=== PATIENT | female | born 1950 | race Caucasian/White ===

== ENCOUNTER 2019-01-31 06:25 | Outpatient (RCR) | payer MEDICAID, SELFPAY | END 2019-02-27 00:01 | LOC: ONCMED 06:25 | PROVIDERS: Visit Provider Nurse Practitioner | DX: C79.51 Secondary malignant neoplasm of bone (principal); C50.411 Malignant neoplasm of upper-outer quadrant of right female breast; C78.7 Secondary malignant neoplasm of liver and intrahepatic bile duct; C77.3 Secondary and unspecified malignant neoplasm of axilla and upper limb lymph nodes; I10 Essential (primary) hypertension; M81.0 Age-related osteoporosis without current pathological fracture; G89.29 Other chronic pain; Z17.0 Estrogen receptor positive status [ER+]; Z79.899 Other long term (current) drug therapy; Z92.21 Personal history of antineoplastic chemotherapy; Z90.13 Acquired absence of bilateral breasts and nipples; Z92.23 Personal history of estrogen therapy; Z85.3 Personal history of malignant neoplasm of breast; Z92.3 Personal history of irradiation | CPT/HCPCS: 36591; 80053; 82607; 82746; 83090; 83921; 85025; 86300; 96372; 99214; J0897; J1642 ==

== ENCOUNTER 2019-03-06 07:25 | Outpatient (RCR) | payer MEDICAID, SELFPAY ==
[2019-03-05 09:08] LABS: Basophils % 0.9 %; Eosinophils # 0.1 10^3/uL (0.0-0.8); Eosinophils % 1.2 %; Hematocrit 29.2 % (37.0-47.0); Hemoglobin 9.8 g/dL (11.5-15.3); Lymphocytes # 1.2 10^3/uL (0.8-4.8); Lymphocytes % 28.1 %; Mean Corpuscular HGB Conc 33.6 g/dL (30.0-36.0); Mean Corpuscular Volume 119.2 fL (81-99); Mean Platelet Volume 10.6 fL (7.4-10.4); Monocytes # 0.5 10^3/uL (0.2-0.9); Monocytes % 11.3 %; Neutrophils # 2.5 10^3/uL (1.8-7.7); Nucleated Red Blood Cells % 0 %; Platelet Count 231 10^3/cmm (130-400); Red Blood Count 2.45 10^6/uL (4.1-5.3); Red Cell Distribution Width 18.5 % (12.1-15.1); White Blood Count 4.2 10^3/uL (4.0-10.0)
[2019-03-05 09:26] LABS: Alanine Aminotransferase 10 U/L (0-33); Alkaline Phosphatase 61 IU/L (35-105); Anion Gap 16.9 (5-19); Aspartate Amino Transferase 23 U/L (0-32); Blood Urea Nitrogen 20 mg/dL (8-23); Calcium 9.8 mg/Dl (8.8-10.2); Carbon Dioxide 23 mmol/L (22-29); Chloride 105 mmol/L (98-107); Globulin 1.7 g/dL (1.3-4.6); Glomerular Filtration Rate 49.7 mL/min (90-130); Glucose 104 mg/dL (74-106); Potassium 3.9 mmol/L (3.5-5.1); Sodium 141 mmol/L (136-145); Total Bilirubin 0.5 mg/dL (0.15-1.2); Total Protein 6.7 g/dL (6.6-8.7)
[2019-03-05] MEDS: denosumab 120 mg SDV SUBCUT (09:58)
--- NOTE | 2019-03-09 08:35 | ONC FU_ITS ---
Dr. Sainz Patient Follow-Up Note Patient: Luiza Salmon Unit #: [id number]: 1950 Dicatated By: Ming Sainz M.D.Date of Visit:Mar 05, 2019 Onc Med Follow-up/Prog Note Chief Complaint: Breast cancer. History of Present Illness: This is a 67 year-old woman with grade 2 infiltrating ductal carcinoma of the right breast, ER positive/VA negataive and HER-23/hannah negative, stage IV (T2, pN2a, M1), metastatic to bone. She has a history of inflammatory carcinoma of the left breast, stage IIIB, ER positive/VA negative and HER-2/hannah positive. It was locally advanced at initial presentation in July 2008. Biopsy showed multifocal grade 3/3 invasive ductal carcinoma with extensive lymphatic invasion within fat and skin. The tumor was ER positive at 100% and VA negative at less than 5%. It was positive for overexpression of HER-2/hannah (3+ by IHC). She was given neoadjuvant chemotherapy with 6 cycles of TCH, which she completed in November 2008. She underwent left modified radical mastectomy in December 2008. Pathology showed residual infiltrating ductal carcinoma within the breast as well as involvement in 8 of 14 axillary lymph nodes. She was given prophylactic chest wall radiation, which she completed in March 2009 to a total dose of 60.4 Gy. She also received a full year of Herceptin, which she completed in July 2009. She started adjuvant hormonal therapy with Femara as of April 2009. It was stopped after completing 5 years of treatment. She did experience some neuropathy from her chemotherapy, and she had some chronic pain issues both during and following her treatment. In September 2016 she presented with a new lump in her right breast. Diagnostic mammogram/ultrasound 10/26/2016 was BI-RADS category high, highly suggestive of malignancy. The mammogram showed an irregular lobular high density mass in the upper outer quadrant measuring 2.3 x 3.1 cm. The ultrasound showed mixed echogenicity mass with irregular margins measuring 1.4 x 1.4 x 3 cm with an adjacent oval nodule or lymph node measuring 3.4 x 6 mm. Ultrasound guided biopsy on 11/09/2016 showed grade 1 infiltrating ductal carcinoma with prominent mucinous carcinoma component. The breast prognostic profile showed ER positive at 99%, strong intensity, with VA negative at less than 1%. The tumor was negative for overexpression of HER-2/hannah, 2+ by IHC and amplification ratio by FISH of 1.1 with 2.1 HER-2 copies/cell. The Ki-67 was unfavorable at 28%. On 11/25/2016 she underwent attempted axillary sentinel lymph node biopsy/right low axillary dissection and right simple mastectomy. There were palpable lymph nodes in the axilla which were noted to be firm and somewhat matted together. Pathology showed grade 2 invasive ductal carcinoma measuring 4.0 cm in greatest dimension. A smaller nodule tumor in the same quadrant measured 1.5 cm. There was involvement in 4 of 4 axillary lymph nodes with the largest metastatic deposit measuring 2.0 cm. There was extranodal extension identified. Her pathologic staging was pT2, pN2a. She had further evaluation with staging PET/CT on 12/25/2016. It showed multiple sites of FDG avid skeletal metastases which included but were not limited to C2, C7, T2, T8, T11, T12, L5, and S4 vertebral bodies as well as multiple sites in the pelvis. In December 2016 she began treatment with fulvestrant in combination with palbociclib, and she also started monthly denosumab injections for the metastatic bone involvement. Thus far she has tolerated the treatment very well. Restaging PET/CT on 04/23/2017 showed overall mixed response of multifocal osseous metastatic disease, with improvement in some areas and progression in others. Also noted was interval development of multifocal hepatic metastatic disease which included lesions with SUVs up to 7.5, largely in the left hepatic lobe. Also noted was new hypermetabolic subcutaneous soft tissue in the inferior left chest wall, strongly suspicious for metastatic disease. On 05/09/2017 she started a trial of palliative chemotherapy with Halaven on a standard day 1/day 8 schedule every 21 days. Her treatment was complicated by neutropenia, requiring growth factor support. She also did receive a dose reduction beginning with cycle 5. A restaging PET/CT on 11/19/2017 showed widespread osseous metastatic lesions but with mild improvement compared to the previous study from March 2017. Multifocal hepatic lesions also were mildly improved. Uptake in the left chest wall was noted to be stable. There was no mention of uptake in the right chest wall. She continued treatment with Halaven. As of 03/08/2018 she began her 14th cylce. Her day 8 treatment was delayed 1 week due to neutropenia. Her restaging PET/CT on 04/01/2018 showed progression of her left chest wall disease and progression of metastatic disease in the liver. Also noted was irregular uptake throughout the bone marrow consistent with widespread osseous metastatic disease, much more extensive compared to the prior study in October 2017. With those findings, she was scheduled for biopsy of a left iliac bone lesion to try and verify the ER/VA and HER-2/hannah status of her metastatic disease. That biopsy unfortunately was nondiagnostic. However, as her left breast cancer was HER-2/hannah positive, I did recommend that she proceed with a trial of TCH chemotherapy. Her other medical illnesses have been limited to hypertension and osteoporosis. She has had some chronic swelling in the lower extremities following chemotherapy. She is a nonsmoker. Surgeries have been limited to left modified radical mastectomy in December 2008 and right mastectomy with low axillary dissection in October 2016. She also had undergone placement of Port-A-Cath venous access device for chemotherapy in 2008. INTERIM HISTORY: She returned on 05/15/2018 for cycle 1 of carboplatin/docetaxel chemotherapy in combination with Herceptin. She had no acute toxicity during the administration of the chemotherapy. However, at completion of her treatment, she had become very lethargic, and she was sent to the emergency room for evaluation. A noncontrast head CT showed no acute findings. CT of the abdomen/pelvis showed prominent small bowel loops as well as distended stomach. An NG tube placed in the emergency room had an output of 300 mL of brownish colored gastric contents. She was admitted for overnight observation, and by the following day she was feeling better and she was able to be discharged home. It was thought that she most likely had opiate-induced ileus. She was then able to proceed with cycle 2 of carboplatin/docetaxel/Herceptin on 06/05/2018. It was administered with a 20% reduction in the chemotherapy dosages. The Herceptin was adjusted to the 3-week dosing schedule. She tolerated it well, and she was then able to continue her treatment at 3-week intervals. As of 08/28/2018 she completed her 6th cycle. In the presence of BRCA2 mutation and a good response to kotzebue based chemotherapy, she was then transitioned to maintenance therapy with olaparib 300 mg twice daily beginning in October 2018. She also has continued the monthly denosumab injections for the metastatic bone involvement. She is seen for a followup visit. She has been feeling pretty good generally. She continues to tolerate the olaparib with no significant adverse effects. Her energy has been getting better gradually. She is doing light work. ECOG score is 1. She has good appetite. She has no fever, night sweats, or hot flashes. She recently has had a head cold, that does seem to be getting better. She does not complain of shortness of breath, cough, or chest pain. She has no GI/ complaints other than occasional acid reflux. She continues have some pain in her right chest wall area. She has no significant joint or bone pain. She has residual numbness/tingling in her hands and feet. Medications: Calcium 1 Tablet (of 500 mg) Oral b.i.d., Eliquis 1 Tablet (of 5 mg) Oral b.i.d., Ergocalciferol 1 (39281 Units) Capsule Oral q 30 days, Gabapentin 1 Tablet (of 600 mg) Capsule Oral t.i.d., Klor-Con M10 1 (10 meq) Tablet, controlled release Oral b.i.d., Magnesium 1 Tablet (of 400 mg) Oral b.i.d., Morphine Sulfate 1 Tablet (of 30 mg) Oral four times a day PRN, Morphine Sulfate ER 1 Tablet (of 100 mg) Capsule SR 24 HR Oral q 12 hours PRN, Olaparib 2 Tablet (of 150 mg) Oral b.i.d., Senokot S 1 Tablet (of 8.6-50 mg) Oral b.i.d. PRN, Vitamin B12 1 Tablet Oral daily Allergies: No Known Allergies. Review of Systems: Constitutional - Her energy is getting better. She has somewhat limited activity, but she is able to do light work. Appetite is good and weight is stable. No fever, chills, hot flashes, or night sweats. ECOG score is 1, ENMT - She had a recent head cold. No mouth sores. No sore throat or difficulty swallowing, Hematologic/Lymphatic - No abnormal bruising or bleeding, Respiratory - No shortness of breath. No cough. No pleuritic pain or hemoptysis, Cardiovascular - No angina pain. No palpitations, Gastrointestinal - No nausea or vomiting. She sometimes has heartburn. No diarrhea or constipation. No blood in the stool or black stools, Genitourinary (F) - No dysuria or hematuria. No urinary frequency. No urgency or incontinence, Musculoskeletal - She still has pain in her right chest wall area. It is managed adequately with medication. She has no other joint or bone pain, Integumentary - No skin complications, Neurologic - No headache or dizziness. She has numbness and tingling in her hands and in her toes, Psychiatric - No anxiety or depression. No insomnia. Vital Signs: Performed on Mar 05, 2019 09:28 Height - 68.00 in Weight - 165.2 lbs (HIGH) BSA - 1.88 sq.m BMI - 25.12 Temperature - 97.9 F (LOW) Pulse - 71 /min Respiration - 22 /min BP - 111/65 mm(hg) O2 Sat - 100 % Pain - 3 Physical Examination: Constitutional - She looks pretty good generally, Eyes - Sclerae nonicteric. Conjunctivae clear, ENMT - There are no lesions noted in the oral cavity, Hematologic/Lymphatic - No cervical or clavicular adenopathy, Respiratory - Lungs are clear, Cardiovascular - Heart rhythm is regular. There is a II/ systolic murmur. There is no gallop or rub noted, Breasts - The right chest wall shows no lesions. There is residual scarring at the site of the nodule in the inferior left chest wall. A lesion in the lateral left chest wall appears slightly pustular. There is no axillary adenopathy, Abdomen - Mildly distended but soft. Liver and spleen are not enlarged. There is no abdominal mass or ascites noted and there is no inguinal adenopathy, Extremities - Mild pedal edema, Neurologic - No focal neurologic deficits noted. Lab/Imaging: Test performed on Mar 05, 2019 09:31 Glucose 104 mg/dL BUN 20 mg/dL Creatinine 1.1 mg/dL Cr Clearance (Est) 59.51 mL/min Sodium 141 mmol/L Potassium 3.9 mmol/L Chloride 105 mmol/L CO2 23 mmol/L Calcium 9.8 mg/dL Protein, Total 6.7 g/dL Albumin 5 g/dL Globulin 1.7 g/dL Bilirubin, Total 0.5 mg/dL Alkaline Phosphatase 61 IU/L AST (SGOT) 23 IU/L ALT (SGPT) 10 IU/L Test performed on Mar 05, 2019 09:14 WBC 4.2 10^9/L RBC 2.45 10^12/L HGB 9.8 g/dL HCT 29.2 % MCV 119.2 fl MCH 40 pg MCHC 33.6 g/dL RDW 18.5 % Platelet Count 231 10^9/L Neutrophils (Gran) 2.5 10^9/L Lymphocytes 1.2 10^9/L Monocytes 0.5 10^9/L Eosinophils 0.1 10^9/L Basophils 0 10^9/L Impression: 1. Patient with grade 2 invasive ductal carcinoma of the right breast, ER positive/VA negative and HER-2/hannah negative. 2. She underwent ultrasound-guided needle biopsy on 11/09/2016 followed by right simple mastectomy/low axillary dissection on 11/25/2016. 3. She was found to have stage IV disease (T2, pN2a, M1), with PET/CT showing multiple sites of bone involvement in the spine and pelvis. 4. 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 She also completed 5 years of adjuvant hormonal therapy with Femara. 5. She had ongoing problems with pain and mobility in the left chest wall/left arm following her radiation. 6. She had multiple chronic complaints following the chemotherapy including chest wall pain, chronic musculoskeletal pain, and fatigue. She also had some symptoms of peripheral neuropathy in the lower extremities. On 01/05/2017 she began treatment with fulvestrant in combination with palbociclib. She also started monthly denosumab injections for the metastatic bone involvement. She has now completed 4 cycles of palbociclib. She has tolerated treatment very well. Her restaging PET/CT on 04/23/2017 showed mixed response with regard to the metastatic bone involvement, but unfortunately there was additional progression with new hepatic metastatic disease and new metastatic involvement in the left chest wall. On 05/09/2017 she began a trial of palliative chemotherapy with Halaven on a standard day 1/day 8 schedule every 21 days. She has completed 5 cycles of treatment. It has been complicated by neutropenia, requiring growth factor support. She also received a dose reduction beginning with cycle 5. Restaging PET/CT on 11/19/2017 did show some improvement in the osseous and hepatic metastatic disease with no obvious disease progression. She then continued treatment with Halaven, which she tolerated well with growth factor support. As of 03/08/2018 she began her 14th cycle of treatment. Her day 8 treatment was delayed one week. Her restaging PET/CT on 04/01/2018 showed evidence of significant disease progression including the left chest wall and liver as well as extensive metastatic bone involvement. She was then scheduled for a biopsy of the left iliac bone lesion to try and verify the ER/VA and HER-2/hannah status of her metastatic disease. That biopsy unfortunately was nondiagnostic. Under the circumstances, with her left breast cancer having been HER-2/hannah positive, I did recommend further treatment with carboplatin/docetaxel chemotherapy in combination with Herceptin. She began cycle 1 of TCH on 05/15/2018. Her treatment was complicated by acute mental status changes. She required overnight observation. The only significant finding on her evaluation was evidence of ileus, which was thought to be opiate induced. She improved following aspiration of her gastric contents and other supportive treatment measures. She had otherwise tolerated the treatment well. She continued with cycle 2 on 06/05/2018. It was administered with a 20% reduction in the chemotherapy dosages. The Herceptin was adjusted to the 3-week dosing schedule. She tolerated it well, and she was then able to continue her treatment at 3-week intervals. As of 08/28/2018 she completed her 6th cycle. During that time, she was evaluated with a next generation sequencing study, which did confirm the presence of a BRCA2 mutation. In the setting of a good response to kotzebue based chemotherapy, she was then transitioned to maintenance therapy with olaparib 300 mg twice daily beginning in October 2018. During follow-up she has been tolerating the olaparib with no significant adverse effects. She has been showing some gradual improvement in her performance status, and thus far there has been no obvious progression of the breast cancer. By clinical evaluation she has had a good response to the chemotherapy, and overall she has continued it well with dose reductions. Her a next generation sequencing study did show evidence of BRCA2 mutation. This is presumed to be somatic. Plan: She will continue her maintenance therapy with olaparib 300 mg twice daily. She will be given denosumab 120 mg by subcutaneous injection for the metastatic bone involvement. She returns in 1 month. Signed By: Ming Sainz M.D. <<Signature on File>>
== END 2019-03-30 23:59 | disposition home or self-care (01) ==
LOC: ONCMED 07:25
PROVIDERS: Visit Provider Internal Medicine Medical Oncology
DX: C79.51 Secondary malignant neoplasm of bone (principal); C50.411 Malignant neoplasm of upper-outer quadrant of right female breast; C78.7 Secondary malignant neoplasm of liver and intrahepatic bile duct; C77.3 Secondary and unspecified malignant neoplasm of axilla and upper limb lymph nodes; Z85.3 Personal history of malignant neoplasm of breast; Z17.0 Estrogen receptor positive status [ER+]; I10 Essential (primary) hypertension; M81.0 Age-related osteoporosis without current pathological fracture; Z79.899 Other long term (current) drug therapy; Z79.891 Long term (current) use of opiate analgesic; Z90.13 Acquired absence of bilateral breasts and nipples; Z92.3 Personal history of irradiation; Z92.23 Personal history of estrogen therapy
CPT/HCPCS: 36415; 36591; 80053; 85025; 86300; 96372; 99214; J0897

== ENCOUNTER 2019-04-05 05:57 | Outpatient (RCR) | payer MEDICAID, SELFPAY ==
[2019-04-05 09:41] LABS: Basophils % 1.2 %; Eosinophils % 0.9 %; Hematocrit 28.8 % (37.0-47.0); Hemoglobin 9.9 g/dL (11.5-15.3); Lymphocytes # 0.8 10^3/uL (0.8-4.8); Lymphocytes % 24.3 %; Mean Corpuscular HGB Conc 34.4 g/dL (30.0-36.0); Mean Corpuscular Hemoglobin 40.9 pg (28.0-34.0); Mean Platelet Volume 10.4 fL (7.4-10.4); Monocytes # 0.4 10^3/uL (0.2-0.9); Monocytes % 13.1 %; Neutrophils # 1.9 10^3/uL (1.8-7.7); Neutrophils % 60.2 %; Nucleated Red Blood Cells % 0 %; Platelet Count 215 10^3/cmm (130-400); Red Blood Count 2.42 10^6/uL (4.1-5.3); Red Cell Distribution Width 17.4 % (12.1-15.1); White Blood Count 3.2 10^3/uL (4.0-10.0)
[2019-04-05 09:56] LABS: Alanine Aminotransferase 9 U/L (0-33); Albumin Level 3.9 g/dL (3.5-5.2); Alkaline Phosphatase 64 IU/L (35-105); Anion Gap 14.7 (5-19); Aspartate Amino Transferase 19 U/L (0-32); Blood Urea Nitrogen 13 mg/dL (8-23); Carbon Dioxide 25 mmol/L (22-29); Chloride 103 mmol/L (98-107); Globulin 2.7 g/dL (1.3-4.6); Glomerular Filtration Rate 62.6 mL/min (90-130); Glucose 106 mg/dL (65-115); Potassium 3.7 mmol/L (3.5-5.1); Sodium 139 mmol/L (136-145); Total Bilirubin 0.6 mg/dL (0.15-1.2); Total Protein 6.6 g/dL (6.6-8.7)
[2019-04-05 10:10] LABS: Vitamin B12 476 pg/mL (232-1245)
[2019-04-05] MEDS: denosumab 120 mg SDV SUBCUT (11:36)
[2019-04-05 12:25] LABS: Thyroid Stimulating Hormone 1.65 uIU/mL (0.27-4.20)
[2019-04-05 12:33] LABS: Folate Level 9.2 ng/mL (4.8-37.3)
== END 2019-04-28 23:59 | disposition home or self-care (01) ==
LOC: ONCMED 05:57
PROVIDERS: Nurse Practitioner; Visit Provider Internal Medicine Medical Oncology
DX: C79.51 Secondary malignant neoplasm of bone (principal); C78.7 Secondary malignant neoplasm of liver and intrahepatic bile duct; C50.411 Malignant neoplasm of upper-outer quadrant of right female breast; C77.3 Secondary and unspecified malignant neoplasm of axilla and upper limb lymph nodes; G62.0 Drug-induced polyneuropathy; T45.1X5A Adverse effect of antineoplastic and immunosuppressive drugs, initial encounter; Z17.0 Estrogen receptor positive status [ER+]; I10 Essential (primary) hypertension; M81.0 Age-related osteoporosis without current pathological fracture; G89.29 Other chronic pain; Z79.899 Other long term (current) drug therapy; Z79.01 Long term (current) use of anticoagulants; Z92.3 Personal history of irradiation; Z85.3 Personal history of malignant neoplasm of breast; Z92.23 Personal history of estrogen therapy; Z90.13 Acquired absence of bilateral breasts and nipples
CPT/HCPCS: 36591; 80053; 82607; 82746; 84443; 85025; 86300; 96372; 99214; J0897

== ENCOUNTER 2019-05-07 06:01 | Outpatient (RCR) | payer MEDICAID, SELFPAY ==
[2019-05-07 09:26] LABS: Basophils % 1.4 %; Eosinophils % 1.4 %; Hematocrit 28.1 % (37.0-47.0); Hemoglobin 9.5 g/dL (11.5-15.3); Lymphocytes % 32.8 %; Mean Corpuscular HGB Conc 33.8 g/dL (30.0-36.0); Mean Corpuscular Hemoglobin 40.1 pg (28.0-34.0); Mean Corpuscular Volume 118.6 fL (81-99); Mean Platelet Volume 9.9 fL (7.4-10.4); Monocytes # 0.4 10^3/uL (0.2-0.9); Monocytes % 14.5 %; Neutrophils # 1.5 10^3/uL (1.8-7.7); Neutrophils % 49.9 %; Platelet Count 194 10^3/cmm (130-400); Red Blood Count 2.37 10^6/uL (4.1-5.3)
[2019-05-07 09:38] LABS: Alanine Aminotransferase 12 U/L (0-33); Albumin Level 3.9 g/dL (3.5-5.2); Alkaline Phosphatase 78 IU/L (35-105); Aspartate Amino Transferase 25 U/L (0-32); Blood Urea Nitrogen 14 mg/dL (8-23); Calcium 9.9 mg/dL (8.5-10.5); Carbon Dioxide 25 mmol/L (22-29); Chloride 102 mmol/L (98-107); Globulin 3.2 g/dL (1.3-4.6); Glomerular Filtration Rate 49.7 mL/min (90-130); Glucose 120 mg/dL (65-115); Osmolality Calculated 285 mOsm/kg (285-295); Sodium 139 mmol/L (136-145); Total Bilirubin 0.4 mg/dL (0.15-1.2); Total Protein 7.1 g/dL (6.6-8.7)
[2019-05-07] MEDS: denosumab 120 mg SDV SUBCUT (11:17)
[2019-05-08 09:38] LABS: CA 27.29 166 U/mL (<38)
--- NOTE | 2019-05-24 12:35 | ONC FU_ITS ---
Dr. Sainz Patient Follow-Up Note Patient: Luiza Salmon Unit #: [id number]: 1950 Dicatated By: Ming Sainz M.D.Date of Visit:May 07, 2019 Onc Med Follow-up/Prog Note Chief Complaint: Breast cancer. History of Present Illness: This is a 68 year-old woman with grade 2 infiltrating ductal carcinoma of the right breast, ER positive/IN negataive and HER-23/hannah negative, stage IV (T2, pN2a, M1), metastatic to bone. She has a history of inflammatory carcinoma of the left breast, stage IIIB, ER positive/IN negative and HER-2/hannah positive. It was locally advanced at initial presentation in July 2008. Biopsy showed multifocal grade 3/3 invasive ductal carcinoma with extensive lymphatic invasion within fat and skin. The tumor was ER positive at 100% and IN negative at less than 5%. It was positive for overexpression of HER-2/hannah (3+ by IHC). She was given neoadjuvant chemotherapy with 6 cycles of TCH, which she completed in November 2008. She underwent left modified radical mastectomy in December 2008. Pathology showed residual infiltrating ductal carcinoma within the breast as well as involvement in 8 of 14 axillary lymph nodes. She was given prophylactic chest wall radiation, which she completed in March 2009 to a total dose of 60.4 Gy. She also received a full year of Herceptin, which she completed in July 2009. She started adjuvant hormonal therapy with Femara as of April 2009. It was stopped after completing 5 years of treatment. She did experience some neuropathy from her chemotherapy, and she had some chronic pain issues both during and following her treatment. In September 2016 she presented with a new lump in her right breast. Diagnostic mammogram/ultrasound 10/26/2016 was BI-RADS category high, highly suggestive of malignancy. The mammogram showed an irregular lobular high density mass in the upper outer quadrant measuring 2.3 x 3.1 cm. The ultrasound showed mixed echogenicity mass with irregular margins measuring 1.4 x 1.4 x 3 cm with an adjacent oval nodule or lymph node measuring 3.4 x 6 mm. Ultrasound guided biopsy on 11/09/2016 showed grade 1 infiltrating ductal carcinoma with prominent mucinous carcinoma component. The breast prognostic profile showed ER positive at 99%, strong intensity, with IN negative at less than 1%. The tumor was negative for overexpression of HER-2/hannah, 2+ by IHC and amplification ratio by FISH of 1.1 with 2.1 HER-2 copies/cell. The Ki-67 was unfavorable at 28%. On 11/25/2016 she underwent attempted axillary sentinel lymph node biopsy/right low axillary dissection and right simple mastectomy. There were palpable lymph nodes in the axilla which were noted to be firm and somewhat matted together. Pathology showed grade 2 invasive ductal carcinoma measuring 4.0 cm in greatest dimension. A smaller nodule tumor in the same quadrant measured 1.5 cm. There was involvement in 4 of 4 axillary lymph nodes with the largest metastatic deposit measuring 2.0 cm. There was extranodal extension identified. Her pathologic staging was pT2, pN2a. She had further evaluation with staging PET/CT on 12/25/2016. It showed multiple sites of FDG avid skeletal metastases which included but were not limited to C2, C7, T2, T8, T11, T12, L5, and S4 vertebral bodies as well as multiple sites in the pelvis. In December 2016 she began treatment with fulvestrant in combination with palbociclib, and she also started monthly denosumab injections for the metastatic bone involvement. Thus far she has tolerated the treatment very well. Restaging PET/CT on 04/23/2017 showed overall mixed response of multifocal osseous metastatic disease, with improvement in some areas and progression in others. Also noted was interval development of multifocal hepatic metastatic disease which included lesions with SUVs up to 7.5, largely in the left hepatic lobe. Also noted was new hypermetabolic subcutaneous soft tissue in the inferior left chest wall, strongly suspicious for metastatic disease. On 05/09/2017 she started a trial of palliative chemotherapy with Halaven on a standard day 1/day 8 schedule every 21 days. Her treatment was complicated by neutropenia, requiring growth factor support. She also did receive a dose reduction beginning with cycle 5. A restaging PET/CT on 11/19/2017 showed widespread osseous metastatic lesions but with mild improvement compared to the previous study from March 2017. Multifocal hepatic lesions also were mildly improved. Uptake in the left chest wall was noted to be stable. There was no mention of uptake in the right chest wall. She continued treatment with Halaven. As of 03/08/2018 she began her 14th cylce. Her day 8 treatment was delayed 1 week due to neutropenia. Her restaging PET/CT on 04/01/2018 showed progression of her left chest wall disease and progression of metastatic disease in the liver. Also noted was irregular uptake throughout the bone marrow consistent with widespread osseous metastatic disease, much more extensive compared to the prior study in October 2017. With those findings, she was scheduled for biopsy of a left iliac bone lesion to try and verify the ER/IN and HER-2/hannah status of her metastatic disease. That biopsy unfortunately was nondiagnostic. However, as her left breast cancer was HER-2/hannah positive, I did recommend that she proceed with a trial of TCH chemotherapy. She returned on 05/15/2018 for cycle 1 of carboplatin/docetaxel chemotherapy in combination with Herceptin. She had no acute toxicity during the administration of the chemotherapy. However, at completion of her treatment, she had become very lethargic, and she was sent to the emergency room for evaluation. A noncontrast head CT showed no acute findings. CT of the abdomen/pelvis showed prominent small bowel loops as well as distended stomach. An NG tube placed in the emergency room had an output of 300 mL of brownish colored gastric contents. She was admitted for overnight observation, and by the following day she was feeling better and she was able to be discharged home. It was thought that she most likely had opiate-induced ileus. She was then able to proceed with cycle 2 of carboplatin/docetaxel/Herceptin on 06/05/2018. It was administered with a 20% reduction in the chemotherapy dosages. The Herceptin was adjusted to the 3-week dosing schedule. She tolerated it well, and she was then able to continue her treatment at 3-week intervals. As of 08/28/2018 she completed her 6th cycle. In the presence of BRCA2 mutation and a good response to [place] based chemotherapy, she was then transitioned to maintenance therapy with olaparib 300 mg twice daily beginning in October 2018. She also continued the monthly denosumab injections for the metastatic bone involvement. Her other medical illnesses have been limited to hypertension and osteoporosis. She has had some chronic swelling in the lower extremities following chemotherapy. She is a nonsmoker. Surgeries have been limited to left modified radical mastectomy in December 2008 and right mastectomy with low axillary dissection in October 2016. She also had undergone placement of Port-A-Cath venous access device for chemotherapy in 2008. INTERIM HISTORY: She is seen for a followup visit. She has been feeling pretty good generally. She says her energy is a little better. She is doing light work. Her appetite is good and her weight is stable. She has no fever, night sweats, or hot flashes. Her ECOG score is 1. She has had no mouth sores. She has no shortness of breath, cough, or chest pain. She currently has no GI or complaints. She still has some pain in the left chest wall/axillary area. It is adequately managed with medication. She does not complain of headache or dizziness. She has some residual numbness/tingling in her fingers and in her feet. Medications: Calcium 1 Tablet (of 500 mg) Oral b.i.d., Eliquis 1 Tablet (of 5 mg) Oral b.i.d., Ergocalciferol 1 (77415 Units) Capsule Oral q 30 days, Gabapentin 1 Tablet (of 600 mg) Capsule Oral t.i.d., Klor-Con M10 1 (10 meq) Tablet, controlled release Oral b.i.d., Magnesium 1 Tablet (of 400 mg) Oral b.i.d., Morphine Sulfate 1 Tablet (of 30 mg) Oral four times a day PRN, Morphine Sulfate ER 1 Tablet (of 100 mg) Capsule SR 24 HR Oral q 12 hours PRN, Olaparib 2 Tablet (of 150 mg) Oral b.i.d., Protonix 1 (40 mg) Tablet, enteric coated Oral daily, Senokot S 1 Tablet (of 8.6-50 mg) Oral b.i.d. PRN, Vitamin B12 1 Tablet Oral daily Allergies: No Known Allergies. Review of Systems: Constitutional - Her energy is a little better. She is doing some light work. Appetite is good and weight is stable. No fever, chills, hot flashes, or night sweats. ECOG score is 1, ENMT - No sinus congestion/drainage. No mouth sores. No sore throat or difficulty swallowing, Hematologic/Lymphatic - No abnormal bruising or bleeding, Respiratory - No shortness of breath. No cough. No pleuritic pain or hemoptysis, Cardiovascular - No angina pain. No palpitations, Gastrointestinal - No nausea or vomiting. Her acid reflux is adequately managed with medication. No diarrhea or constipation. No blood in the stool or black stools, Genitourinary (F) - No dysuria or hematuria. No urinary frequency. No urgency or incontinence, Musculoskeletal - She has pain in her left chest wall/axillary area. It is managed adequately with medication. She has no other joint or bone pain, Integumentary - No skin complications, Neurologic - No headache or dizziness. She has numbness and tingling in her fingers and in her feet, Psychiatric - No anxiety or depression. No insomnia. Vital Signs: Performed on May 07, 2019 10:10 Height - 68.00 in Weight - 162.0 lbs (HIGH) BSA - 1.87 sq.m BMI - 24.63 Temperature - 98.3 F (LOW) Pulse - 80 /min Respiration - 20 /min BP - 112/74 mm(hg) O2 Sat - 100 % Pain - 0 Physical Examination: Constitutional - She looks pretty good generally, Eyes - Sclerae nonicteric. Conjunctivae clear, ENMT - There are no lesions noted in the oral cavity, Hematologic/Lymphatic - No cervical or clavicular adenopathy, Respiratory - Lungs are clear, Cardiovascular - Heart rhythm is regular. There is a II/ systolic murmur. There is no gallop or rub noted, Breasts - The right chest wall shows no lesions. There is residual scarring at the site of the nodule in the inferior left chest wall. There is no evidence of recurrence of the chest wall disease. There is no axillary adenopathy, Abdomen - Soft. Liver and spleen are not enlarged. There is no abdominal mass or ascites noted and there is no inguinal adenopathy, Extremities - Mild edema of the ankles and feet, Neurologic - No focal neurologic deficits noted. Lab/Imaging: Test performed on May 07, 2019 09:08 Sodium 139 mmol/L Potassium 4.0 mmol/L Chloride 102 mmol/L CO2 25 mmol/L Anion Gap 16.0 BUN 14 mg/dL Creatinine 1.1 mg/dL Cr Clearance (Est) 58.36 mL/min eGFR 49.7 mL/min Glucose 120 mg/dL Calcium 9.9 mg/dL Protein, Total 7.1 g/dL Albumin 3.9 g/dL Globulin 3.2 g/dL Bilirubin, Total 0.4 mg/dL ALT (SGPT) 12 U/L AST (SGOT) 25 U/L Alkaline Phosphatase 78 IU/L WBC 3.0 10 3/uL RBC 2.37 10 6/uL HGB 9.5 g/dL HCT 28.1 % MCV 118.6 fL MCH 40.1 pg MCHC 33.8 g/dL RDW 18.0 % Platelet Count 194 10 3/cmm MPV 9.9 fL Neutrophils 1.5 10 3/uL Lymphocytes 1.0 10 3/uL Monocytes 0.4 10 3/uL Eosinophils 0.0 10 3/uL Basophils 0.0 10 3/uL Neutrophil % 49.9 % Lymphocyte % 32.8 % Monocyte % 14.5 % Eosinophil % 1.4 % Basophils % 1.4 % Impression: 1. Patient with grade 2 invasive ductal carcinoma of the right breast, ER positive/IN negative and HER-2/hannah negative. 2. She underwent ultrasound-guided needle biopsy on 11/09/2016 followed by right simple mastectomy/low axillary dissection on 11/25/2016. 3. She was found to have stage IV disease (T2, pN2a, M1), with PET/CT showing multiple sites of bone involvement in the spine and pelvis. 4. 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 She also completed 5 years of adjuvant hormonal therapy with Femara. 5. She had ongoing problems with pain and mobility in the left chest wall/left arm following her radiation. 6. She had multiple chronic complaints following the chemotherapy including chest wall pain, chronic musculoskeletal pain, and fatigue. She also had some symptoms of peripheral neuropathy in the lower extremities. On 01/05/2017 she began treatment with fulvestrant in combination with palbociclib. She also started monthly denosumab injections for the metastatic bone involvement. She has now completed 4 cycles of palbociclib. She has tolerated treatment very well. Her restaging PET/CT on 04/23/2017 showed mixed response with regard to the metastatic bone involvement, but unfortunately there was additional progression with new hepatic metastatic disease and new metastatic involvement in the left chest wall. On 05/09/2017 she began a trial of palliative chemotherapy with Halaven on a standard day 1/day 8 schedule every 21 days. She has completed 5 cycles of treatment. It has been complicated by neutropenia, requiring growth factor support. She also received a dose reduction beginning with cycle 5. Restaging PET/CT on 11/19/2017 did show some improvement in the osseous and hepatic metastatic disease with no obvious disease progression. She then continued treatment with Halaven, which she tolerated well with growth factor support. As of 03/08/2018 she began her 14th cycle of treatment. Her day 8 treatment was delayed one week. Her restaging PET/CT on 04/01/2018 showed evidence of significant disease progression including the left chest wall and liver as well as extensive metastatic bone involvement. She was then scheduled for a biopsy of the left iliac bone lesion to try and verify the ER/IN and HER-2/hannah status of her metastatic disease. That biopsy unfortunately was nondiagnostic. Under the circumstances, with her left breast cancer having been HER-2/hannah positive, I did recommend further treatment with carboplatin/docetaxel chemotherapy in combination with Herceptin. She began cycle 1 of TCH on 05/15/2018. Her treatment was complicated by acute mental status changes. She required overnight observation. The only significant finding on her evaluation was evidence of ileus, which was thought to be opiate induced. She improved following aspiration of her gastric contents and other supportive treatment measures. She had otherwise tolerated the treatment well. She continued with cycle 2 on 06/05/2018. It was administered with a 20% reduction in the chemotherapy dosages. The Herceptin was adjusted to the 3-week dosing schedule. She tolerated it well, and she was then able to continue her treatment at 3-week intervals. As of 08/28/2018 she completed her 6th cycle. By clinical evaluation she had a good response to the TC chemotherapy, and overall she tolerated it well with dose reductions. During that time, she was evaluated with a next generation sequencing study, which did confirm the presence of a BRCA2 mutation, presumed to be somatic. In the setting of a good response to [place] based chemotherapy, she was then transitioned to maintenance therapy with olaparib 300 mg twice daily beginning in October 2018. During follow-up she has been tolerating the olaparib with no significant adverse effects. She has had gradual improvement in her performance status after stopping the chemotherapy. At this point she appears to be doing well clinically with no evidemce of progression of the breast cancer. Plan: She will continue her maintenance therapy with olaparib 300 mg twice daily. She will be given denosumab 120 mg by subcutaneous injection for the metastatic bone involvement. She returns in 1 month. Signed By: Ming Sainz M.D. <<Signature on File>>
== END 2019-05-29 23:59 | disposition home or self-care (01) ==
LOC: ONCMED 06:01
PROVIDERS: Nurse Practitioner; Visit Provider Internal Medicine Medical Oncology
DX: C79.51 Secondary malignant neoplasm of bone (principal); C50.411 Malignant neoplasm of upper-outer quadrant of right female breast; C78.7 Secondary malignant neoplasm of liver and intrahepatic bile duct; C77.3 Secondary and unspecified malignant neoplasm of axilla and upper limb lymph nodes; Z17.0 Estrogen receptor positive status [ER+]; I10 Essential (primary) hypertension; M81.0 Age-related osteoporosis without current pathological fracture; Z79.01 Long term (current) use of anticoagulants; Z79.891 Long term (current) use of opiate analgesic; Z79.899 Other long term (current) drug therapy; Z92.3 Personal history of irradiation; Z85.3 Personal history of malignant neoplasm of breast; Z92.21 Personal history of antineoplastic chemotherapy; Z92.23 Personal history of estrogen therapy; Z90.13 Acquired absence of bilateral breasts and nipples
CPT/HCPCS: 36591; 80053; 85025; 86300; 96372; 99214; J0897

== ENCOUNTER 2019-06-07 07:00 | Outpatient (RCR) | payer MEDICAID, SELFPAY ==
[2019-06-07 09:46] LABS: Basophils # 0.1 10^3/uL (0.0-0.1); Basophils % 1.3 %; Eosinophils # 0.1 10^3/uL (0.0-0.8); Eosinophils % 1.3 %; Hematocrit 28.7 % (37.0-47.0); Hemoglobin 9.6 g/dL (11.5-15.3); Lymphocytes # 1.2 10^3/uL (0.8-4.8); Lymphocytes % 29.2 %; Mean Corpuscular HGB Conc 33.4 g/dL (30.0-36.0); Mean Corpuscular Hemoglobin 39.7 pg (28.0-34.0); Mean Corpuscular Volume 118.6 fL (81-99); Mean Platelet Volume 10.8 fL (7.4-10.4); Monocytes # 0.4 10^3/uL (0.2-0.9); Monocytes % 10.8 %; Neutrophils # 2.3 10^3/uL (1.8-7.7); Neutrophils % 56.9 %; Platelet Count 211 10^3/cmm (130-400); Red Blood Count 2.42 10^6/uL (4.1-5.3); Red Cell Distribution Width 17.9 % (12.1-15.1)
[2019-06-07 09:57] LABS: Alanine Aminotransferase 7 U/L (0-33); Albumin Level 4.2 g/dL (3.5-5.2); Alkaline Phosphatase 75 IU/L (35-105); Anion Gap 15.2 (5-19); Aspartate Amino Transferase 19 U/L (0-32); Blood Urea Nitrogen 10 mg/dL (8-23); Calcium 9.7 mg/dL (8.5-10.5); Carbon Dioxide 25 mmol/L (22-29); Chloride 103 mmol/L (98-107); Globulin 2.9 g/dL (1.3-4.6); Glomerular Filtration Rate 55.5 mL/min (90-130); Glucose 116 mg/dL (65-115); Osmolality Calculated 285 mOsm/kg (285-295); Potassium 4.2 mmol/L (3.5-5.1); Sodium 139 mmol/L (136-145); Total Bilirubin 0.5 mg/dL (0.15-1.2); Total Protein 7.1 g/dL (6.6-8.7)
[2019-06-07] MEDS: denosumab 120 mg SDV SUBCUT (11:45)
--- NOTE | 2019-06-07 17:58 | ONC FU_ITS ---
Dr. Sainz Patient Follow-Up Note Patient: Luiza Salmon Unit #: [id number]: 1950 Dicatated By: Ming Sainz M.D.Date of Visit:Jun 07, 2019 Onc Med Follow-up/Prog Note Chief Complaint: Breast cancer. History of Present Illness: This is a 68 year-old woman with grade 2 infiltrating ductal carcinoma of the right breast, ER positive/KS negataive and HER-23/hannah negative, stage IV (T2, pN2a, M1), metastatic to bone. She has a history of inflammatory carcinoma of the left breast, stage IIIB, ER positive/KS negative and HER-2/hannah positive. It was locally advanced at initial presentation in July 2008. Biopsy showed multifocal grade 3/3 invasive ductal carcinoma with extensive lymphatic invasion within fat and skin. The tumor was ER positive at 100% and KS negative at less than 5%. It was positive for overexpression of HER-2/hannah (3+ by IHC). She was given neoadjuvant chemotherapy with 6 cycles of TCH, which she completed in November 2008. She underwent left modified radical mastectomy in December 2008. Pathology showed residual infiltrating ductal carcinoma within the breast as well as involvement in 8 of 14 axillary lymph nodes. She was given prophylactic chest wall radiation, which she completed in March 2009 to a total dose of 60.4 Gy. She also received a full year of Herceptin, which she completed in July 2009. She started adjuvant hormonal therapy with Femara as of April 2009. It was stopped after completing 5 years of treatment. She did experience some neuropathy from her chemotherapy, and she had some chronic pain issues both during and following her treatment. In September 2016 she presented with a new lump in her right breast. Diagnostic mammogram/ultrasound 10/26/2016 was BI-RADS category high, highly suggestive of malignancy. The mammogram showed an irregular lobular high density mass in the upper outer quadrant measuring 2.3 x 3.1 cm. The ultrasound showed mixed echogenicity mass with irregular margins measuring 1.4 x 1.4 x 3 cm with an adjacent oval nodule or lymph node measuring 3.4 x 6 mm. Ultrasound guided biopsy on 11/09/2016 showed grade 1 infiltrating ductal carcinoma with prominent mucinous carcinoma component. The breast prognostic profile showed ER positive at 99%, strong intensity, with KS negative at less than 1%. The tumor was negative for overexpression of HER-2/hannah, 2+ by IHC and amplification ratio by FISH of 1.1 with 2.1 HER-2 copies/cell. The Ki-67 was unfavorable at 28%. On 11/25/2016 she underwent attempted axillary sentinel lymph node biopsy/right low axillary dissection and right simple mastectomy. There were palpable lymph nodes in the axilla which were noted to be firm and somewhat matted together. Pathology showed grade 2 invasive ductal carcinoma measuring 4.0 cm in greatest dimension. A smaller nodule tumor in the same quadrant measured 1.5 cm. There was involvement in 4 of 4 axillary lymph nodes with the largest metastatic deposit measuring 2.0 cm. There was extranodal extension identified. Her pathologic staging was pT2, pN2a. She had further evaluation with staging PET/CT on 12/25/2016. It showed multiple sites of FDG avid skeletal metastases which included but were not limited to C2, C7, T2, T8, T11, T12, L5, and S4 vertebral bodies as well as multiple sites in the pelvis. In December 2016 she began treatment with fulvestrant in combination with palbociclib, and she also started monthly denosumab injections for the metastatic bone involvement. Thus far she has tolerated the treatment very well. Restaging PET/CT on 04/23/2017 showed overall mixed response of multifocal osseous metastatic disease, with improvement in some areas and progression in others. Also noted was interval development of multifocal hepatic metastatic disease which included lesions with SUVs up to 7.5, largely in the left hepatic lobe. Also noted was new hypermetabolic subcutaneous soft tissue in the inferior left chest wall, strongly suspicious for metastatic disease. On 05/09/2017 she started a trial of palliative chemotherapy with Halaven on a standard day 1/day 8 schedule every 21 days. Her treatment was complicated by neutropenia, requiring growth factor support. She also did receive a dose reduction beginning with cycle 5. A restaging PET/CT on 11/19/2017 showed widespread osseous metastatic lesions but with mild improvement compared to the previous study from March 2017. Multifocal hepatic lesions also were mildly improved. Uptake in the left chest wall was noted to be stable. There was no mention of uptake in the right chest wall. She continued treatment with Halaven. As of 03/08/2018 she began her 14th cylce. Her day 8 treatment was delayed 1 week due to neutropenia. Her restaging PET/CT on 04/01/2018 showed progression of her left chest wall disease and progression of metastatic disease in the liver. Also noted was irregular uptake throughout the bone marrow consistent with widespread osseous metastatic disease, much more extensive compared to the prior study in October 2017. With those findings, she was scheduled for biopsy of a left iliac bone lesion to try and verify the ER/KS and HER-2/hannah status of her metastatic disease. That biopsy unfortunately was nondiagnostic. However, as her left breast cancer was HER-2/hannah positive, I did recommend that she proceed with a trial of TCH chemotherapy. She returned on 05/15/2018 for cycle 1 of carboplatin/docetaxel chemotherapy in combination with Herceptin. She had no acute toxicity during the administration of the chemotherapy. However, at completion of her treatment, she had become very lethargic, and she was sent to the emergency room for evaluation. A noncontrast head CT showed no acute findings. CT of the abdomen/pelvis showed prominent small bowel loops as well as distended stomach. An NG tube placed in the emergency room had an output of 300 mL of brownish colored gastric contents. She was admitted for overnight observation, and by the following day she was feeling better and she was able to be discharged home. It was thought that she most likely had opiate-induced ileus. She was then able to proceed with cycle 2 of carboplatin/docetaxel/Herceptin on 06/05/2018. It was administered with a 20% reduction in the chemotherapy dosages. The Herceptin was adjusted to the 3-week dosing schedule. She tolerated it well, and she was then able to continue her treatment at 3-week intervals. As of 08/28/2018 she completed her 6th cycle. In the presence of BRCA2 mutation and a good response to p[place] based chemotherapy, she was then transitioned to maintenance therapy with olaparib 300 mg twice daily beginning in October 2018. She also continued the monthly denosumab injections for the metastatic bone involvement. Her other medical illnesses have been limited to hypertension and osteoporosis. She has had some chronic swelling in the lower extremities following chemotherapy. She is a nonsmoker. Surgeries have been limited to left modified radical mastectomy in December 2008 and right mastectomy with low axillary dissection in October 2016. She also had undergone placement of Port-A-Cath venous access device for chemotherapy in 2008. INTERIM HISTORY: She is seen for a followup visit. She has been feeling pretty good generally, though she says her energy is just so-so. She has not been as active lately. ECOG score is 2. She has good appetite. She has no fever, night sweats, or hot flashes. She does not complain of shortness of breath, cough, or chest pain. She still sometimes has acid reflux. She has no other GI or complaints. She has pain in the chest wall off and on, mainly on the right side but also sometimes on the left. The pain is managed adequately with her medication. She does not complain of headache or dizziness. She has residual numbness/tingling in her fingers and toes. Medications: Calcium 1 Tablet (of 500 mg) Oral b.i.d., Eliquis 1 Tablet (of 5 mg) Oral b.i.d., Ergocalciferol 1 (70560 Units) Capsule Oral q 30 days, Gabapentin 1 Tablet (of 600 mg) Capsule Oral t.i.d., Klor-Con M10 1 (10 meq) Tablet, controlled release Oral b.i.d., Magnesium 1 Tablet (of 400 mg) Oral b.i.d., Morphine Sulfate 1 Tablet (of 30 mg) Oral four times a day PRN, Morphine Sulfate ER 1 Tablet (of 100 mg) Capsule SR 24 HR Oral q 12 hours PRN, Olaparib 2 Tablet (of 150 mg) Oral b.i.d., Protonix 1 (40 mg) Tablet, enteric coated Oral daily, Senokot S 1 Tablet (of 8.6-50 mg) Oral b.i.d. PRN, Vitamin B12 1 Tablet Oral daily Allergies: No Known Allergies. Review of Systems: Constitutional - Her energy level is so-so. She is mainly sedentary at home. Her appetite is good and weight is stable. No fever, chills, hot flashes, or night sweats. ECOG score is 2, ENMT - She has a little bit of sinus drainage. No mouth sores. No sore throat or difficulty swallowing, Hematologic/Lymphatic - No abnormal bruising or bleeding, Respiratory - No shortness of breath. No cough. No pleuritic pain or hemoptysis, Cardiovascular - No angina pain. No palpitations, Gastrointestinal - No nausea or vomiting. Her acid reflux is well managed with Protonix. No diarrhea or constipation. No blood in the stool or black stools, Genitourinary (F) - No dysuria or hematuria. No urinary frequency. No urgency or incontinence, Musculoskeletal - She has pain in her chest wall on both sides, but mainly on the right. Her pain is adequately managed with morphine, Integumentary - No skin complications, Neurologic - No headache or dizziness. She has some tingling in her fingers and toes, Psychiatric - No anxiety or depression. No insomnia. Vital Signs: Performed on Jun 07, 2019 10:47 Height - 68.00 in Weight - 162.8 lbs (HIGH) BSA - 1.87 sq.m BMI - 24.75 Temperature - 97.5 F (LOW) Pulse - 69 /min Respiration - 18 /min BP - 104/72 mm(hg) O2 Sat - 99 % Pain - 3 Physical Examination: Constitutional - She looks pretty good generally, Eyes - Sclerae nonicteric. Conjunctivae clear, ENMT - There are no lesions noted in the oral cavity, Hematologic/Lymphatic - No cervical or clavicular adenopathy, Respiratory - Lungs are clear, Cardiovascular - Heart rhythm is regular. There is a II/ systolic murmur. There is no gallop or rub noted, Breasts - The right chest wall shows no lesions. There is residual scarring at the site of the nodule in the inferior left chest wall. It looks about the same. There appears to be no progression of the chest wall disease. There is no axillary adenopathy, Abdomen - Soft. Liver and spleen are not enlarged. There is no abdominal mass or ascites noted and there is no inguinal adenopathy, Extremities - Mild lower extremity edema, Neurologic - No focal neurologic deficits noted. Lab/Imaging: CBC shows hemoglobin 9.6 g, white blood cell 4000, and platelet count 211. Chem profile is unremarkable. Impression: 1. 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 She also completed 5 years of adjuvant hormonal therapy with Femara. 2. In 2016 she was found to have grade 2 invasive ductal carcinoma of the right breast, ER positive/KS negative and HER-2/hannah negative. 3. She underwent ultrasound-guided needle biopsy on 11/09/2016 followed by right simple mastectomy/low axillary dissection on 11/25/2016. 4. She was found to have stage IV disease (T2, pN2a, M1), with PET/CT showing multiple sites of bone involvement in the spine and pelvis. 5. On 01/05/2017 she began treatment with fulvestrant in combination with palbociclib. She also started monthly denosumab injections for the metastatic bone involvement. She completed 4 cycles of palbociclib. Her restaging PET/CT on 04/23/2017 showed mixed response with regard to the metastatic bone involvement, but unfortunately there was additional progression with new hepatic metastatic disease and new metastatic involvement in the left chest wall. 6. On 05/09/2017 she began a trial of palliative chemotherapy with Halaven on a standard day 1/day 8 schedule every 21 days. Restaging PET/CT on 11/19/2017 did show some improvement in the osseous and hepatic metastatic disease with no obvious disease progression. She then continued treatment with Halaven, which she tolerated well with growth factor support. 7. As of 03/08/2018 she began her 14th cycle of treatment. Her restaging PET/CT on 04/01/2018 showed evidence of significant disease progression including the left chest wall and liver as well as extensive metastatic bone involvement. 8. She began treatment with TCH chemotherapy on 05/15/2018. She had tolerated it well following a 20% reduction in the chemotherapy dosages. As of 08/28/2018 she completed her 6th cycle. By clinical evaluation she had a good response. 9. During that time, she was evaluated with a next generation sequencing study, which did confirm the presence of a BRCA2 mutation, presumed to be somatic. In the setting of a good response to [place] based chemotherapy, she was then transitioned to maintenance therapy with olaparib 300 mg twice daily beginning in October 2018. During follow-up she has been tolerating the olaparib with no significant adverse effects. She has had gradual improvement in her performance status after stopping the chemotherapy. Overall she continues to do pretty well clinically. She is mildly anemic, which I assume is treatment related. Thus far there has been no evidemce of progression of the breast cancer. Plan: She will continue her maintenance therapy with olaparib 300 mg twice daily. She will be given denosumab 120 mg by subcutaneous injection for the metastatic bone involvement. She returns in 1 month. Signed By: Ming Sainz M.D. <<Signature on File>>
[2019-06-08 06:06] LABS: CA 27.29 146 U/mL (<38)
== END 2019-06-28 23:59 | disposition home or self-care (01) ==
LOC: ONCMED 07:00
PROVIDERS: Visit Provider Internal Medicine Medical Oncology
DX: C79.51 Secondary malignant neoplasm of bone (principal); C50.411 Malignant neoplasm of upper-outer quadrant of right female breast; C78.7 Secondary malignant neoplasm of liver and intrahepatic bile duct; C77.3 Secondary and unspecified malignant neoplasm of axilla and upper limb lymph nodes; Z17.0 Estrogen receptor positive status [ER+]; D64.9 Anemia, unspecified; I10 Essential (primary) hypertension; G89.29 Other chronic pain; M81.0 Age-related osteoporosis without current pathological fracture; Z90.12 Acquired absence of left breast and nipple; Z79.899 Other long term (current) drug therapy
CPT/HCPCS: 36591; 80053; 85025; 86300; 96372; 99214; J0897

== ENCOUNTER 2019-07-09 07:01 | Outpatient (RCR) | payer MEDICAID, SELFPAY ==
[2019-07-09 10:38] LABS: Basophils # 0.1 10^3/uL (0.0-0.1); Basophils % 1.3 %; Eosinophils # 0.1 10^3/uL (0.0-0.8); Eosinophils % 1.8 %; Hematocrit 29.4 % (37.0-47.0); Hemoglobin 9.9 g/dL (11.5-15.3); Lymphocytes % 25.3 %; Mean Corpuscular HGB Conc 33.7 g/dL (30.0-36.0); Mean Corpuscular Hemoglobin 40.2 pg (28.0-34.0); Mean Corpuscular Volume 119.5 fL (81-99); Mean Platelet Volume 10.2 fL (7.4-10.4); Monocytes # 0.4 10^3/uL (0.2-0.9); Monocytes % 11.1 %; Neutrophils # 2.4 10^3/uL (1.8-7.7); Neutrophils % 60.2 %; Nucleated Red Blood Cells % 0 %; Platelet Count 225 10^3/cmm (130-400); Red Blood Count 2.46 10^6/uL (4.1-5.3); Red Cell Distribution Width 17.8 % (12.1-15.1)
[2019-07-09 10:59] LABS: Alanine Aminotransferase 10 U/L (0-33); Alkaline Phosphatase 69 IU/L (35-105); Anion Gap 16.1 (5-19); Aspartate Amino Transferase 19 U/L (0-32); Blood Urea Nitrogen 10 mg/dL (8-23); Calcium 9.7 mg/dL (8.5-10.5); Carbon Dioxide 24 mmol/L (22-29); Chloride 106 mmol/L (98-107); Globulin 2.9 g/dL (1.3-4.6); Glomerular Filtration Rate 55.5 mL/min (90-130); Glucose 119 mg/dL (65-115); Osmolality Calculated 291 mOsm/kg (285-295); Potassium 4.1 mmol/L (3.5-5.1); Sodium 142 mmol/L (136-145); Total Bilirubin 0.4 mg/dL (0.15-1.2); Total Protein 6.9 g/dL (6.6-8.7)
--- NOTE | 2019-07-09 16:21 | ONC FU_ITS ---
Dr. Sainz Patient Follow-Up Note Patient: Luiza Salmon Unit #: [id number]: 1950 Dicatated By: Ming Sainz M.D.Date of Visit:July 09, 2019 Onc Med Follow-up/Prog Note Chief Complaint: Breast cancer. History of Present Illness: This is a 68 year-old woman with grade 2 infiltrating ductal carcinoma of the right breast, ER positive/KS negataive and HER-23/hannah negative, stage IV (T2, pN2a, M1), metastatic to bone. She has a history of inflammatory carcinoma of the left breast, stage IIIB, ER positive/KS negative and HER-2/hannah positive. It was locally advanced at initial presentation in July 2008. Biopsy showed multifocal grade 3/3 invasive ductal carcinoma with extensive lymphatic invasion within fat and skin. The tumor was ER positive at 100% and KS negative at less than 5%. It was positive for overexpression of HER-2/hannah (3+ by IHC). She was given neoadjuvant chemotherapy with 6 cycles of TCH, which she completed in November 2008. She underwent left modified radical mastectomy in December 2008. Pathology showed residual infiltrating ductal carcinoma within the breast as well as involvement in 8 of 14 axillary lymph nodes. She was given prophylactic chest wall radiation, which she completed in March 2009 to a total dose of 60.4 Gy. She also received a full year of Herceptin, which she completed in July 2009. She started adjuvant hormonal therapy with Femara as of April 2009. It was stopped after completing 5 years of treatment. She did experience some neuropathy from her chemotherapy, and she had some chronic pain issues both during and following her treatment. In September 2016 she presented with a new lump in her right breast. Diagnostic mammogram/ultrasound 10/26/2016 was BI-RADS category high, highly suggestive of malignancy. The mammogram showed an irregular lobular high density mass in the upper outer quadrant measuring 2.3 x 3.1 cm. The ultrasound showed mixed echogenicity mass with irregular margins measuring 1.4 x 1.4 x 3 cm with an adjacent oval nodule or lymph node measuring 3.4 x 6 mm. Ultrasound guided biopsy on 11/09/2016 showed grade 1 infiltrating ductal carcinoma with prominent mucinous carcinoma component. The breast prognostic profile showed ER positive at 99%, strong intensity, with KS negative at less than 1%. The tumor was negative for overexpression of HER-2/hannah, 2+ by IHC and amplification ratio by FISH of 1.1 with 2.1 HER-2 copies/cell. The Ki-67 was unfavorable at 28%. On 11/25/2016 she underwent attempted axillary sentinel lymph node biopsy/right low axillary dissection and right simple mastectomy. There were palpable lymph nodes in the axilla which were noted to be firm and somewhat matted together. Pathology showed grade 2 invasive ductal carcinoma measuring 4.0 cm in greatest dimension. A smaller nodule tumor in the same quadrant measured 1.5 cm. There was involvement in 4 of 4 axillary lymph nodes with the largest metastatic deposit measuring 2.0 cm. There was extranodal extension identified. Her pathologic staging was pT2, pN2a. She had further evaluation with staging PET/CT on 12/25/2016. It showed multiple sites of FDG avid skeletal metastases which included but were not limited to C2, C7, T2, T8, T11, T12, L5, and S4 vertebral bodies as well as multiple sites in the pelvis. In December 2016 she began treatment with fulvestrant in combination with palbociclib, and she also started monthly denosumab injections for the metastatic bone involvement. Thus far she has tolerated the treatment very well. Restaging PET/CT on 04/23/2017 showed overall mixed response of multifocal osseous metastatic disease, with improvement in some areas and progression in others. Also noted was interval development of multifocal hepatic metastatic disease which included lesions with SUVs up to 7.5, largely in the left hepatic lobe. Also noted was new hypermetabolic subcutaneous soft tissue in the inferior left chest wall, strongly suspicious for metastatic disease. On 05/09/2017 she started a trial of palliative chemotherapy with Halaven on a standard day 1/day 8 schedule every 21 days. Her treatment was complicated by neutropenia, requiring growth factor support. She also did receive a dose reduction beginning with cycle 5. A restaging PET/CT on 11/19/2017 showed widespread osseous metastatic lesions but with mild improvement compared to the previous study from March 2017. Multifocal hepatic lesions also were mildly improved. Uptake in the left chest wall was noted to be stable. There was no mention of uptake in the right chest wall. She continued treatment with Halaven. As of 03/08/2018 she began her 14th cylce. Her day 8 treatment was delayed 1 week due to neutropenia. Her restaging PET/CT on 04/01/2018 showed progression of her left chest wall disease and progression of metastatic disease in the liver. Also noted was irregular uptake throughout the bone marrow consistent with widespread osseous metastatic disease, much more extensive compared to the prior study in October 2017. With those findings, she was scheduled for biopsy of a left iliac bone lesion to try and verify the ER/KS and HER-2/hannah status of her metastatic disease. That biopsy unfortunately was nondiagnostic. However, as her left breast cancer was HER-2/hannah positive, I did recommend that she proceed with a trial of TCH chemotherapy. She returned on 05/15/2018 for cycle 1 of carboplatin/docetaxel chemotherapy in combination with Herceptin. She had no acute toxicity during the administration of the chemotherapy. However, at completion of her treatment, she had become very lethargic, and she was sent to the emergency room for evaluation. A noncontrast head CT showed no acute findings. CT of the abdomen/pelvis showed prominent small bowel loops as well as distended stomach. An NG tube placed in the emergency room had an output of 300 mL of brownish colored gastric contents. She was admitted for overnight observation, and by the following day she was feeling better and she was able to be discharged home. It was thought that she most likely had opiate-induced ileus. She was then able to proceed with cycle 2 of carboplatin/docetaxel/Herceptin on 06/05/2018. It was administered with a 20% reduction in the chemotherapy dosages. The Herceptin was adjusted to the 3-week dosing schedule. She tolerated it well, and she was then able to continue her treatment at 3-week intervals. As of 08/28/2018 she completed her 6th cycle. In the presence of BRCA2 mutation and a good response to sycuan based chemotherapy, she was then transitioned to maintenance therapy with olaparib 300 mg twice daily beginning in October 2018. She also continued the monthly denosumab injections for the metastatic bone involvement. Her other medical illnesses have been limited to hypertension and osteoporosis. She has had some chronic swelling in the lower extremities following chemotherapy. She is a nonsmoker. Surgeries have been limited to left modified radical mastectomy in December 2008 and right mastectomy with low axillary dissection in October 2016. She also had undergone placement of Port-A-Cath venous access device for chemotherapy in 2008. INTERIM HISTORY: She is seen for a followup visit. She has been feeling pretty good generally. She says her energy is just so-so. She is doing light work, though. Her ECOG score is 1. She has good appetite. She has no fever or night sweats. She has had no mouth sores. She has no shortness of breath, cough, or chest pain. She sometimes has acid reflux, but it generally is managed adequately with her medication. She has no other GI or complaints. She does have some pain in her chest wall, but it is also adequately managed with medication. She continues to have numbness/tingling in her fingers and toes. She indicates that she has had some slight bleeding from the sore in her left chest wall. Medications: Calcium 1 Tablet (of 500 mg) Oral b.i.d., Eliquis 1 Tablet (of 5 mg) Oral b.i.d., Ergocalciferol 1 (07776 Units) Capsule Oral q 30 days, Gabapentin 1 Tablet (of 600 mg) Capsule Oral t.i.d., Klor-Con M10 1 (10 meq) Tablet, controlled release Oral b.i.d., Magnesium 1 Tablet (of 400 mg) Oral b.i.d., Morphine Sulfate 1 Tablet (of 30 mg) Oral four times a day PRN, Morphine Sulfate ER 1 Tablet (of 100 mg) Capsule SR 24 HR Oral q 12 hours PRN, Olaparib 2 Tablet (of 150 mg) Oral b.i.d., Protonix 1 (40 mg) Tablet, enteric coated Oral daily, Senokot S 1 Tablet (of 8.6-50 mg) Oral b.i.d. PRN, Vitamin B12 1 Tablet Oral daily Allergies: No Known Allergies. Review of Systems: Constitutional - Her energy level is low, but she is able to do light house work. Her appetite is good and weight is up 4 pounds. No fever, chills, hot flashes, or night sweats. ECOG score is 1, ENMT - No sinus congestion/drainage. No mouth sores. No sore throat or difficulty swallowing, Hematologic/Lymphatic - No abnormal bruising or bleeding, Respiratory - No shortness of breath. No cough. No pleuritic pain or hemoptysis, Cardiovascular - No angina pain. No palpitations, Gastrointestinal - No nausea or vomiting. Her heartburn is well controlled with Protonix. No diarrhea or constipation. No blood in the stool or black stools, Genitourinary (F) - No dysuria or hematuria. No urinary frequency. No urgency or incontinence, Musculoskeletal - She has some chest wall pain, but this is well managed with her pain medication, Integumentary - No skin complications, Neurologic - No headache or dizziness. She has numbness in her fingers and toes, Psychiatric - No anxiety or depression. No insomnia. Vital Signs: Performed on July 09, 2019 11:12 Height - 68.00 in Weight - 166.8 lbs (HIGH) BSA - 1.89 sq.m BMI - 25.36 Temperature - 97.5 F (LOW) Pulse - 75 /min Respiration - 22 /min BP - 112/69 mm(hg) O2 Sat - 90 % (LOW) Pain - 0 Physical Examination: Constitutional - She looks pretty good generally, Eyes - Sclerae nonicteric. Conjunctivae clear, ENMT - There are no lesions noted in the oral cavity, Hematologic/Lymphatic - No cervical or clavicular adenopathy, Respiratory - Lungs are clear, Cardiovascular - Heart rhythm is regular. There is a II/ systolic murmur. There is no gallop or rub noted, Breasts - The right chest wall shows no lesions. There is a blister-like lesion at the site of the recurrence in the inferior left chest wall. It measures 0.6 x 0.9 cm. There is a punctate opening in its inferior aspect which is draining serosanguinous fluid. There are no other. There is no axillary adenopathy, Abdomen - Soft. Liver and spleen are not enlarged. There is no abdominal mass or ascites noted and there is no inguinal adenopathy, Extremities - Mild lower extremity edema, Neurologic - No focal neurologic deficits noted. Lab/Imaging: Test performed on July 09, 2019 10:00 Sodium 142 mmol/L Potassium 4.1 mmol/L Chloride 106 mmol/L CO2 24 mmol/L Anion Gap 16.1 BUN 10 mg/dL Creatinine 1.0 mg/dL Cr Clearance (Est) 66.10 mL/min eGFR 55.5 mL/min Glucose 119 mg/dL Calcium 9.7 mg/dL Protein, Total 6.9 g/dL Albumin 4.0 g/dL Globulin 2.9 g/dL Bilirubin, Total 0.4 mg/dL ALT (SGPT) 10 U/L AST (SGOT) 19 U/L Alkaline Phosphatase 69 IU/L WBC 4.0 10 3/uL RBC 2.46 10 6/uL HGB 9.9 g/dL HCT 29.4 % MCV 119.5 fL MCH 40.2 pg MCHC 33.7 g/dL RDW 17.8 % Platelet Count 225 10 3/cmm MPV 10.2 fL Neutrophils 2.4 10 3/uL Lymphocytes 1.0 10 3/uL Monocytes 0.4 10 3/uL Eosinophils 0.1 10 3/uL Basophils 0.1 10 3/uL Neutrophil % 60.2 % Lymphocyte % 25.3 % Monocyte % 11.1 % Eosinophil % 1.8 % Basophils % 1.3 % Test performed on Jun 07, 2019 09:18 CA 27.29 146 Units/mL Impression: 1. 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 She also completed 5 years of adjuvant hormonal therapy with Femara. 2. In 2016 she was found to have grade 2 invasive ductal carcinoma of the right breast, ER positive/KS negative and HER-2/hannah negative. 3. She underwent ultrasound-guided needle biopsy on 11/09/2016 followed by right simple mastectomy/low axillary dissection on 11/25/2016. 4. She was found to have stage IV disease (T2, pN2a, M1), with PET/CT showing multiple sites of bone involvement in the spine and pelvis. 5. On 01/05/2017 she began treatment with fulvestrant in combination with palbociclib. She also started monthly denosumab injections for the metastatic bone involvement. She completed 4 cycles of palbociclib. Her restaging PET/CT on 04/23/2017 showed mixed response with regard to the metastatic bone involvement, but unfortunately there was additional progression with new hepatic metastatic disease and new metastatic involvement in the left chest wall. 6. On 05/09/2017 she began a trial of palliative chemotherapy with Halaven on a standard day 1/day 8 schedule every 21 days. Restaging PET/CT on 11/19/2017 did show some improvement in the osseous and hepatic metastatic disease with no obvious disease progression. She then continued treatment with Halaven, which she tolerated well with growth factor support. 7. As of 03/08/2018 she began her 14th cycle of treatment. Her restaging PET/CT on 04/01/2018 showed evidence of significant disease progression including the left chest wall and liver as well as extensive metastatic bone involvement. 8. She began treatment with TCH chemotherapy on 05/15/2018. She had tolerated it well following a 20% reduction in the chemotherapy dosages. As of 08/28/2018 she completed her 6th cycle. By clinical evaluation she had a good response. 9. During that time, she was evaluated with a next generation sequencing study, which did confirm the presence of a BRCA2 mutation, presumed to be somatic. In the setting of a good response to sycuan based chemotherapy, she was then transitioned to maintenance therapy with olaparib 300 mg twice daily beginning in October 2018. During follow-up she had gradual improvement in her performance status after stopping the chemotherapy. She has been able to continue the olaparib at the same dosage. There has been a steady decline in her CA 27.29 level. She has been mildly anemic. I have assumed that it is treatment related. She has otherwise been tolerating the olaparib well. Recently she has developed some slight drainage from a blister-like lesion in her left chest wall. I am not exactly certain of the underlying cause for that lesion. There is been no other indication of disease progression, and overall she has been doing well clinically. Plan: She will continue maintenance therapy with olaparib 300 mg twice daily. She will be given denosumab 120 mg by subcutaneous injection for the metastatic bone involvement. She will be scheduled for a follow-up visit in 1 month. Signed By: Ming Sainz M.D. <<Signature on File>>
[2019-07-10 06:12] LABS: CA 27.29 152 U/mL (<38)
== END 2019-07-29 23:59 | disposition home or self-care (01) ==
LOC: ONCMED 07:01
PROVIDERS: Visit Provider Internal Medicine Medical Oncology
DX: C50.411 Malignant neoplasm of upper-outer quadrant of right female breast (principal); Z17.0 Estrogen receptor positive status [ER+]; C79.51 Secondary malignant neoplasm of bone; C78.7 Secondary malignant neoplasm of liver and intrahepatic bile duct; G89.29 Other chronic pain; I10 Essential (primary) hypertension; M81.0 Age-related osteoporosis without current pathological fracture; Z92.21 Personal history of antineoplastic chemotherapy; Z92.3 Personal history of irradiation; Z79.818 Long term (current) use of other agents affecting estrogen receptors and estrogen levels; Z79.899 Other long term (current) drug therapy
CPT/HCPCS: 36591; 80053; 85025; 86300; 96372; 99214

== ENCOUNTER 2019-08-09 06:59 | Outpatient (RCR) | payer MEDICAID, SELFPAY ==
[2019-08-09 09:35] LABS: Basophils # 0.1 10^3/uL (0.0-0.1); Basophils % 1.2 %; Eosinophils # 0.1 10^3/uL (0.0-0.8); Eosinophils % 1.4 %; Hematocrit 30.4 % (37.0-47.0); Hemoglobin 10.4 g/dL (11.5-15.3); Lymphocytes % 24.1 %; Mean Corpuscular HGB Conc 34.2 g/dL (30.0-36.0); Mean Corpuscular Hemoglobin 39.2 pg (28.0-34.0); Mean Corpuscular Volume 114.7 fL (81-99); Mean Platelet Volume 9.6 fL (7.4-10.4); Monocytes # 0.4 10^3/uL (0.2-0.9); Monocytes % 10.3 %; Neutrophils # 2.7 10^3/uL (1.8-7.7); Neutrophils % 62.5 %; Nucleated Red Blood Cells % 0.7 %; Platelet Count 213 10^3/cmm (130-400); Red Blood Count 2.65 10^6/uL (4.1-5.3); Red Cell Distribution Width 17.3 % (12.1-15.1); White Blood Count 4.3 10^3/uL (4.0-10.0)
[2019-08-09 09:49] LABS: Alanine Aminotransferase 12 U/L (0-33); Albumin Level 4.4 g/dL (3.5-5.2); Alkaline Phosphatase 78 IU/L (35-105); Aspartate Amino Transferase 24 U/L (0-32); Blood Urea Nitrogen 17 mg/dL (8-23); Calcium 9.9 mg/dL (8.5-10.5); Carbon Dioxide 25 mmol/L (22-29); Chloride 99 mmol/L (98-107); Globulin 2.8 g/dL (1.3-4.6); Glomerular Filtration Rate 49.7 mL/min (90-130); Glucose 114 mg/dL (65-115); Osmolality Calculated 285 mOsm/kg (285-295); Sodium 139 mmol/L (136-145); Total Bilirubin 0.5 mg/dL (0.15-1.2); Total Protein 7.2 g/dL (6.6-8.7)
[2019-08-09] MEDS: denosumab 120 mg SDV SUBCUT (11:00)
[2019-08-09 12:22] LABS: Magnesium 1.4 mg/dL (1.7-2.3)
--- NOTE | 2019-08-09 13:26 | ONC FU_ITS ---
[facility] Patient Note Patient: Luiza Salmon Unit #: [id number]: 1950 Dictated By: Italia HigginsDate of Visit: Aug 09, 2019 Onc MED Follow-Up/Prog Note Chief Complaint: Breast cancer. History of Present Illness: Ms Salmon is a 68 year-old woman with grade 2 infiltrating ductal carcinoma of the right breast, ER positive/LA negative and HER-23/hannah negative, stage IV (T2, pN2a, M1), metastatic to bone. She has a history of inflammatory carcinoma of the left breast, stage IIIB, ER positive/LA negative and HER-2/hannah positive. It was locally advanced at initial presentation in July 2008. Biopsy showed multifocal grade 3/3 invasive ductal carcinoma with extensive lymphatic invasion within fat and skin. The tumor was ER positive at 100% and LA negative at less than 5%. It was positive for overexpression of HER-2/hannah (3+ by IHC). She was given neoadjuvant chemotherapy with 6 cycles of TCH, which she completed in November 2008. She underwent left modified radical mastectomy in December 2008. Pathology showed residual infiltrating ductal carcinoma within the breast as well as involvement in 8 of 14 axillary lymph nodes. She was given prophylactic chest wall radiation, which she completed in March 2009 to a total dose of 60.4 Gy. She also received a full year of Herceptin, which she completed in July 2009. She started adjuvant hormonal therapy with Femara as of April 2009. It was stopped after completing 5 years of treatment. She did experience some neuropathy from her chemotherapy, and she had some chronic pain issues both during and following her treatment. In September 2016 she presented with a new lump in her right breast. Diagnostic mammogram/ultrasound 10/26/2016 was BI-RADS category high, highly suggestive of malignancy. The mammogram showed an irregular lobular high density mass in the upper outer quadrant measuring 2.3 x 3.1 cm. The ultrasound showed mixed echogenicity mass with irregular margins measuring 1.4 x 1.4 x 3 cm with an adjacent oval nodule or lymph node measuring 3.4 x 6 mm. Ultrasound guided biopsy on 11/09/2016 showed grade 1 infiltrating ductal carcinoma with prominent mucinous carcinoma component. The breast prognostic profile showed ER positive at 99%, strong intensity, with LA negative at less than 1%. The tumor was negative for overexpression of HER-2/hannah, 2+ by IHC and amplification ratio by FISH of 1.1 with 2.1 HER-2 copies/cell. The Ki-67 was unfavorable at 28%. On 11/25/2016 she underwent attempted axillary sentinel lymph node biopsy/right low axillary dissection and right simple mastectomy. There were palpable lymph nodes in the axilla which were noted to be firm and somewhat matted together. Pathology showed grade 2 invasive ductal carcinoma measuring 4.0 cm in greatest dimension. A smaller nodule tumor in the same quadrant measured 1.5 cm. There was involvement in 4 of 4 axillary lymph nodes with the largest metastatic deposit measuring 2.0 cm. There was extranodal extension identified. Her pathologic staging was pT2, pN2a. She had further evaluation with staging PET/CT on 12/25/2016. It showed multiple sites of FDG avid skeletal metastases which included but were not limited to C2, C7, T2, T8, T11, T12, L5, and S4 vertebral bodies as well as multiple sites in the pelvis. In December 2016 she began treatment with fulvestrant in combination with palbociclib, and she also started monthly denosumab injections for the metastatic bone involvement. Thus far she has tolerated the treatment very well. Restaging PET/CT on 04/23/2017 showed overall mixed response of multifocal osseous metastatic disease, with improvement in some areas and progression in others. Also noted was interval development of multifocal hepatic metastatic disease which included lesions with SUVs up to 7.5, largely in the left hepatic lobe. Also noted was new hypermetabolic subcutaneous soft tissue in the inferior left chest wall, strongly suspicious for metastatic disease. On 05/09/2017 she started a trial of palliative chemotherapy with [place] on a standard day 1/day 8 schedule every 21 days. Her treatment was complicated by neutropenia, requiring growth factor support. She also did receive a dose reduction beginning with cycle 5. A restaging PET/CT on 11/19/2017 showed widespread osseous metastatic lesions but with mild improvement compared to the previous study from March 2017. Multifocal hepatic lesions also were mildly improved. Uptake in the left chest wall was noted to be stable. There was no mention of uptake in the right chest wall. She continued treatment with Halaven. As of 03/08/2018 she began her 14th cylce. Her day 8 treatment was delayed 1 week due to neutropenia. Her restaging PET/CT on 04/01/2018 showed progression of her left chest wall disease and progression of metastatic disease in the liver. Also noted was irregular uptake throughout the bone marrow consistent with widespread osseous metastatic disease, much more extensive compared to the prior study in October 2017. With those findings, she was scheduled for biopsy of a left iliac bone lesion to try and verify the ER/LA and HER-2/hannah status of her metastatic disease. That biopsy unfortunately was nondiagnostic. However, as her left breast cancer was HER-2/hannah positive, Dr Sainz did recommend that she proceed with a trial of H chemotherapy. She returned on 05/15/2018 for cycle 1 of carboplatin/docetaxel chemotherapy in combination with Herceptin. She had no acute toxicity during the administration of the chemotherapy. However, at completion of her treatment, she had become very lethargic, and she was sent to the emergency room for evaluation. A noncontrast head CT showed no acute findings. CT of the abdomen/pelvis showed prominent small bowel loops as well as distended stomach. An NG tube placed in the emergency room had an output of 300 mL of brownish colored gastric contents. She was admitted for overnight observation, and by the following day she was feeling better and she was able to be discharged home. It was thought that she most likely had opiate-induced ileus. She was then able to proceed with cycle 2 of carboplatin/docetaxel/Herceptin on 06/05/2018. It was administered with a 20% reduction in the chemotherapy dosages. The Herceptin was adjusted to the 3-week dosing schedule. She tolerated it well, and she was then able to continue her treatment at 3-week intervals. As of 08/28/2018 she completed her 6th cycle. In the presence of BRCA2 mutation and a good response to [place] based chemotherapy, she was then transitioned to maintenance therapy with olaparib 300 mg twice daily beginning in October 2018. She also continued the monthly denosumab injections for the metastatic bone involvement. Her other medical illnesses have been limited to hypertension and osteoporosis. She has had some chronic swelling in the lower extremities following chemotherapy. She is a nonsmoker. Surgeries have been limited to left modified radical mastectomy in December 2008 and right mastectomy with low axillary dissection in October 2016. She also had undergone placement of Port-A-Cath venous access device for chemotherapy in 2008. INTERIM HISTORY: Ms. Salmon is here today for follow-up. She continues to do well overall. She states that she is still staying active around the house. Her appetite is good. She has developed some pain in the right rib area which she points around the eighth rib. There is no known disease there based on previous bone scans. She states the pain comes and goes. It does go away without taking additional pain medication. She states it just comes at random she cannot figure out any trigger. She states is not bad right now . She states she is been having some leg cramps at night and has to get up and walk around after she is laid down. She denies any shortness of breath orthopnea. She has had no fever or chills. She has had no signs of infection for at least the last 72 hours. She states overall she feels she is doing well. She denies nausea or vomiting. She states her bowels are normal for her sometimes a little loose. She denies any lower extremity edema, chest pain orthopnea. She continues to have numbness/tingling in her fingers and toes-but it is stable. She indicates that she has had some slight bleeding from the sore in her left chest wall. It is better than her last visit per her report. She states she feels she is doing good overall. Her ECOG is 1. Past Medical History: Cancer (BREAST) CHRONIC PAIN Hypertension Osteoporosis Medical illnesses include breast cancer, hypertension, osteoporosis, and chronic pain. Past Surgical History: PORT A CATH Flu vaccine in 2018 - Given in left deltoid/lc Flu Vaccine in 2018 - Given in right deltoid./lc Left thigh drain in 2017 Fluvax in 2016 Right axillary dissection in 2016 Right mastectomy in 2016 Right breast biopsy in 2016 Flu vaccine in 2014 Mastectomy in 2008 - LEFT MODIFIED RADICAL Surgies include left modified radical mastectomy in December 2008 and placement of portacath venous access device. Allergies: No Known Allergies. Medications: Calcium 1 Tablet (of 500 mg) Oral b.i.d. Eliquis 1 Tablet (of 5 mg) Oral b.i.d. Ergocalciferol 1 (63690 Units) Capsule Oral q 30 days Gabapentin 1 Tablet (of 600 mg) Capsule Oral t.i.d. Klor-Con M10 1 (10 meq) Tablet, controlled release Oral b.i.d. Magnesium 1 Tablet (of 400 mg) Oral b.i.d. Morphine Sulfate 1 Tablet (of 30 mg) Oral four times a day PRN Morphine Sulfate ER 1 Tablet (of 100 mg) Capsule SR 24 HR Oral q 12 hours PRN Olaparib 2 Tablet (of 150 mg) Oral b.i.d. Protonix 1 (40 mg) Tablet, enteric coated Oral daily Senokot S 1 Tablet (of 8.6-50 mg) Oral b.i.d. PRN Vitamin B12 1 Tablet Oral daily Family History: Family history significant for a brother having of lung cancer and for sister having been treated for cervical cancer. Her mother has diabetes. Social History: Ms. Salmon is and she is a disabled. Ms. Salmon has never smoked. She has no history of drinking. Ms. Salmon reports the following support systems: lives in own house, supportive family/friends willing to assist with needs, and adequate transportation available for expected visits. Her diet consists of regular meals. She indicates her activity level as: daily activities. She does not smoke or drink alcohol. She has denied illicit drug use. Review Of Symptoms: Constitutional Denies fevers, chills, night sweats, excessive fatigue or weight loss. Allergic/Immunologic No reactions. Eyes Denies significant visual changes. No diplopia. No amaurosis. ENMT Denies changes in hearing, sore throat, mouth sores, difficulty or changes in swallowing ability, and/or sinus drainage. Endocrine No diabetes, thyroid disease or hormone replacement. Denies hot flashes or night sweats. Hematologic/Lymphatic Denies easy bruising or bleeding. The patient denies any tender or palpable lymph nodes. Breasts Small lesion on left mastectomy side, drains sometimes no worse than last visit, sometimes it looks like it is draining pus . Respiratory Denies dyspnea on exertion, chest pain, cough or hemoptysis. Denies orthopnea. Cardiovascular Denies anginal chest pain, palpitations or orthopnea. Gastrointestinal Denies nausea, vomiting, diarrhea, GI bleeding, or constipation. Denies change in bowel habits and/or stool color, no heartburn or early satiety. Genitourinary (F) No hematuria, hesitancy, incontinence, vaginal bleeding, discharge or other problems with urination. Musculoskeletal Denies joint pain, swelling or redness. No decreased range of motion. Chronic lower back and leg pain-stable. Controlled with current pain treatment regimen. Intermittent right rib area pain-she points to the 8th rib area when showing where the pain is. Integumentary Denies chronic rashes, inflammation, ulcerations or skin changes. Neurologic Denies headache, blurred vision, and no areas of focal weakness or numbness. Normal gait. No sensory problems. Psychiatric Denies insomnia, depression, micheal or mood swings. Vital Signs: Performed on Aug 09, 2019 10:21 Height - 68.00 in Weight - 163.2 lbs (LOW) BSA - 1.87 sq.m BMI - 24.81 Temperature - 96.4 F (LOW) Pulse - 87 /min Respiration - 17 /min BP - 108/66 mm(hg) O2 Sat - 90 % (LOW) Pain - 2,1 - No physically strenuous activity, but ambulatory and able to carry out light or sedentary work (e.g. office work, light house work). (ECOG) Physical Examination: Constitutional Alert, oriented, no acute distress. Skin pink/pale, warm and dry. Head Normocephalic; atraumatic. Eyes Conjunctivae and sclerae are clear and without icterus. Pupils are reactive and equal. ENMT Sinuses are nontender. No oral exudates, ulcers, masses, thrush or mucositis. Oropharynx clear. Tongue normal. Poor dentition noted. Neck Supple without masses or thyromegaly. No jugular venous distension. Hematologic/Lymphatic No petechiae or purpura. No tender or palpable lymph nodes in the cervical or supraclavicular area. Respiratory Lungs are clear to auscultation without rhonchi or wheezing. Cardiovascular Regular rate and rhythm of heart without murmurs,clicks, gallops or rubs. Chest bilateral mastectomies. Left chest wall is noted to have to small lesions. 1 is midline and measures 0.5 cm and is scabbed. The other lesion is in the upper quad area and is white in color with no active drainage-it is unchanged from previous exams. Right chest wall venous access device insertion site is unremarkable. Breasts see above Abdomen Non-tender, non-distended, no masses, ascites. Good bowel sounds noted in all quads. No guarding or rebound tenderness. No pulsatile masses. Back/Spine Non-tender to palpation. Extremities No visible deformities, no cyanosis, clubbing or edema. Musculoskeletal No tenderness or swelling. No weakness-normal ROM. Integumentary No rashes or lesions. Neurologic No sensory or motor deficits, normal cerebellar function. Normal gait. Psychiatric Alert and oriented times three. Coherent speech. Verbalizes understanding of our discussions today. Laboratory:Test performed on Aug 09, 2019 09:12 Magnesium 1.4 mg/dL Sodium 139 mmol/L Potassium 4.0 mmol/L Chloride 99 mmol/L CO2 25 mmol/L Anion Gap 19.0 BUN 17 mg/dL Creatinine 1.1 mg/dL Cr Clearance (Est) 58.7900 mL/min eGFR 49.7 mL/min Glucose 114 mg/dL Calcium 9.9 mg/dL Protein, Total 7.2 g/dL Albumin 4.4 g/dL Globulin 2.8 g/dL Bilirubin, Total 0.5 mg/dL ALT (SGPT) 12 U/L AST (SGOT) 24 U/L Alkaline Phosphatase 78 IU/L WBC 4.3 10 3/uL RBC 2.65 10 6/uL HGB 10.4 g/dL HCT 30.4 % MCV 114.7 fL MCH 39.2 pg MCHC 34.2 g/dL RDW 17.3 % Platelet Count 213 10 3/cmm MPV 9.6 fL Neutrophils 2.7 10 3/uL Lymphocytes 1.0 10 3/uL Monocytes 0.4 10 3/uL Eosinophils 0.1 10 3/uL Basophils 0.1 10 3/uL Neutrophil % 62.5 % Lymphocyte % 24.1 % Monocyte % 10.3 % Eosinophil % 1.4 % Basophils % 1.2 % NRBC % 0.7 % Test performed on Jun 07, 2019 09:18 CA 27.29 146 Units/mL Test performed on Apr 05, 2019 09:22 TSH 1.65 uIU/mL Vitamin B12 476 pg/mL Impression: 1. 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 She also completed 5 years of adjuvant hormonal therapy with Femara. 2. In 2016 she was found to have grade 2 invasive ductal carcinoma of the right breast, ER positive/LA negative and HER-2/hannah negative. 3. She underwent ultrasound-guided needle biopsy on 11/09/2016 followed by right simple mastectomy/low axillary dissection on 11/25/2016. 4. She was found to have stage IV disease (T2, pN2a, M1), with PET/CT showing multiple sites of bone involvement in the spine and pelvis. 5. On 01/05/2017 she began treatment with fulvestrant in combination with palbociclib. She also started monthly denosumab injections for the metastatic bone involvement. She completed 4 cycles of palbociclib. Her restaging PET/CT on 04/23/2017 showed mixed response with regard to the metastatic bone involvement, but unfortunately there was additional progression with new hepatic metastatic disease and new metastatic involvement in the left chest wall. 6. On 05/09/2017 she began a trial of palliative chemotherapy with Halaven on a standard day 1/day 8 schedule every 21 days. Restaging PET/CT on 11/19/2017 did show some improvement in the osseous and hepatic metastatic disease with no obvious disease progression. She then continued treatment with Hal[place], which she tolerated well with growth factor support. 7. As of 03/08/2018 she began her 14th cycle of treatment. Her restaging PET/CT on 04/01/2018 showed evidence of significant disease progression including the left chest wall and liver as well as extensive metastatic bone involvement. 8. She began treatment with TCH chemotherapy on 05/15/2018. She had tolerated it well following a 20% reduction in the chemotherapy dosages. As of 08/28/2018 she completed her 6th cycle. By clinical evaluation she had a good response. 9. During that time, she was evaluated with a next generation sequencing study, which did confirm the presence of a BRCA2 mutation, presumed to be somatic. In the setting of a good response to [place] based chemotherapy, she was then transitioned to maintenance therapy with olaparib 300 mg twice daily beginning in October 2018. During follow-up she had gradual improvement in her performance status after stopping the chemotherapy. She has been able to continue the olaparib at the same dosage. There has been a steady decline in her CA 27.29 level. She has been mildly anemic. I have assumed that it is treatment related. She has otherwise been tolerating the olaparib well. Recently she has developed some slight drainage from a blister-like lesion in her left chest wall. The underlying cause for that lesion is unknown. There is been no other indication of disease progression, and overall she has been doing well clinically. Plan: 1. continue maintenance therapy with olaparib 300 mg twice daily. 2. Continue denosumab 120 mg by subcutaneous injection for the metastatic bone involvement-she is due today. 3. Magnesium added to blood in lab for assessment of leg cramps. Will call her the results when we call the CA 27.29 results. 4. lorazepam 0.5 mg at hs prn leg cramps. 5. Keflex 500 mg TID for left chest wall lesion/drainage. She was instructed to start the antibiotic if she has purluent drainage from the chest wall lesion. 6. Monitor rib pain and call if worsening or more persisten before folloup in 1 month. 7. Today's labs were reviewed in detail and discussed with Luiza and a copy was given to her. WBC 4.3, HGB 10.4, platelets 213,000, ANC 2700. Creatinine is 1.1 8. We will plan to see her back in 1 month with CBC, CMP, CA 27.29 and she will be due for Xgeva. 9. Luiza was instructed to call us in the interim if questions or problems arise or if her rib pain is more persistent or worsening. Signed By: Italia Higgins-, AOP Ming Sainz MD <<Signature on File>>
[2019-08-14 01:33] LABS: CA 27.29 281 U/mL (<38)
== END 2019-08-28 23:59 | disposition home or self-care (01) ==
LOC: ONCMED 06:59
PROVIDERS: Internal Medicine Medical Oncology; Visit Provider Nurse Practitioner
DX: C50.411 Malignant neoplasm of upper-outer quadrant of right female breast (principal); Z17.0 Estrogen receptor positive status [ER+]; C79.51 Secondary malignant neoplasm of bone; C78.7 Secondary malignant neoplasm of liver and intrahepatic bile duct; D70.1 Agranulocytosis secondary to cancer chemotherapy; G89.29 Other chronic pain; G89.3 Neoplasm related pain (acute) (chronic); I10 Essential (primary) hypertension; M81.0 Age-related osteoporosis without current pathological fracture; R25.2 Cramp and spasm; Z92.3 Personal history of irradiation
CPT/HCPCS: 36591; 80053; 83735; 85025; 86300; 96372; 99214; J0897

== ENCOUNTER 2019-09-18 06:47 | Outpatient (RCR) | payer MEDICAID, SELFPAY ==
[2019-09-10 08:51] LABS: Basophils # 0.1 10^3/uL (0.0-0.1); Basophils % 1.1 %; Eosinophils % 0.6 %; Hematocrit 25.3 % (37.0-47.0); Hemoglobin 8.6 g/dL (11.5-15.3); Lymphocytes # 0.8 10^3/uL (0.8-4.8); Lymphocytes % 16.1 %; Mean Corpuscular Hemoglobin 39.1 pg (28.0-34.0); Mean Platelet Volume 10.3 fL (7.4-10.4); Monocytes # 0.5 10^3/uL (0.2-0.9); Monocytes % 10.1 %; Neutrophils # 3.71 10^3/uL (1.8-7.7); Nucleated Red Blood Cells % 0.4 %; Platelet Count 202 10^3/cmm (130-400); Red Cell Distribution Width 17.9 % (12.1-15.1); White Blood Count 5.2 10^3/uL (4.0-10.0)
[2019-09-10 09:28] LABS: Alanine Aminotransferase 15 U/L (0-33); Albumin Level 3.9 g/dL (3.5-5.2); Alkaline Phosphatase 95 IU/L (35-105); Anion Gap 16.8 (5-19); Aspartate Amino Transferase 23 U/L (0-32); Blood Urea Nitrogen 13 mg/dL (8-23); Calcium 9.4 mg/dL (8.5-10.5); Carbon Dioxide 23 mmol/L (22-29); Chloride 99 mmol/L (98-107); Ferritin 867 ng/mL (15-150); Globulin 3.5 g/dL (1.3-4.6); Glomerular Filtration Rate 49.7 mL/min (90-130); Glucose 142 mg/dL (65-115); Iron 28 ug/dL (37-145); Osmolality Calculated 279 mOsm/kg (285-295); Percent Saturation 14.4 % (20-50); Potassium 3.8 mmol/L (3.5-5.1); Sodium 135 mmol/L (136-145); Total Bilirubin 0.6 mg/dL (0.15-1.2); Total Iron Binding Capacity 194 mcg/dl; Total Protein 7.4 g/dL (6.6-8.7); Unsaturated Iron Binding 166 ug/dL (112-347)
[2019-09-10 09:32] LABS: Folate Level 13.2 ng/mL (4.8-37.3)
[2019-09-10 10:12] LABS: Vitamin B12 > 2000 pg/mL (232-1245)
[2019-09-10] MEDS: denosumab 120 mg SDV SUBCUT (10:55)
[2019-09-11 07:25] LABS: CA 27.29 847 U/mL (<38)
--- NOTE | 2019-09-14 09:59 | ONC FU_ITS ---
Dr. Sainz Patient Follow-Up Note Patient: Luiza Salmon Unit #: [id number]: 1950 Dicatated By: Ming Sainz M.D.Date of Visit:Sep 10, 2019 Onc Med Follow-up/Prog Note Chief Complaint: Breast cancer. History of Present Illness: This is a 68 year-old woman with grade 2 infiltrating ductal carcinoma of the right breast, ER positive/MN negataive and HER-23/hannah negative, stage IV (T2, pN2a, M1), metastatic to bone. She has a history of inflammatory carcinoma of the left breast, stage IIIB, ER positive/MN negative and HER-2/hannah positive. It was locally advanced at initial presentation in July 2008. Biopsy showed multifocal grade 3/3 invasive ductal carcinoma with extensive lymphatic invasion within fat and skin. The tumor was ER positive at 100% and MN negative at less than 5%. It was positive for overexpression of HER-2/hannah (3+ by IHC). She was given neoadjuvant chemotherapy with 6 cycles of TCH, which she completed in November 2008. She underwent left modified radical mastectomy in December 2008. Pathology showed residual infiltrating ductal carcinoma within the breast as well as involvement in 8 of 14 axillary lymph nodes. She was given prophylactic chest wall radiation, which she completed in March 2009 to a total dose of 60.4 Gy. She also received a full year of Herceptin, which she completed in July 2009. She started adjuvant hormonal therapy with Femara as of April 2009. It was stopped after completing 5 years of treatment. She did experience some neuropathy from her chemotherapy, and she had some chronic pain issues both during and following her treatment. In September 2016 she presented with a new lump in her right breast. Diagnostic mammogram/ultrasound 10/26/2016 was BI-RADS category high, highly suggestive of malignancy. The mammogram showed an irregular lobular high density mass in the upper outer quadrant measuring 2.3 x 3.1 cm. The ultrasound showed mixed echogenicity mass with irregular margins measuring 1.4 x 1.4 x 3 cm with an adjacent oval nodule or lymph node measuring 3.4 x 6 mm. Ultrasound guided biopsy on 11/09/2016 showed grade 1 infiltrating ductal carcinoma with prominent mucinous carcinoma component. The breast prognostic profile showed ER positive at 99%, strong intensity, with MN negative at less than 1%. The tumor was negative for overexpression of HER-2/hannah, 2+ by IHC and amplification ratio by FISH of 1.1 with 2.1 HER-2 copies/cell. The Ki-67 was unfavorable at 28%. On 11/25/2016 she underwent attempted axillary sentinel lymph node biopsy/right low axillary dissection and right simple mastectomy. There were palpable lymph nodes in the axilla which were noted to be firm and somewhat matted together. Pathology showed grade 2 invasive ductal carcinoma measuring 4.0 cm in greatest dimension. A smaller nodule tumor in the same quadrant measured 1.5 cm. There was involvement in 4 of 4 axillary lymph nodes with the largest metastatic deposit measuring 2.0 cm. There was extranodal extension identified. Her pathologic staging was pT2, pN2a. She had further evaluation with staging PET/CT on 12/25/2016. It showed multiple sites of FDG avid skeletal metastases which included but were not limited to C2, C7, T2, T8, T11, T12, L5, and S4 vertebral bodies as well as multiple sites in the pelvis. In December 2016 she began treatment with fulvestrant in combination with palbociclib, and she also started monthly denosumab injections for the metastatic bone involvement. Thus far she has tolerated the treatment very well. Restaging PET/CT on 04/23/2017 showed overall mixed response of multifocal osseous metastatic disease, with improvement in some areas and progression in others. Also noted was interval development of multifocal hepatic metastatic disease which included lesions with SUVs up to 7.5, largely in the left hepatic lobe. Also noted was new hypermetabolic subcutaneous soft tissue in the inferior left chest wall, strongly suspicious for metastatic disease. On 05/09/2017 she started a trial of palliative chemotherapy with Halaven on a standard day 1/day 8 schedule every 21 days. Her treatment was complicated by neutropenia, requiring growth factor support. She also did receive a dose reduction beginning with cycle 5. A restaging PET/CT on 11/19/2017 showed widespread osseous metastatic lesions but with mild improvement compared to the previous study from March 2017. Multifocal hepatic lesions also were mildly improved. Uptake in the left chest wall was noted to be stable. There was no mention of uptake in the right chest wall. She continued treatment with Halaven. As of 03/08/2018 she began her 14th cylce. Her day 8 treatment was delayed 1 week due to neutropenia. Her restaging PET/CT on 04/01/2018 showed progression of her left chest wall disease and progression of metastatic disease in the liver. Also noted was irregular uptake throughout the bone marrow consistent with widespread osseous metastatic disease, much more extensive compared to the prior study in October 2017. With those findings, she was scheduled for biopsy of a left iliac bone lesion to try and verify the ER/MN and HER-2/hannah status of her metastatic disease. That biopsy unfortunately was nondiagnostic. However, as her left breast cancer was HER-2/hannah positive, I did recommend that she proceed with a trial of TCH chemotherapy. She returned on 05/15/2018 for cycle 1 of carboplatin/docetaxel chemotherapy in combination with Herceptin. She had no acute toxicity during the administration of the chemotherapy. However, at completion of her treatment, she had become very lethargic, and she was sent to the emergency room for evaluation. A noncontrast head CT showed no acute findings. CT of the abdomen/pelvis showed prominent small bowel loops as well as distended stomach. An NG tube placed in the emergency room had an output of 300 mL of brownish colored gastric contents. She was admitted for overnight observation, and by the following day she was feeling better and she was able to be discharged home. It was thought that she most likely had opiate-induced ileus. She was then able to proceed with cycle 2 of carboplatin/docetaxel/Herceptin on 06/05/2018. It was administered with a 20% reduction in the chemotherapy dosages. The Herceptin was adjusted to the 3-week dosing schedule. She tolerated it well, and she was then able to continue her treatment at 3-week intervals. As of 08/28/2018 she completed her 6th cycle. In the presence of BRCA2 mutation and a good response to [place] based chemotherapy, she was then transitioned to maintenance therapy with olaparib 300 mg twice daily beginning in October 2018. She also continued the monthly denosumab injections for the metastatic bone involvement. Her other medical illnesses have been limited to hypertension and osteoporosis. She has had some chronic swelling in the lower extremities following chemotherapy. She is a nonsmoker. Surgeries have been limited to left modified radical mastectomy in December 2008 and right mastectomy with low axillary dissection in October 2016. She also had undergone placement of Port-A-Cath venous access device for chemotherapy in 2008. INTERIM HISTORY: She is seen for a followup visit. During the past 2 months she has had worsening erythema in the left chest wall with development of 2 open sores. This has continued to worsen despite antibiotic therapy. She has not been feeling good generally. She says her energy is not very good, and she has limited activity. Her ECOG score is 2. Her appetite is okay, but she has lost weight. She does not have fever, night sweats, or hot flashes. She has no shortness of breath, cough, or chest pain. She has quite a bit of heartburn despite taking Protonix. She has no other GI or complaints. She is having pain in her left chest wall area. She also has some back pain. She does not complain of headache or dizziness. She has numbness/tingling in her fingertips and toes. Medications: Calcium 1 Tablet (of 500 mg) Oral b.i.d., Eliquis 1 Tablet (of 5 mg) Oral b.i.d., Ergocalciferol 1 (93871 Units) Capsule Oral q 30 days, Gabapentin 1 Tablet (of 600 mg) Capsule Oral t.i.d., Klor-Con M10 1 (10 meq) Tablet, controlled release Oral b.i.d., Magnesium 1 Tablet (of 400 mg) Oral b.i.d., Morphine Sulfate 1 Tablet (of 30 mg) Oral four times a day PRN, Morphine Sulfate ER 1 Tablet (of 100 mg) Capsule SR 24 HR Oral q 12 hours PRN, Olaparib 2 Tablet (of 150 mg) Oral b.i.d., Protonix 1 (40 mg) Tablet, enteric coated Oral daily, Senokot S 1 Tablet (of 8.6-50 mg) Oral b.i.d. PRN, Vitamin B12 1 Tablet Oral daily Allergies: No Known Allergies. Review of Systems: Constitutional - Her energy is low. 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 Her appetite is good but weight is down about 6 pounds from last visit. No fever, night sweats, or hot flashes. ECOG score is 2, ENMT - No sinus congestion/drainage. No mouth sores. No sore throat or difficulty swallowing, Hematologic/Lymphatic - No abnormal bruising or bleeding, Respiratory - No shortness of breath. No cough. No pleuritic pain or hemoptysis, Cardiovascular - No angina pain. No palpitations, Gastrointestinal - No nausea or vomiting. Her heartburn is not controlled with taking the Protonix once daily. No diarrhea or constipation. No blood in the stool or black stools, Genitourinary (F) - No dysuria or hematuria. No urinary frequency. No urgency or incontinence, Musculoskeletal - She is having pain in her left rib area this is similiar to the previous pain to her right rib, Integumentary - No skin complications, Neurologic - No headache or dizziness. She is having numbness and tingling in her fingertips and toes. No other focal neurologic symptoms, Psychiatric - No anxiety or depression. No insomnia. Vital Signs: Performed on Sep 10, 2019 09:16 Height - 68.00 in Weight - 157.6 lbs (LOW) BSA - 1.85 sq.m BMI - 23.96 Temperature - 97.9 F (LOW) Pulse - 85 /min Respiration - 16 /min BP - 96/58 mm(hg) O2 Sat - 98 % Pain - 4 Physical Examination: Constitutional - She appears somewhat weak generally, Eyes - Sclerae nonicteric. Conjunctivae clear, ENMT - No lesions noted in the oral cavity, Hematologic/Lymphatic - No cervical or clavicular adenopathy, Respiratory - Lungs are clear, Cardiovascular - Heart rhythm is regular. There is a II/ systolic murmur. There is no gallop or rub noted, Breasts - The right chest wall shows no lesions. The left chest wall shows diffuse erythema, now with 2 ulcerative lesions, both inferior to the mastectomy scar, one located laterally in the chest wall and the other located more medial and inferior. I do not feel any axillary lymphadenopathy, Abdomen - Soft. Liver and spleen are not enlarged. There is no abdominal mass or ascites noted and there is no inguinal adenopathy, Extremities - No edema, Neurologic - No focal neurologic deficits noted. Lab/Imaging: Test performed on Sep 10, 2019 08:34 Ferritin 867 ng/mL Iron 28 mcg/dL Sodium 135 mmol/L Vitamin B12 > 2000 pg/mL Iron Binding Capacity (TIBC) 194 mcg/dl Potassium 3.8 mmol/L % Iron Saturation 14.4 % Chloride 99 mmol/L CO2 23 mmol/L UIBC 166 mcg/dL Anion Gap 16.8 BUN 13 mg/dL Creatinine 1.1 mg/dL Cr Clearance (Est) 56.77 mL/min eGFR 49.7 mL/min Glucose 142 mg/dL Calcium 9.4 mg/dL Protein, Total 7.4 g/dL Albumin 3.9 g/dL Globulin 3.5 g/dL Bilirubin, Total 0.6 mg/dL ALT (SGPT) 15 U/L AST (SGOT) 23 U/L Alkaline Phosphatase 95 IU/L WBC 5.2 10 3/uL RBC 2.20 10 6/uL HGB 8.6 g/dL HCT 25.3 % MCV 115.0 fL MCH 39.1 pg MCHC 34.0 g/dL RDW 17.9 % Platelet Count 202 10 3/cmm MPV 10.3 fL Neutrophils 3.71 10 3/uL Lymphocytes 0.8 10 3/uL Monocytes 0.5 10 3/uL Eosinophils 0.0 10 3/uL Basophils 0.1 10 3/uL Neutrophil % 71.0 % Lymphocyte % 16.1 % Monocyte % 10.1 % Eosinophil % 0.6 % Basophils % 1.1 % NRBC % 0.4 % Impression: 1. Patient with inflammatory carcinoma of the left breast, stage IIIB, ER positive/MN negative and HER-2/hannah positive treated with neoadjuvant TCH chemotherapy followed by left modified radical mastectomy in December 2008 and prophylactic chest wall radiation. She also completed 5 years of adjuvant hormonal therapy with Femara. 2. In 2016 she was found to have grade 2 invasive ductal carcinoma of the right breast, ER positive/MN negative and HER-2/hannah negative. 3. She underwent ultrasound-guided needle biopsy on 11/09/2016 followed by right simple mastectomy/low axillary dissection on 11/25/2016. 4. She was found to have stage IV disease (T2, pN2a, M1), with PET/CT showing multiple sites of bone involvement in the spine and pelvis. 5. On 01/05/2017 she began treatment with fulvestrant in combination with palbociclib. She also started monthly denosumab injections for the metastatic bone involvement. She completed 4 cycles of palbociclib. Her restaging PET/CT on 04/23/2017 showed mixed response with regard to the metastatic bone involvement, but unfortunately there was additional progression with new hepatic metastatic disease and new metastatic involvement in the left chest wall. 6. On 05/09/2017 she began a trial of palliative chemotherapy with Halaven on a standard day 1/day 8 schedule every 21 days. Restaging PET/CT on 11/19/2017 did show some improvement in the osseous and hepatic metastatic disease with no obvious disease progression. She then continued treatment with Halaven, which she tolerated well with growth factor support. 7. As of 03/08/2018 she began her 14th cycle of treatment. Her restaging PET/CT on 04/01/2018 showed evidence of significant disease progression including the left chest wall and liver as well as extensive metastatic bone involvement. 8. She began treatment with TCH chemotherapy on 05/15/2018. She had tolerated it well following a 20% reduction in the chemotherapy dosages. As of 08/28/2018 she completed her 6th cycle. By clinical evaluation she had a good response. 9. During that time, she was evaluated with a next generation sequencing study, which did confirm the presence of a BRCA2 mutation, presumed to be somatic. In the setting of a good response to [place] based chemotherapy, she was then transitioned to maintenance therapy with olaparib 300 mg twice daily beginning in October 2018. During follow-up she had gradual improvement in her performance status after stopping the chemotherapy. She has been able to continue the olaparib at the same dosage, and she had been showing a steady decline in her CA 27.29 level. She has been moderately anemic, which I had assumed that it is treatment related. However, over the past 2 months there have been significant changes in the left chest wall which have continued to worsen despite antibiotic therapy. It appears almost certain now that this is due to disease progression. Plan: She will stop the olaparib, and I will schedule her for a restaging PET/CT. If it does confirm disease progression, I think it would be best to put her back on [place] based chemotherapy, as she will have limited options for further systemic therapy. Signed By: Ming Sainz M.D. <<Signature on File>>
[2019-09-18 09:26] LABS: Basophils # 0.1 10^3/uL (0.0-0.1); Basophils % 1.8 %; Eosinophils % 0.9 %; Hematocrit 26.2 % (37.0-47.0); Hemoglobin 8.5 g/dL (11.5-15.3); Lymphocytes % 22.3 %; Mean Corpuscular HGB Conc 32.4 g/dL (30.0-36.0); Mean Corpuscular Hemoglobin 37.4 pg (28.0-34.0); Mean Corpuscular Volume 115.4 fL (81-99); Mean Platelet Volume 10.7 fL (7.4-10.4); Monocytes # 0.6 10^3/uL (0.2-0.9); Monocytes % 13.6 %; Neutrophils # 2.77 10^3/uL (1.8-7.7); Neutrophils % 60.5 %; Nucleated Red Blood Cells % 0 %; Platelet Count 299 10^3/cmm (130-400); Red Blood Count 2.27 10^6/uL (4.1-5.3); Red Cell Distribution Width 18.2 % (12.1-15.1); White Blood Count 4.6 10^3/uL (4.0-10.0)
[2019-09-18 09:50] LABS: Alanine Aminotransferase 18 U/L (0-33); Albumin Level 3.6 g/dL (3.5-5.2); Alkaline Phosphatase 128 IU/L (35-105); Anion Gap 14.5 (5-19); Aspartate Amino Transferase 36 U/L (0-32); Blood Urea Nitrogen 15 mg/dL (8-23); Calcium 9.3 mg/dL (8.5-10.5); Carbon Dioxide 24 mmol/L (22-29); Chloride 104 mmol/L (98-107); Globulin 3.2 g/dL (1.3-4.6); Glomerular Filtration Rate 55.5 mL/min (90-130); Glucose 108 mg/dL (65-115); Osmolality Calculated 283 mOsm/kg (285-295); Potassium 4.5 mmol/L (3.5-5.1); Sodium 138 mmol/L (136-145); Total Bilirubin 0.4 mg/dL (0.15-1.2); Total Protein 6.8 g/dL (6.6-8.7)
== END 2019-09-28 23:59 | disposition home or self-care (01) ==
LOC: ONCMED 06:47
PROVIDERS: Visit Provider Nurse Practitioner
DX: C79.51 Secondary malignant neoplasm of bone (principal); C50.411 Malignant neoplasm of upper-outer quadrant of right female breast; C78.7 Secondary malignant neoplasm of liver and intrahepatic bile duct; D64.9 Anemia, unspecified; I10 Essential (primary) hypertension; M81.0 Age-related osteoporosis without current pathological fracture; Z17.0 Estrogen receptor positive status [ER+]; Z79.01 Long term (current) use of anticoagulants; Z92.3 Personal history of irradiation; Z92.23 Personal history of estrogen therapy; Z85.3 Personal history of malignant neoplasm of breast; Z90.13 Acquired absence of bilateral breasts and nipples
CPT/HCPCS: 36591; 80053; 82607; 82728; 82746; 83540; 83550; 85025; 86300; 96372; 99214; J0897

== ENCOUNTER 2019-10-16 15:57 | Inpatient (IN) | payer MEDICAID, SELFPAY ==
[2019-10-16 15:58] VITALS: BMI 28.3
--- NOTE | 2019-10-16 15:59 | XR_ITS ---
WS: [id number] EXAM: AP CHEST: PORTABLE UPRIGHT DATE OF EXAM: 10/16/2019, 1604 hour COMPARISON: Chest x-rays from 05/14/2013 and 05/15/2018 HISTORY: Patient is 69 years old with shortness of breath and cough.. FINDINGS: The cardiac silhouette is normal in size. The mediastinal contours are similar. Right subclavian p ort remains in place with the catheter ending in the SVC region. The pulmonary vascularity is renetta l. Chronic lung changes again demonstrated. Lungs are clear of consolidation. There is no effusion or pneumothorax. Multilevel degenerative changes are seen in the spine. XR/XR chest 1V portable [id number] IMPRESSION: Chronic lung changes. No acute pulmonary disease.
[2019-10-16] MEDS: sodium chloride 0.9% 1,000 ML 999 ML IV (16:00)
--- NOTE | 2019-10-16 16:00 | ECG_ITS ---
[facility] Test Date: 2019-10-16 Pat Name: Luiza Salmon Department: Room: Gender: Female Director Of Oncology: : 1950 Requested By: Herbert Esquivel Order Number: [id number] Dianne MD: Get Dominguez M.D. Measurements Intervals [employer] Rate: 99 P: 22 AK: 147 QRS: 28 QRSD: 86 T: 207 QT: 325 QTc: 418 Interpretive Statements SINUS RHYTHM NONSPECIFIC T-WAVE ABNORMALITY Compared to ECG 05/15/2018 17:25:55 T-wave abnormality now present Myocardial infarct finding no longer present Electronically Signed On 10-16-2019 17:11:41 CDT by Get Dominguez M.D. [email or web address]
[2019-10-16 16:03] VITALS: BP 103/77; PULSE 111; RESP 16; TEMP 37.1; O2SAT 98
--- NOTE | 2019-10-16 16:16 | ED_ITS ---
Documented by User: Herbert Franklin DO 10/17/19 06:07 HPI - Syncope General: Chief Complaint: Syncope Stated Complaint: NEAR SYNCOPE Time Seen by Provider: 10/16/19 15:59 History of Present Illness: HPI narrative: 69-year-old female brought in by EMS, they were called to her home for an unresponsive person. Family had called patient had lately chemo 1 week ago for breast CA with metastasis to the bone. She has been nauseated and gagging she said she feels like she needs to vomit nausea and dry heaves but is not actually vomited she is not had any diarrhea this all started immediately after her last chemo she denies any chest pain shortness of breath cough or fever which she has had bloating she denies hematochezia melena hematemesis or coffee-ground emesis. complaint: almost passed out Prodromal symptoms: none Witnessed: No Context: other (Breast cancer with bony metastasis) Associated symptoms: Reports nausea and weakness; Deny chest pain History: other (Breast cancer with bony metastasis) Treatments prior to arrival: none Review of Systems ENMT: Denies: throat pain, ear or mastoid pain, nasal discharge or nasal congestion Card: Denies: chest pain, edema, dyspnea on exertion or orthopnea Resp: Denies: dyspnea, productive cough or non-productive cough GI: Reports: nausea : Denies: flank pain, difficulty voiding, dysuria, urinary frequency or urinary urgency Skin/Breast: Denies: rash or pruritus PFSH ED PFSH: Medical History Antineoplastic chemotherapy induced anemia Bakers cyst Breast cancer metastasized to 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, 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 positive ME negative HER-2 negative stage IV metastatic to bone H/O drainage of abscess Left thigh abscess drainage x2 with superficial venous thrombosis History of small bowel obstruction Hypertension Hypertension Osteoarthritis Osteoporosis Port-A-Cath in place Surgical History History of bilateral mastectomy History of modified radical mastectomy of left breast Family History Sister Cancer Sister had cervical cancer no other family with known breast cancer Social History Smoking and tobacco status: former smoker Alcohol intake: never Household members: family Housing: House Physical Exam Const: COMMON NORMALS: no acute distress GENERAL APPEARANCE: cooperative and comfortable ORIENTATION/CONSCIOUSNESS: Yes awake, Yes oriented to person, Yes oriented to place and Yes oriented to time HENMT: COMMON NORMALS: normocephalic, atraumatic and hearing grossly normal bilaterally HEAD & SCALP: normocephalic and atraumatic Eye: COMMON NORMALS: Equal, round and reactive pupils present, EOMs intact bilaterally, conjunctivae normal and no scleral icterus CONJUNCTIVA: Yes conjunctivae normal PUPIL: Yes Equal, round and reactive pupils present Neck/C-Spine: COMMON NORMALS: full ROM, no lymphadenopathy, supple and no JVD Lymph: LYMPHATIC: no lymphadenopathy noted and no lymphedema noted Resp: COMMON NORMALS: normal respiratory effort, No retractions, No use of accessory muscles and clear to auscultation bilaterally AUSCULTATION: clear to auscultation bilaterally Cardio: COMMON NORMALS: no JVD, regular rate, regular rhythm and No murmurs present (Cardio) RATE: regular rate RHYTHM: regular rhythm GI: COMMON NORMALS: No hepatosplenomegaly present AUSCULTATION: Yes Absent bowel sounds PALPATION: Yes Tenderness to palpation present (GI) (Generalized), No Guarding due to palpation present (GI) and Yes No hepatosplenomegaly present Extremity: COMMON NORMALS: normal to inspection, capillary refill normal, no clubbing, cyanosis or edema, no calf tenderness and no pedal edema Neuro: SENSORIUM/ORIENTATION: Yes oriented to person, Yes oriented to place and Yes oriented to time Skin: COMMON NORMALS: no rashes or lesions noted GENERAL SKIN EXAM: no rashes or lesions noted Course Vital Signs: Vital signs: Vital Signs Temperature 99.1 F 10/17/19 04:16 Pulse Rate 93 10/17/19 04:16 Respiratory Rate 24 H 10/17/19 04:16 Blood Pressure 106/69 10/17/19 04:16 Pulse Oximetry 98 10/17/19 04:16 MDM - Syncope MDM Narrative: Medical decision making narrative: Care turned over to Dr. Desir at change of shift. Please see his notes for final diagnosis and disposition. Lab Data: Labs: Lab Results 0810/16/19 10/16/19 Range/Units 16:20 16:20 16:20 WBC 0.6 L* (4.0-10.0) 10^3/ uL RBC 2.77 L (4.1-5.3) 10^6/u L Hgb 9.2 L (11.5-15.3) g/dL Hct 28.9 L (37.0-47.0) % MCV 104.3 H (81-99) fL MCH 33.2 (28.0-34.0) pg MCHC 31.8 (30.0-36.0) g/dL RDW 17.6 H (12.1-15.1) % Plt Count 51 L (130-400) 10^3/c mm MPV 11.5 H (7.4-10.4) fL Neut % (Auto) 0.0 % Lymph % (Auto) 72.8 % [place] % (Auto) 23.6 % Eos % (Auto) 1.8 % Baso % (Auto) 1.8 % Neut # (Auto) 0.00 L* (1.8-7.7) 10^3/u L Lymph # (Auto) 0.4 L (0.8-4.8) 10^3/u L [place] # (Auto) 0.1 L (0.2-0.9) 10^3/u L Eos # (Auto) 0.0 (0.0-0.8) 10^3/u L Baso # (Auto) 0.0 (0.0-0.1) 10^3/u L Nucleated RBC % (a uto) 0 % Nucleated RBCs # 0.0 /100WBC Sodium 133 L (136-145) mmol/L Potassium 4.2 (3.5-5.1) mmol/L Chloride 95 L (98-107) mmol/L Carbon Dioxide 24 (22-29) mmol/L Anion Gap 18.2 (5-19) BUN 28 H (8-23) mg/dL Creatinine 1.1 H (0.5-0.9) mg/dL GFR Calculation 49.5 L (90-130) mL/min Glucose 168 H (65-115) mg/dL Calculated Osmolal ity 277 L (285-295) mOsm/k g Lactic Acid (0.5-2.2) mmol/L Calcium 9.3 (8.5-10.5) mg/dL Total Bilirubin 1.4 H (0.15-1.2) mg/dL AST 60 H (0-32) U/L ALT 40 H (0-33) U/L Alkaline Phosphata se 149 H (35-105) IU/L Troponin T Baselin e 29 H (0-10) ng/L Troponin T 120 Min mechoopda (0-10) ng/L Delta Troponin T (0-10) ABS# Total Protein 7.4 (6.6-8.7) g/dL Albumin 3.6 (3.5-5.2) g/dL Globulin 3.8 (1.3-4.6) g/dL 10/16/19 10/16/19 Range/Units 16:20 18:15 WBC (4.0-10.0) 10^3/ uL RBC (4.1-5.3) 10^6/u L Hgb (11.5-15.3) g/dL Hct (37.0-47.0) % MCV (81-99) fL MCH (28.0-34.0) pg MCHC (30.0-36.0) g/dL RDW (12.1-15.1) % Plt Count (130-400) 10^3/c mm MPV (7.4-10.4) fL Neut % (Auto) % Lymph % (Auto) % [place] % (Auto) % Eos % (Auto) % Baso % (Auto) % Neut # (Auto) (1.8-7.7) 10^3/u L Lymph # (Auto) (0.8-4.8) 10^3/u L [place] # (Auto) (0.2-0.9) 10^3/u L Eos # (Auto) (0.0-0.8) 10^3/u L Baso # (Auto) (0.0-0.1) 10^3/u L Nucleated RBC % (a uto) % Nucleated RBCs # /100WBC Sodium (136-145) mmol/L Potassium (3.5-5.1) mmol/L Chloride (98-107) mmol/L Carbon Dioxide (22-29) mmol/L Anion Gap (5-19) BUN (8-23) mg/dL Creatinine (0.5-0.9) mg/dL GFR Calculation (90-130) mL/min Glucose (65-115) mg/dL Calculated Osmolal ity (285-295) mOsm/k g Lactic Acid 3.3 H (0.5-2.2) mmol/L Calcium (8.5-10.5) mg/dL Total Bilirubin (0.15-1.2) mg/dL AST (0-32) U/L ALT (0-33) U/L Alkaline Phosphata se (35-105) IU/L Troponin T Baselin e (0-10) ng/L Troponin T 120 Min mechoopda 25.71 H (0-10) ng/L Delta Troponin T -3.29 L (0-10) ABS# Total Protein (6.6-8.7) g/dL Albumin (3.5-5.2) g/dL Globulin (1.3-4.6) g/dL Discharge Plan Discharge Patient Disposition: Admitted As Inpatient Admit Provider: Reyna Salas Clinical Impression: Breast cancer metastasized to multiple sites, Vasovagal syncope, Weakness Condition: Stable Interventions: ED Discharge Assessment Last Done: 10/16/19 20:14 ED Charges Last Done: 10/16/19 20:14 Discharge Date/Time: 10/16/19 20:14 Coding Level of Care Code ED Station Installer And Repairer for Chg Fwd Exam Comprehensive Documented by User: Bassem Desir MD 10/16/19 19:12 HPI - Syncope General: Chief Complaint: Syncope Stated Complaint: NEAR SYNCOPE Time Seen by Provider: 10/16/19 15:59 PFSH ED PFSH: Medical History Antineoplastic chemotherapy induced anemia Bakers cyst Breast cancer metastasized to 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, 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 positive ME negative HER-2 negative stage IV metastatic to bone H/O drainage of abscess Left thigh abscess drainage x2 with superficial venous thrombosis History of small bowel obstruction Hypertension Hypertension Osteoarthritis Osteoporosis Port-A-Cath in place Surgical History History of bilateral mastectomy History of modified radical mastectomy of left breast Family History Sister Cancer Sister had cervical cancer no other family with known breast cancer Social History Smoking and tobacco status: former smoker Alcohol intake: never Household members: family Housing: House Course Vital Signs: Vital signs: Vital Signs Temperature 99.1 F 10/17/19 04:16 Pulse Rate 93 10/17/19 04:16 Respiratory Rate 24 H 10/17/19 04:16 Blood Pressure 106/69 10/17/19 04:16 Pulse Oximetry 98 10/17/19 04:16 MDM - Syncope MDM Narrative: Medical decision making narrative: Patient presents here with a history of cancer. Patient had a syncopal event today and has had generalized weakness. Patient does appear quite weak likely from vomiting and her recent chemo. She has had no fever no signs of infection. Patient states she does not feel well enough to go home I spoke to hospitalist will admit for further hydration. Patient CT scan here showed no small bowel obstruction but did show extensive cancer with metastatic disease. Lab Data: Labs: Lab Results 10/16/19 10/16/19 10/16/19 Range/Units 16:20 16:20 16:20 WBC 0.6 L* (4.0-10.0) 10^3/ uL RBC 2.77 L (4.1-5.3) 10^6/u L Hgb 9.2 L (11.5-15.3) g/dL Hct 28.9 L (37.0-47.0) % MCV 104.3 H (81-99) fL MCH 33.2 (28.0-34.0) pg MCHC 31.8 (30.0-36.0) g/dL RDW 17.6 H (12.1-15.1) % Plt Count 51 L (130-400) 10^3/c mm MPV 11.5 H (7.4-10.4) fL Neut % (Auto) 0.0 % Lymph % (Auto) 72.8 % [place] % (Auto) 23.6 % Eos % (Auto) 1.8 % Baso % (Auto) 1.8 % Neut # (Auto) 0.00 L* (1.8-7.7) 10^3/u L Lymph # (Auto) 0.4 L (0.8-4.8) 10^3/u L [place] # (Auto) 0.1 L (0.2-0.9) 10^3/u L Eos # (Auto) 0.0 (0.0-0.8) 10^3/u L Baso # (Auto) 0.0 (0.0-0.1) 10^3/u L Nucleated RBC % (a uto) 0 % Nucleated RBCs # 0.0 /100WBC Sodium 133 L (136-145) mmol/L Potassium 4.2 (3.5-5.1) mmol/L Chloride 95 L (98-107) mmol/L Carbon Dioxide 24 (22-29) mmol/L Anion Gap 18.2 (5-19) BUN 28 H (8-23) mg/dL Creatinine 1.1 H (0.5-0.9) mg/dL GFR Calculation 49.5 L (90-130) mL/min Glucose 168 H (65-115) mg/dL Calculated Osmolal ity 277 L (285-295) mOsm/k g Lactic Acid (0.5-2.2) mmol/L Calcium 9.3 (8.5-10.5) mg/dL Total Bilirubin 1.4 H (0.15-1.2) mg/dL AST 60 H (0-32) U/L ALT 40 H (0-33) U/L Alkaline Phosphata se 149 H (35-105) IU/L Troponin T Baselin e 29 H (0-10) ng/L Troponin T 120 Min [place] (0-10) ng/L Delta Troponin T (0-10) ABS# Total Protein 7.4 (6.6-8.7) g/dL Albumin 3.6 (3.5-5.2) g/dL Globulin 3.8 (1.3-4.6) g/dL 10/16/19 10/16/19 Range/Units 16:20 18:15 WBC (4.0-10.0) 10^3/ uL RBC (4.1-5.3) 10^6/u L Hgb (11.5-15.3) g/dL Hct (37.0-47.0) % MCV (81-99) fL MCH (28.0-34.0) pg MCHC (30.0-36.0) g/dL RDW (12.1-15.1) % Plt Count (130-400) 10^3/c mm MPV (7.4-10.4) fL Neut % (Auto) % Lymph % (Auto) % [place] % (Auto) % Eos % (Auto) % Baso % (Auto) % Neut # (Auto) (1.8-7.7) 10^3/u L Lymph # (Auto) (0.8-4.8) 10^3/u L [place] # (Auto) (0.2-0.9) 10^3/u L Eos # (Auto) (0.0-0.8) 10^3/u L Baso # (Auto) (0.0-0.1) 10^3/u L Nucleated RBC % (a uto) % Nucleated RBCs # /100WBC Sodium (136-145) mmol/L Potassium (3.5-5.1) mmol/L Chloride (98-107) mmol/L Carbon Dioxide (22-29) mmol/L Anion Gap (5-19) BUN (8-23) mg/dL Creatinine (0.5-0.9) mg/dL GFR Calculation (90-130) mL/min Glucose (65-115) mg/dL Calculated Osmolal ity (285-295) mOsm/k g Lactic Acid 3.3 H (0.5-2.2) mmol/L Calcium (8.5-10.5) mg/dL Total Bilirubin (0.15-1.2) mg/dL AST (0-32) U/L ALT (0-33) U/L Alkaline Phosphata se (35-105) IU/L Troponin T Baselin e (0-10) ng/L Troponin T 120 Min [place] 25.71 H (0-10) ng/L Delta Troponin T -3.29 L (0-10) ABS# Total Protein (6.6-8.7) g/dL Albumin (3.5-5.2) g/dL Globulin (1.3-4.6) g/dL Imaging Data^: CXR: Radiologist's impression: [id number] Order #: [id number] Report Status: Finalized Reason: dyspnea/[place] [address] XRay Report Signed Patient: Luiza Salmon Unit #: [id number] : 1950 Age/Sex: 69 / F ADM Date: 10/16/19 Loc: ER Room/Bed: Attending Dr: Ordering Provider/Ordering MD: Herbert Franklin DO Date of Service: 10/16/19 Procedure(s): XR chest 1V portable [id number] Accession Number(s): [id number] Report Number: [id number] WS: [id number] EXAM: AP CHEST: PORTABLE UPRIGHT DATE OF EXAM: 10/16/2019, 1604 hour COMPARISON: Chest x-rays from 05/14/2013 and 05/15/2018 HISTORY: Patient is 69 years old with shortness of breath and cough.. FINDINGS: The cardiac silhouette is normal in size. The mediastinal contours are similar. Right subclavian port remains in place with the catheter ending in the SVC region. The pulmonary vascularity is normal. Chronic lung changes again demonstrated. Lungs are clear of consolidation. There is no effusion or pneumothorax. Multilevel degenerative changes are seen in the spine. XR/XR chest 1V portable [id number] IMPRESSION: Chronic lung changes. No acute pulmonary disease. CT Abd/Pel: Radiologist's impression: [address] [address] [address] Scan Report Signed Patient: Luiza Salmon Unit #: [id number] : 1950 Age/Sex: 69 / F ADM Date: 10/16/19 Loc: ER Room/Bed: Attending Dr: Ordering Provider/Ordering MD: Herbert Franklin DO Date of Service: 10/16/19 Procedure(s): CT abdomen pelvis w con* [id number] Accession Number(s): [id number] Report Number: [id number] WS: [id number] EXAM: CT OF THE ABDOMEN AND PELVIS WITH CONTRAST DATE OF EXAMINATION: 10/16/2019, 1800 hours COMPARISON: CT of the abdomen and pelvis from 05/15/2018 HISTORY: 69 years old with abdominal pain after chemotherapy treatment. Nausea. History of breast cancer. TECHNIQUE: Transaxial computed tomography images obtained through the abdomen and pelvis utilizing 95 mL of Omnipaque 300 IV contrast with images acquired in the portal and delayed phase. Images viewed in multiple windows with reconstructions. DLP: 776.[address] scans at [facility] use at least one of these dose optimization techniques: automated exposure control; mA and/or kV adjustment per patient size (includes targeted exams where dose is matched to clinical indication); or iterative reconstruction. FINDINGS: Both lung bases are clear. No infiltrate, effusion or pneumothorax. Heart size is normal. The aorta is normal in caliber and opacifies normally. The liver is grossly abnormal. There are findings consistent with diffuse metastatic disease throughout the liver. The gallbladder is normally distended without identifiable stones or pericholecystic inflammatory change. No biliary dilatation is seen. The portal vein is patent. Spleen is normal in size. Several lesions within the spleen are seen. Possibly granulomas rather than unlikely metastatic disease. Pancreas is normal in appearance. Adrenal glands are normal in appearance. Both kidneys enhance normally. Several lesions involving the right kidney is seen most likely cysts. Lesion left kidney also most likely a cyst. No obstructive uropathy. Stomach is decompressed otherwise normal in appearance. Small bowel is normal in caliber. The colon is normal in caliber as well. No findings of bowel obstruction, free air, free fluid or inflammatory process noted. Normal appendix in the right false/deep pelvis juncture region. There are findings of adenopathy considered pathological within the allyn hepatis region. No adenopathy within the mesenteric arcade. Enlarged lymph nodes within the retroperitoneal seen superiorly between the IVC and aorta. No umbilical hernia is seen. No inguinal hernia is seen. Uterus is atretic otherwise unremarkable. No adnexal mass. The bladder is normal in appearance. Overall bone density is decreased. Multilevel changes of arthritis are demon strated. There are areas of sclerosis scattered within some of the bones. Suspicious for breast bony metastatic disease. Slight arthritis in both hip joints. CT/CT abdomen pelvis w con* [id number] IMPRESSION: Imaging findings felt to represent diffuse metastatic disease throughout the liver. Additional pathological adenopathy in the allyn hepatis and also in the retroperitoneum superiorly between the IVC and aorta most likely metastatic involvement as well. Suspicion for bony metastasis as well. No bowel obstruction, free air or free fluid. No renal or ureteral calculus or obstructive uropathy. Other nonemergent findings as described in the body of the report. EKG Data^: EKG 1: Attestation: I personally reviewed and interpreted this EKG as follows: EKG interpretation date: 10/16/19 EKG interpretation time: 16:25 Interpretation: nsr hr99 no st or t wave abnormalities qrs 86 qtc 381 Discharge Plan Discharge Patient Disposition: Admitted As Inpatient Admit Provider: Reyna Salas Clinical Impression: Breast cancer metastasized to multiple sites, Vasovagal syncope, Weakness Condition: Stable Interventions: ED Discharge Assessment Last Done: 10/16/19 20:14 ED Charges Last Done: 10/16/19 20:14 Discharge Date/Time: 10/16/19 20:14 Coding Level of Care Code ED Station Installer And Repairer for Chg Fwd Exam Comprehensive
--- NOTE | 2019-10-16 16:22 | CT_ITS ---
WS: [id number] EXAM: CT OF THE ABDOMEN AND PELVIS WITH CONTRAST DATE OF EXAMINATION: 10/16/2019, 1800 hours COMPARISON: CT of the abdomen and pelvis from 05/15/2018 HISTORY: 69 years old with abdominal pain after chemotherapy treatment. Nausea. History of breast cancer. TECHNIQUE: Transaxial computed tomography images obtained through the abdomen and pelvis utilizing 95 mL of Omni paque 300 IV contrast with images acquired in the portal and delayed phase. Images viewed in multiple windows with reconstructions. DLP: 776.[address] scans at [facility] use at least one of these dose optimization techniques: automat ed exposure control; mA and/or kV adjustment per patient size (includes targeted exams where dose is matched to clinical indication); or iterative reconstruction. FINDINGS: Both lung bases are clear. No infiltrate, effusion or pneumothorax. Heart size is normal. The aorta i s normal in caliber and opacifies normally. The liver is grossly abnormal. There are findings consistent with diffuse metastatic disease througho ut the liver. The gallbladder is normally distended without identifiable stones or pericholecystic inflammatory dona nge. No biliary dilatation is seen. The portal vein is patent. Spleen is normal in size. Several lesions within the spleen are seen. Possibly granulomas rather than unlikely metastatic disease. Pancreas is normal in appearance. Adrenal glands are normal in appearance. Both kidneys enhance normally. Several lesions involving the right kidney is seen most likely cysts. Lesion left kidney also most likely a cyst. No obstructive uropathy. Stomach is decompressed otherwise normal in appearance. Small bowel is normal in caliber. The colon i s normal in caliber as well. No findings of bowel obstruction, free air, free fluid or inflammatory p rocess noted. Normal appendix in the right false/deep pelvis juncture region. There are findings of adenopathy considered pathological within the allyn hepatis region. No adenopat hy within the mesenteric arcade. Enlarged lymph nodes within the retroperitoneal seen superiorly betw een the IVC and aorta. No umbilical hernia is seen. No inguinal hernia is seen. Uterus is atretic otherwise unremarkable. No adnexal mass. The bladder is normal in appearance. Overall bone density is decreased. Multilevel changes of arthritis are demonstrated. There are areas of sclerosis scattered within some of the bones. Suspicious for breast bony metastatic disease. Sligh t arthritis in both hip joints. CT/CT abdomen pelvis w con* [id number] IMPRESSION: Imaging findings felt to represent diffuse metastatic disease throughout the li aren. Additional pathological adenopathy in the allyn hepatis and also in the re troperitoneum superiorly between the IVC and aorta most likely metastatic invol vement as well. Suspicion for bony metastasis as well. No bowel obstruction, free air or free fluid. No renal or ureteral calculus or obstructive uropathy. Other nonemergent findings as described in the body of the report.
[2019-10-16 16:33] LABS: Basophils % 1.8 %; Eosinophils % 1.8 %; Hematocrit 28.9 % (37.0-47.0); Hemoglobin 9.2 g/dL (11.5-15.3); Lymphocytes # 0.4 10^3/uL (0.8-4.8); Lymphocytes % 72.8 %; Mean Corpuscular HGB Conc 31.8 g/dL (30.0-36.0); Mean Corpuscular Hemoglobin 33.2 pg (28.0-34.0); Mean Corpuscular Volume 104.3 fL (81-99); Mean Platelet Volume 11.5 fL (7.4-10.4); Monocytes # 0.1 10^3/uL (0.2-0.9); Monocytes % 23.6 %; Nucleated Red Blood Cells % 0 %; Platelet Count 51 10^3/cmm (130-400); Red Blood Count 2.77 10^6/uL (4.1-5.3); Red Cell Distribution Width 17.6 % (12.1-15.1)
[2019-10-16 16:56] LABS: Alanine Aminotransferase 40 U/L (0-33); Albumin Level 3.6 g/dL (3.5-5.2); Alkaline Phosphatase 149 IU/L (35-105); Anion Gap 18.2 (5-19); Aspartate Amino Transferase 60 U/L (0-32); Blood Urea Nitrogen 28 mg/dL (8-23); Calcium 9.3 mg/dL (8.5-10.5); Carbon Dioxide 24 mmol/L (22-29); Chloride 95 mmol/L (98-107); Globulin 3.8 g/dL (1.3-4.6); Glomerular Filtration Rate 49.5 mL/min (90-130); Glucose 168 mg/dL (65-115); Osmolality Calculated 277 mOsm/kg (285-295); Potassium 4.2 mmol/L (3.5-5.1); Sodium 133 mmol/L (136-145); Total Bilirubin 1.4 mg/dL (0.15-1.2); Total Protein 7.4 g/dL (6.6-8.7)
[2019-10-16 16:57] LABS: Troponin(5th) Baseline 29 ng/L (0-10)
[2019-10-16 17:15] LABS: Slide Review Slide Review Perform; White Blood Count 0.6 10^3/uL (4.0-10.0)
[2019-10-16 17:32] LABS: Lactic Sepsis W/Reflex 3.3 mmol/L (0.5-2.2)
--- NOTE | 2019-10-16 18:00 | ECG_ITS ---
[facility] Test Date: 2019-10-16 Pat Name: Luiza Salmon Department: Room: Gender: Female Plasma Processing Technician: : 1950 Requested By: Herbert Esquivel Order Number: [id number] Dianne MD: Reyna Quinones M.D. Measurements Intervals [place] Rate: 85 P: 29 OK: 148 QRS: 30 QRSD: 85 T: 68 QT: 360 QTc: 429 Interpretive Statements SINUS RHYTHM NONSPECIFIC T-WAVE ABNORMALITY Compared to ECG 10/16/2019 16:25:34 No significant changes Electronically Signed On 10-17-2019 20:26:04 CDT by Reyna Quinones M.D. [email or web address]
[2019-10-16] MEDS: iodixanol 320 mg/mL 100mL Btl IV (18:05)
[2019-10-16 18:36] VITALS: RESP 15; O2SAT 97
[2019-10-16] MEDS: morphine 4 mg/mL SDV 1 mL IVP (18:36)
[2019-10-16 18:42] LABS: Troponin 5 2HR 25.71 ng/L (0-10)
[2019-10-16 18:56] LABS: Troponin 5 2HR Delta -3.29 ABS# (0-10)
[2019-10-16 19:01] LABS: Reflex Lactate Order REFLEX LACTIC ORDERD
[2019-10-16 19:05] VITALS: BP 102/64; PULSE 88; RESP 14; O2SAT 100
--- NOTE | 2019-10-16 19:34 | PM.HP ---
Providers/Chief Complaint Admitting Physician: Reyna Salas MD Chief Complaint: NEAR SYNCOPE History of Present Illness Luiza Salmon is a 69 year old female who carries history of breast cancer with metastases to bone involving left chest wall and liver currently undergoing chemotherapy, last chemotherapy center session on Tuesday coming in today for abdominal pain and generalized weakness. Patient is stating that she has been experiencing generalized weakness along with abdominal pain for quite some time, her p.o. intake has been very poor, she has not noticed any nausea, vomiting or diarrhea, but she has been experiencing urinary frequency. She has not noticed any fever at home. For her abdominal rash to use some topical agents at home which did not improve her symptoms at all. She decided to come to the ED because of worsening abdominal wall pain. She is also endorsing excessive drainage from her left chest wall wound, dressing of the wound is soaked with purulent drainage. Patient is stating that her sister was assisting her to go to the bathroom when she had 1 syncopal event while she was in a wheelchair, she did not notice any chest pain, palpitations, aura, seizure-like activities. She could only remember sitting in a wheelchair and had no memory of events which happened afterwards. Diagnostics in the ER revealed severe neutropenia, pancytopenia, patient is afebrile saturating well on room air, soft systolic blood pressure, I have requested neutropenic diet, reverse isolation, added vancomycin and cefepime, requested nurse to use pyodine to cleanse abdominal wall and change dressing of left chest wall area, Patient is denying any active bleeding Review of Systems Const: Reports: chills, body aches, fatigue and malaise; Denies: fever(s) Eyes: Denies: change in vision ENMT: Reports: dry mouth; Denies: throat pain Card: Reports: chest pain (Left chest wall wound area); Denies: dyspnea on exertion or orthopnea Resp: Denies: dyspnea GI: Reports: abdominal pain and heartburn; Denies: nausea, vomiting, diarrhea or constipation : Reports: urinary frequency; Denies: flank pain Musc: Denies: neck pain Skin/Breast: Reports: skin tenderness, new lesions, changing lesions and non-healing lesions Neuro: Denies: headache(s) Psych: Reports: anxiety Endo: Denies: polyuria Ayush/Lymph: Reports: easy bruising, easy bleeding and petechiae All/Imm: Denies: urticaria Medications/Allergies Home Medications Medication Instructions Recorded Confirmed Last Taken Type apixaban [Eliquis] 5 mg PO BID 10/16/19 10/16/19 10/15/19 History calcium carbonate-vitamin D3 1 tab PO BID 10/16/19 10/16/19 10/15/19 History [Oyster Shell Calcium-Vit D3] cyanocobalamin (vitamin B-12) 1,000 mcg PO DAILY 10/16/19 10/16/19 Unknown History [Vitamin B-12] ergocalciferol (vitamin D2) 50,000 unit PO Q30D 10/16/19 10/16/19 Unknown History [Vitamin D2] furosemide 40 mg PO DAILY 10/16/19 10/16/19 Unknown History gabapentin 600 mg PO TID 10/16/19 10/16/19 Unknown History levofloxacin 500 mg PO DAILY 10/16/19 10/16/19 10/15/19 History lorazepam 0.5 mg PO BEDTIME 10/16/19 10/16/19 Unknown History magnesium oxide 400 mg PO BID 10/16/19 10/16/19 Unknown History morphine 30 mg PO QID PRN 10/16/19 10/16/19 Unknown History morphine 100 mg PO Q12H 10/16/19 10/16/19 Unknown History ondansetron HCl [Zofran] 4 - 8 mg PO Q4H PRN 10/16/19 10/16/19 Unknown History pantoprazole 40 mg PO DAILY 10/16/19 10/16/19 10/15/19 History potassium chloride 10 meq PO BID 10/16/19 10/16/19 10/15/19 History Allergies Allergy/AdvReac Type Severity Reaction Status Date / Time No Known Allergies Allergy Verified 10/16/19 17:02 PFSH Acute PFSH: Medical History Antineoplastic chemotherapy induced anemia Bakers cyst 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, 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 positive NE negative HER-2 negative stage IV metastatic to bone H/O drainage of abscess Left thigh abscess drainage x2 with superficial venous thrombosis History of small bowel obstruction Hypertension Hypertension Osteoarthritis Osteoporosis Port-A-Cath in place Surgical History History of bilateral mastectomy History of modified radical mastectomy of left breast Family History Sister Cancer Sister had cervical cancer no other family with known breast cancer Social History Smoking and tobacco status: former smoker Alcohol intake: never Substance/Drug Use: never Household members: family Housing: House Vitals/I&O/Wt Last Vital Signs Temp 98.8 F 10/16/19 16:03 Pulse 88 10/16/19 19:05 Resp 14 10/16/19 19:05 BP 102/64 10/16/19 19:05 Pulse Ox 100 10/16/19 19:05 Weight last 48 hrs Weight 77.111 kg Physical Exam Narrative: EXAM NARRATIVE: This is a frail female who is laying in mild distress in her bed She is complaining of abdominal wall pain There is abdominal wall cellulitis with intertrigo, purulent cellulitis of left chest wall with dressing soaked with purulent discharge Abdomen soft nondistended bowel sound present Neurologically nonfocal exam Poor dental hygiene Patient is denying oral ulcers Appears dehydrated S1, S2 no signs of heart failure Lower extremity without edema gangrene or ulcer Mediport area without any pain or tenderness Data : 10/16/19 16:20 10/16/19 16:20 A&P Assessment and plan (1) Neutropenia: Status: Acute (2) Pancytopenia: Status: Acute (3) Weakness: Status: Acute (4) Generalized weakness: Status: Acute (5) Cellulitis: Status: Acute (6) Abnormal transaminases: Status: Acute (7) Syncope: Status: Acute Additional A&P Information Severe neutropenia with underlying pancytopenia It seems to be drug-induced/chemotherapy-induced pancytopenia She will need Neupogen, will touch base with Dr. Sainz in the morning, currently for her purulent cellulitis I would start her on vancomycin and cefepime for MRSA and antipseudomonal coverage, keep her on normal saline maintenance fluid rate Reverse isolation Blood cultures obtained Lactic acid trended down after fluid resuscitation Not septic Syncopal event I do suspect severe dehydration to be the cause of syncopal event, EKG showing sinus rhythm, no arrhythmia noted, no chest pain or palpitations, troponin trending down, her lactic acid trended down significantly after fluid resuscitation, clinically she looks dry, at home she has been taking Lasix, she is consistent with her Eliquis, no lower extremity swelling, patient is not tachycardic or hypoxic, low risk for PE at this point, I highly doubt will be able to obtain echo because of left chest wall tunneled wound and purulent cellulitis UTI: Patient is complaining of urinary frequency however denying dysuria Would obtain urinalysis and urine culture Purulent cellulitis of left chest wall Purulent drainage of tunneled wound which seems to be secondary to cancer metastases MRSA and antipseudomonal coverage started High risk for sepsis and septic shock considering pancytopenia Cellulitis of lower abdominal wall with intertrigo, topical antifungal Abnormal transaminases with high alkaline phosphatase seems secondary to hepatic metastases, abdominal imaging showing multiple metastases Patient is full code For previous history of PE patient is currently on Eliquis which I would continue for now No need of DVT prophylaxis because of use of Eliquis Neutropenic diet Attestations Medical Necessity Statement*: Neutropenia with abdominal wall cellulitis I am anticipating stay in the hospital cross more than 2 midnights currently need IV antibiotics Time Spent in Patient Care: (>than 50% of time spent in counselling and/or direct pt care on unit). 60mins Coding Level of Care Code Acute Senior Vice President And Chief Information Officer for Yasg Fwd Diagnoses Neutropenia D70.9 Pancytopenia D61.818 Weakness R53.1 Generalized weakness R53.1 Cellulitis L03.90 Abnormal transaminases R74.8 Syncope R55
[2019-10-16 20:00] VITALS: BP 102/69; PULSE 88; RESP 16; TEMP 36.7; O2SAT 100
--- NOTE | 2019-10-16 22:05 | PC.PHAR ---
Vancomycin is dosed at 1500mg IVPB every 24 hours to produce a predicted trough of 16.33 (population based pharmacokinetic analysis). A trough level has been ordered from the lab to be obtained before the fourth dose to confirm and adjust if needed.
[2019-10-16 23:04] VITALS: RESP 18
[2019-10-16] MEDS: gabapentin 300 mg Capsule 600 MG PO (23:04)
[2019-10-16] MEDS: morphine IR 15 mg Tablet 30 MG PO (23:04)
[2019-10-16] MEDS: LORazepam 0.5 mg Tablet PO (23:05)
[2019-10-16] MEDS: sodium chloride 0.9% 1,000 ML 100 ML IV (23:06)
[2019-10-16] MEDS: cefepime 1,000 MG in sodium chloride 0.9% (plus) 50 ML 100 MG IV (23:06)
[2019-10-16 23:49] LABS: Lactic Acid level (Lactate) 1.6 mmol/L (0.5-2.2)
[2019-10-17] VITALS: BP 110/76; PULSE 93; RESP 20; TEMP 36.7; O2SAT 94
[2019-10-17 04:16] VITALS: BP 106/69; PULSE 93; RESP 24; TEMP 37.3; O2SAT 98
[2019-10-17 05:02] LABS: Eosinophils % 1.6 %; Hematocrit 22.9 % (37.0-47.0); Hemoglobin 7.1 g/dL (11.5-15.3); Lymphocytes # 0.4 10^3/uL (0.8-4.8); Lymphocytes % 68.8 %; Mean Corpuscular Hemoglobin 32.6 pg (28.0-34.0); Mean Platelet Volume 10.4 fL (7.4-10.4); Monocytes # 0.2 10^3/uL (0.2-0.9); Neutrophils % 4.6 %; Nucleated Red Blood Cells % 0 %; Red Blood Count 2.18 10^6/uL (4.1-5.3); Red Cell Distribution Width 17.5 % (12.1-15.1)
[2019-10-17 05:32] LABS: Alanine Aminotransferase 30 U/L (0-33); Albumin Level 2.9 g/dL (3.5-5.2); Alkaline Phosphatase 110 IU/L (35-105); Anion Gap 13.7 (5-19); Aspartate Amino Transferase 33 U/L (0-32); Blood Urea Nitrogen 24 mg/dL (8-23); Calcium 7.5 mg/dL (8.5-10.5); Carbon Dioxide 24 mmol/L (22-29); Chloride 102 mmol/L (98-107); Creatinine Clr Calc Pharmacy 70.0695; Globulin 3.3 g/dL (1.3-4.6); Glomerular Filtration Rate 83.5 mL/min (90-130); Glucose 108 mg/dL (65-115); Osmolality Calculated 279 mOsm/kg (285-295); Potassium 3.7 mmol/L (3.5-5.1); Sodium 136 mmol/L (136-145); Total Bilirubin 1.1 mg/dL (0.15-1.2); Total Protein 6.2 g/dL (6.6-8.7)
[2019-10-17 05:49] LABS: Slide Review Slide Review Perform
[2019-10-17 05:50] LABS: Neutrophils # 0.03 10^3/uL (1.8-7.7); Platelet Count 27 10^3/cmm (130-400); White Blood Count 0.6 10^3/uL (4.0-10.0)
[2019-10-17 07:56] VITALS: BP 102/68; PULSE 100; RESP 18; TEMP 36.6; O2SAT 97
[2019-10-17] MEDS: cefepime 1,000 MG in sodium chloride 0.9% (plus) 50 ML 100 MG IV ×2 (09:59→23:20)
[2019-10-17] MEDS: pantoprazole DR 40 mg Tablet PO (10:01)
[2019-10-17] MEDS: sennosides-docusate Tablet 1 TAB PO (10:02)
[2019-10-17] MEDS: apixaban 5 mg Tablet PO (10:02)
[2019-10-17] MEDS: cyanocobalamin 1,000 mcg Tablet 1000 MCG PO (10:02)
[2019-10-17] MEDS: gabapentin 300 mg Capsule 600 MG PO ×3 (10:02→23:22)
[2019-10-17] MEDS: nystatin powder 15 gm Btl 1 APPLIC TOPICAL (10:04)
[2019-10-17] MEDS: magnesium oxide 400 mg tablet PO ×2 (10:04→18:02)
[2019-10-17] MEDS: sodium chloride 0.9% 1,000 ML 100 ML IV (10:10)
[2019-10-17 11:03] VITALS: BP 92/64; PULSE 99; RESP 17; TEMP 36.8; O2SAT 98
[2019-10-17 11:16] LABS: INR 1.37 (0.8-1.2)
[2019-10-17 11:17] LABS: Partial Thromboplastin Time 39.5 SECONDS (23.9-36.7)
[2019-10-17 11:28] LABS: D Dimer 9.56 ug/mIFEU (0-0.59)
--- NOTE | 2019-10-17 12:01 | P.PN_ITS ---
Subjective Subjective: Interval history: Patient denies shortness of breath, chest pain or abdominal pain. She is lethargic. Her hemoglobin is down to 7.1 and platelets down to 27. White blood cell count remains 0.6. Patient with metastatic breast cancer with previous history of bilateral mast ectomy presented with abdominal pain and generalized weakness. She denies abdominal pain today. She has chest wall opening with tunneling and purulent material expressed with minimal pressure. Patient received chemotherapy on October 09 followed by Donna. Vitals/I&O/Wt Last Vital Signs Temp 98.3 F 10/17/19 11:03 Pulse 99 10/17/19 11:03 Resp 17 10/17/19 11:03 BP 92/64 10/17/19 11:03 Pulse Ox 98 10/17/19 11:03 10/16/19 10/17/19 10/17/19 22:59 06:59 14:59 Intake Total 700 / 700 290 / 990 1060 / 1060 Output Total 200 / 200 Balance 700 / 700 90 / 790 1060 / 1060 Weight last 48 hrs Weight 77.111 kg Physical Exam Const: COMMON NORMALS: no acute distress and patient oriented x3 Resp: COMMON NORMALS: normal respiratory effort and clear to auscultation bilaterally AUSCULTATION: clear to auscultation bilaterally Cardio: COMMON NORMALS: regular rate, regular rhythm and S2 normal heart sound present RATE: regular rate RHYTHM: regular rhythm HEART SOUNDS: S2 normal heart sound present OTHER: No lower extremity edema GI: COMMON NORMALS: Normal to inspection, nondistended, normoactive bowel sounds present, Soft to palpation and non-tender PALPATION: Yes Soft to palpation Neuro: COMMON NORMALS: patient oriented x3 and no focal motor deficits Skin: NARRATIVE SKIN EXAM: Left chest opening with draining purulent material. Some surrounding erythema versus chronic changes noted. This appears to be at least partially related to invasive malignancy. Data : 10/17/19 04:35 10/17/19 04:35 Micro: Microbiology 10/17/19 10:38 Blood Culture - Preliminary Blood SPECIMEN COLLECTED 10/17/19 10:43 Blood Culture - Preliminary Blood SPECIMEN COLLECTED A&P Assessment and plan (1) Neutropenia: Status: Acute (2) Pancytopenia: Status: Acute (3) Weakness: Status: Acute (4) Cellulitis: Of left chest with underlying abscess and purulent drainage. Status: Acute (5) Abnormal transaminases: Status: Acute (6) Syncope: Status: Acute Additional A&P Information Severe neutropenia with underlying pancytopenia It seems to be drug-induced/chemotherapy-induced pancytopenia She will need Neupogen, will touch base with Dr. Sainz in the morning, currently for her purulent cellulitis I would start her on vancomycin and cefepime for MRSA and antipseudomonal coverage, keep her on normal saline maintenance fluid rate Reverse isolation Blood cultures obtained Lactic acid trended down after fluid resuscitation Not septic Syncopal event I do suspect severe dehydration to be the cause of syncopal event, EKG showing sinus rhythm, no arrhythmia noted, no chest pain or palpitations, troponin trending down, her lactic acid trended down significantly after fluid resuscitation, clinically she looks dry, at home she has been taking Lasix, she is consistent with her Eliquis, no lower extremity swelling, patient is not tachycardic or hypoxic, low risk for PE at this point, I highly doubt will be able to obtain echo because of left chest wall tunneled wound and purulent cellulitis UTI: Patient is complaining of urinary frequency however denying dysuria Would obtain urinalysis and urine culture Purulent cellulitis of left chest wall Purulent drainage of tunneled wound which seems to be secondary to cancer metastases MRSA and antipseudomonal coverage started High risk for sepsis and septic shock considering pancytopenia Cellulitis of lower abdominal wall with intertrigo, topical antifungal Abnormal transaminases with high alkaline phosphatase seems secondary to hepatic metastases, abdominal imaging showing multiple metastases Patient is full code For previous history of PE patient is currently on Eliquis which I would continue for now No need of DVT prophylaxis because of use of Eliquis Neutropenic diet PLAN: Obtain CT scan of the chest to further evaluate size of abscess/tunneling and if there is any drainable pocket. Discussed with Dr. Hernández to evaluate the patient for drainage once her neutropenia resolves. Continue antibiotics and fluids but change normal saline to LR. Monitor CBC and consider blood product transfusion if needed. Avoid any antiplatelet or anticoagulation medications. Attestations Medical Necessity Statement*: Patient with severe pancytopenia and neutropenia requires close inpatient monitoring and treatment Time Spent in Patient Care: 16 - 35 minutes Coding Level of Care Code Acute Diet Supervisor for Chg Fwd Diagnoses Neutropenia D70.9 Pancytopenia D61.818 Weakness R53.1 Cellulitis L03.90 Abnormal transaminases R74.8 Syncope R55
[2019-10-17 12:11] LABS: Fibrinogen 776 mg/dL (174-498)
--- NOTE | 2019-10-17 12:14 | CT_ITS ---
WS: [id number] CT CHEST WITH INTRAVENOUS CONTRAST HISTORY: Chest wall abscess TECHNIQUE: Contiguous 5 mm axial imaging performed on the thorax. Coronal and sagittal reformats are submitted. All CT scans at [facility] use at least one of these dose optimization techniq ues: automated exposure control; mA and/or kV adjustment per patient size (includes targeted exams wh ere dose is matched to clinical indication); or iterative reconstruction. CONTRAST: Omnipaque 300; 95 mL IV. DLP: 581.95 mGy.cm COMPARISON: 07/18/2017 Lungs and central airway: Pleural based nodule measures 11 mm in the anterior RIGHT upper lobe. New n odule since 07/18/2017. Slightly progressed in size since the CT of 09/29/2019. Positive on the recent P ET/CT. Pleura: Very small pleural thickening at the lung bases. Heart and pericardium: Moderately enlarged cardiac chambers. No pericardial effusion. Mediastinum and marianela: No mediastinum or hilar adenopathy. Vessels: Atherosclerosis aorta. No aneurysm. Pulmonary artery size is normal. Chest wall and lower neck: RIGHT subclavian Port-A-Cath is present. There is extensive soft tissue th ickening with induration and mild enhancement involving the soft tissues over the LEFT anterior chest wall at the site of the prior mastectomy. The previously described large collection is no longer pre sent. There is a large amount of air in the central portion of this cavity with a large defect centra lly suggesting debridement. Extensive soft tissue cavity extends over a length of at least 11 cm with wall thickening. There is no drainable fluid collection. Upper abdomen: Numerous nodules of various sizes throughout the liver consistent with diffuse metasta tic disease. The largest metastatic lesion in the RIGHT lobe measures 18 mm. Caudate metastatic site measures 2.2 cm. No bile duct dilatation. There are a few scattered hypodensities in the spleen also which are probably metastatic areas. No adrenal mass. Patient has known allyn hepatis and aortocaval lymphadenopathy which was recently described on CT of the abdomen. Osseous structures: Increase in thoracic kyphosis. Patient has known metastatic bone disease. There i s rapid and spine involvement. CT/CT chest w con* [id number] IMPRESSION: 1. Large area soft tissue inflammation with soft tissue thickening and air harlan tered over the LEFT chest at the site of the prior mastectomy. Within the centr al soft tissue there is a gap which suggested there may have been interval debr idement. No surgical clips are evident. There is a large amount of air but no f ocal drainable collection. 2. Metastatic deposit in the anterior RIGHT upper lobe measures 11 mm with sli ght increase in size since the PET/CT. 3. Patient has known diffuse metastatic disease throughout the liver. 4. Patient has known metastatic bone disease. 5. Allyn hepatis and retroperitoneal adenopathy.
--- NOTE | 2019-10-17 13:43 | PC.NURSE ---
Patient to CT scan at this time.
[2019-10-17] MEDS: lactated ringers 1,000 ML 125 ML IV ×2 (14:10→23:20)
[2019-10-17 15:20] VITALS: BP 104/69; PULSE 102; RESP 18; TEMP 36.8; O2SAT 95
[2019-10-17 16:49] LABS: Add Urine Microscopic? YES; Bilirubin Urine Neg (NEGATIVE); Blood Urine 2+ (Negative); Glucose Urine UA Norm (Normal); Ketones Urine Negative (Negative); Leukocyte Esterase Urine Negative (Negative); Nitrate Urine Negative (Negative); Protein Urine Trace (Negative); Specific Gravity, Urine 1.005 (1.005-1.030); Urine Appearance SL Hazy (CLEAR); Urine Color Yellow (Yellow); Urobilinogen Urine 1 mg/dL (Negative); pH Urine 6.5 (5-7)
[2019-10-17 16:50] LABS: Add Urine Culture? No; Bacteria Urine 1+; Squamous Epithelial Cell Urine 15-25 (0-5); WBC Urine 0-4 /hpf (0-5)
--- NOTE | 2019-10-17 17:45 | PM.CONSULT ---
Providers/Reason For Consult Consulting Physican/Specialty*: Jd Dawson MD Reason for Consult*: Left upper chest wall wound Attending Physician: Tera Grimaldo MD Primary Care Provider: REY Patten History of Present Illness History of Present Illness Chief Complaint: Chest wall wound History of present illness:MS Luiza Salmon is a pleasent 69 year old female presents with history of bilateral breast cancer and undergone a bilateral mastectomy with that regard, patient did develop left upper chest wall wound that has been there for at least 6 months and according to patient's description she had a PET CT scan that was proved to be positive at the same spot and to her knowledge she never had a biopsy of the wound before, patient is currently having neutropenia with reversal precaution and general surgery was consulted for further evaluation of the wound CT scan of the chest: 1. Large area soft tissue inflammation with soft tissue thickening and air centered over the LEFT chest at the site of the prior mastectomy. Within the central soft tissue there is a gap which suggested there may have been interval debridement. No surgical clips are evident. There is a large amount of air but no focal drainable collection. 2. Metastatic deposit in the anterior RIGHT upper lobe measures 11 mm with slight increase in size since the PET/CT. 3. Patient has known diffuse metastatic disease throughout the liver. 4. Patient has known metastatic bone disease. 5. Saw hepatis and retroperitoneal adenopathy. Review of Systems General: Reports: 10 or more systems reviewed and unremarkable except in HPI and below Meds/Allergies Home Medications and Allergies Home Medications Medication Instructions Recorded Confirmed Last Taken Type apixaban [Eliquis] 5 mg PO BID 10/16/19 10/16/19 10/15/19 History calcium carbonate-vitamin D3 1 tab PO BID 10/16/19 10/16/19 10/15/19 History [Oyster Shell Calcium-Vit D3] cyanocobalamin (vitamin B-12) 1,000 mcg PO DAILY 10/16/19 10/16/19 Unknown History [Vitamin B-12] ergocalciferol (vitamin D2) 50,000 unit PO Q30D 10/16/19 10/16/19 Unknown History [Vitamin D2] furosemide 40 mg PO DAILY 10/16/19 10/16/19 Unknown History gabapentin 600 mg PO TID 10/16/19 10/16/19 Unknown History levofloxacin 500 mg PO DAILY 10/16/19 10/16/19 10/15/19 History lorazepam 0.5 mg PO BEDTIME 10/16/19 10/16/19 Unknown History magnesium oxide 400 mg PO BID 10/16/19 10/16/19 Unknown History morphine 30 mg PO QID PRN 10/16/19 10/16/19 Unknown History morphine 100 mg PO Q12H 10/16/19 10/16/19 Unknown History ondansetron HCl [Zofran] 4 - 8 mg PO Q4H PRN 10/16/19 10/16/19 Unknown History pantoprazole 40 mg PO DAILY 10/16/19 10/16/19 10/15/19 History potassium chloride 10 meq PO BID 10/16/19 10/16/19 10/15/19 History Allergies Allergy/AdvReac Type Severity Reaction Status Date / Time No Known Allergies Allergy Verified 10/17/19 17:46 Current Medications Current Medications Generic Name Dose Route Start Last Admin Trade Name Freq PRN Reason Stop Dose Admin Cyanocobalamin 1,000 mcg 10/17/19 09:00 10/17/19 10:02 Vitamin B-12 PO 1,000 mcg DAILY JANE Administration Gabapentin 600 mg 10/16/19 21:00 10/17/19 14:12 Neurontin PO 600 mg TID JANE Administration Cefepime HCl 1,000 mg/ Sodium 50 mls @ 100 mls/hr 10/16/19 21:00 10/17/19 09:59 Chloride IV 100 mls/hr Q12H JANE Administration Protocol Vancomycin HCl 1,500 mg/ 250 mls @ 250 mls/hr 10/16/19 22:00 10/16/19 23:56 Sodium Chloride IV 250 mls/hr Q24H JANE Administration Protocol As Directed Lactated Ringer's 1,000 mls @ 125 mls/hr 10/17/19 12:30 10/17/19 14:10 Lactated Ringers IV 125 mls/hr .Q8H JANE Administration Lorazepam 0.5 mg 10/16/19 21:00 10/16/19 23:05 Ativan PO 0.5 mg BEDTIME JANE Administration Magnesium Oxide 400 mg 10/17/19 09:00 10/17/19 10:04 Magox PO 400 mg BID JANE Administration Morphine Sulfate 30 mg 10/16/19 20:33 10/16/19 23:04 Msir PO 30 mg TID PRN Administration Pain Morphine Sulfate 100 mg 10/16/19 20:33 10/17/19 10:07 Ms Contin PO Not Given Q12H JANE Nystatin 1 applic 10/17/19 09:00 10/17/19 10:04 Nystatin Powder TOPICAL 1 applic BID JANE Administration Pantoprazole Sodium 40 mg 10/17/19 09:00 10/17/19 10:01 Protonix PO 40 mg DAILY JANE Administration Senna/Docusate Sodium 1 tab 10/17/19 09:00 10/17/19 10:02 Senna-S PO 1 tab DAILY JANE Administration PFSH Acute PFSH: Medical History Antineoplastic chemotherapy induced anemia Bakers cyst Breast cancer metastasized to bone Stage IIIb ER [place] negative 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, 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 positive IA negative HER-2 negative stage IV metastatic to bone H/O drainage of abscess Left thigh abscess drainage x2 with superficial venous thrombosis History of small bowel obstruction Hypertension Hypertension Osteoarthritis Osteoporosis Port-A-Cath in place Surgical History History of bilateral mastectomy History of modified radical mastectomy of left breast Family History Sister Cancer Sister had cervical cancer no other family with known breast cancer Social History Smoking and tobacco status: former smoker Alcohol intake: never Household members: family Housing: House Vitals/I&O/Wt Last Vital Signs Temp 98.2 F 10/17/19 15:20 Pulse 102 H 10/17/19 15:20 Resp 18 10/17/19 15:20 BP 104/69 10/17/19 15:20 Pulse Ox 95 10/17/19 15:20 10/17/19 10/17/19 10/17/19 06:59 14:59 22:59 Intake Total 290 / 990 1060 / 1060 240 / 1300 Output Total 200 / 200 Balance 90 / 790 1060 / 1060 240 / 1300 Weight last 48 hrs Weight 170 lb Physical Exam Narrative: EXAM NARRATIVE: Patient is conscious alert oriented X3 BMI 28.3 Head and neck examination PERRLA no masses no cervical lymphadenopathy no jaundice Cardiac examination audible S1-S2 no murmurs no gallops no arrhythmias Chest is clear bilateral,abscence of Rhonchi or wheezes,no surgical emphysema Lateral chest wall examination in the presence of patient's nurse Kristie revealed an indurated fibrotic area on the lateral chest wall status post mastectomy ranging diameter between 15 to 20 cm with a central ulcer 2 x 2 centimeter with indurated edges with minimal necrosis and serous fluid appreciated from the ulcer site likely from the underlying cavity, clinically to me the wound is concerning for cancerous process. Right upper chest Port-A-Cath in place Abdomen nontender nondistended soft no organomegaly guarding or rigidity/no signs of peritonitis Right groin excoriation, shingles is a concern Data Micro: Micro: Microbiology 10/17/19 10:38 Blood Culture - Pr eliminary Blood SPECIMEN [facility] 10/17/19 10:43 Blood Culture - Pr eliminary Blood SPECIMEN [facility] A&P Assessment and plan (1) Open wound of chest (wall), complicated: After history taking physical examination and reviewing the chart with my personal interpretation of the CT scan images, patient does have a chronic wound likely involving recurrence of neoplastic process, packing of the wound with 1 inch Nu Gauze circumferentially at least once a day and covered with ABD would be appropriate. I would not recommend surgical debridement at this point Right groin application of antibiotic cream once a day and application of gauze Assurance and education All questions have been answered and all concerns have been addressed to patient's satisfaction. Status: Acute Consult Attestations Medical Necessity Statement: Medical necessity care is expected to cross 2 midnights Time Spent in Patient Care: (>than 50% of time spent in counselling and/or direct pt care on unit). Coding Level of Care Code Acute Trim Technician for Kriss Fwd Diagnoses Open wound of chest (wall), complicated S21.109A
[2019-10-17 20:00] VITALS: BP 92/65; PULSE 106; RESP 24; TEMP 37.5; O2SAT 100
[2019-10-17] MEDS: LORazepam 0.5 mg Tablet PO (23:22)
[2019-10-18] VITALS (18 sets, daily range): BP systolic 90–106; BP diastolic 56–96; PULSE 60–102; RESP 15–20; TEMP 36.6–37.7; O2SAT 94–98
[2019-10-18] MEDS: cefepime 1,000 MG in sodium chloride 0.9% (plus) 50 ML 100 MG IV ×2 (08:23→22:20)
[2019-10-18] MEDS: cyanocobalamin 1,000 mcg Tablet 1000 MCG PO (08:24)
[2019-10-18] MEDS: magnesium oxide 400 mg tablet PO ×2 (08:24→17:39)
[2019-10-18] MEDS: gabapentin 300 mg Capsule 600 MG PO ×3 (08:24→22:19)
[2019-10-18] MEDS: sennosides-docusate Tablet 1 TAB PO (08:24)
[2019-10-18] MEDS: pantoprazole DR 40 mg Tablet PO (08:24)
[2019-10-18] MEDS: lactated ringers 1,000 ML 125 ML IV ×2 (10:23→18:41)
[2019-10-18 10:30] LABS: Basophils % 0.5 %; Eosinophils % 0.5 %; Lymphocytes # 0.6 10^3/uL (0.8-4.8); Lymphocytes % 29.3 %; Mean Corpuscular Volume 106.3 fL (81-99); Monocytes # 0.5 10^3/uL (0.2-0.9); Monocytes % 23.9 %; Neutrophils % 44.7 %; Nucleated Red Blood Cells % 0 %; Red Blood Count 1.91 10^6/uL (4.1-5.3); Red Cell Distribution Width 17.6 % (12.1-15.1); White Blood Count 1.9 10^3/uL (4.0-10.0)
--- NOTE | 2019-10-18 10:33 | PM.PN ---
Subjective Subjective: Interval history: Patient reports feeling better this morning. Denies shortness of breath or chest pain. Denies any pain. Her white blood cell count improved to 1.9 this morning but hemoglobin is down to 6.3 along with platelets down to 22. Vitals/I&O/Wt Last Vital Signs Temp 98.4 F 10/18/19 07:40 Pulse 89 10/18/19 07:40 Resp 16 10/18/19 07:40 BP 90/56 10/18/19 07:40 Pulse Ox 98 10/18/19 07:40 10/17/19 10/18/19 10/18/19 22:59 06:59 14:59 Intake Total 1240 / 2350 50 / 2400 1240 / 1240 Output Total 300 / 300 300 / 600 Balance 940 / 2050 -250 / 1800 1240 / 1240 Weight last 48 hrs Weight 77.111 kg Physical Exam Const: COMMON NORMALS: no acute distress and patient oriented x3 Resp: COMMON NORMALS: normal respiratory effort and clear to auscultation bilaterally AUSCULTATION: clear to auscultation bilaterally Cardio: COMMON NORMALS: regular rate, regular rhythm and S2 normal heart sound present RATE: regular rate RHYTHM: regular rhythm HEART SOUNDS: S2 normal heart sound present OTHER: No lower extremity edema GI: COMMON NORMALS: Normal to inspection, nondistended, normoactive bowel sounds present, Soft to palpation and non-tender PALPATION: Yes Soft to palpation Neuro: COMMON NORMALS: patient oriented x3 and no focal motor deficits Skin: NARRATIVE SKIN EXAM: Left chest opening with draining purulent material. Some surrounding erythema versus chronic changes noted. This appears to be at least partially related to invasive malignancy. Data : 10/18/19 09:57 10/18/19 09:57 Micro: Microbiology 10/17/19 10:38 Blood Culture - Preliminary Blood SPECIMEN COLLECTED 10/17/19 10:43 Blood Culture - Preliminary Blood SPECIMEN COLLECTED A&P Assessment and plan (1) Neutropenia: Status: Acute (2) Pancytopenia: Status: Acute (3) Weakness: Status: Acute (4) Cellulitis: Of left chest with underlying abscess and purulent drainage. Status: Acute (5) Abnormal transaminases: Status: Acute (6) Syncope: Status: Acute Additional A&P Information Severe neutropenia with underlying pancytopenia It seems to be drug-induced/chemotherapy-induced pancytopenia She will need Neupogen, will touch base with Dr. Sainz in the morning, currently for her purulent cellulitis I would start her on vancomycin and cefepime for MRSA and antipseudomonal coverage, keep her on normal saline maintenance fluid rate Reverse isolation Blood cultures obtained Lactic acid trended down after fluid resuscitation Not septic Syncopal event I do suspect severe dehydration to be the cause of syncopal event, EKG showing sinus rhythm, no arrhythmia noted, no chest pain or palpitations, troponin trending down, her lactic acid trended down significantly after fluid resuscitation, clinically she looks dry, at home she has been taking Lasix, she is consistent with her Eliquis, no lower extremity swelling, patient is not tachycardic or hypoxic, low risk for PE at this point, I highly doubt will be able to obtain echo because of left chest wall tunneled wound and purulent cellulitis UTI: Patient is complaining of urinary frequency however denying dysuria Would obtain urinalysis and urine culture Purulent cellulitis of left chest wall Purulent drainage of tunneled wound which seems to be secondary to cancer metastases MRSA and antipseudomonal coverage started High risk for sepsis and septic shock considering pancytopenia Cellulitis of lower abdominal wall with intertrigo, topical antifungal Abnormal transaminases with high alkaline phosphatase seems secondary to hepatic metastases, abdominal imaging showing multiple metastases Patient is full code For previous history of PE patient is currently on Eliquis which I would continue for now No need of DVT prophylaxis because of use of Eliquis Neutropenic diet PLAN: Discussed with Dr. Hernández today. No surgical intervention is recommended even after neutropenia is resolved. We will continue current antibiotics. We will give patient 2 units of PRBC and further monitor platelets. Patient does not appear to be in DIC. Her INR is 1.37 therefore we will give 5 mg vitamin K. Will consider outpatient follow-up with wound care clinic post discharge. Attestations Medical Necessity Statement*: Patient with pancytopenia including neutropenia postchemotherapy requires close inpatient monitoring and treatment. Time Spent in Patient Care: 16 - 35 minutes Coding Level of Care Code Acute Tower Air Traffic Control Specialist for g Fwd Diagnoses Neutropenia D70.9 Pancytopenia D61.818 Weakness R53.1 Cellulitis L03.90 Abnormal transaminases R74.8 Syncope R55
[2019-10-18 10:40] LABS: Hematocrit 20.3 % (37.0-47.0); Hemoglobin 6.3 g/dL (11.5-15.3); Platelet Count 22 10^3/cmm (130-400)
[2019-10-18 10:41] LABS: Neutrophils # 0.84 10^3/uL (1.8-7.7); Slide Review Slide Review Perform
[2019-10-18 10:50] LABS: Alanine Aminotransferase 20 U/L (0-33); Albumin Level 2.4 g/dL (3.5-5.2); Alkaline Phosphatase 97 IU/L (35-105); Anion Gap 14.4 (5-19); Aspartate Amino Transferase 22 U/L (0-32); Blood Urea Nitrogen 16 mg/dL (8-23); Calcium 7.1 mg/dL (8.5-10.5); Carbon Dioxide 21 mmol/L (22-29); Chloride 98 mmol/L (98-107); Creatinine Clr Calc Pharmacy 70.0695; Globulin 3.1 g/dL (1.3-4.6); Glomerular Filtration Rate 99.7 mL/min (90-130); Glucose 136 mg/dL (65-115); Osmolality Calculated 268 mOsm/kg (285-295); Potassium 3.4 mmol/L (3.5-5.1); Sodium 130 mmol/L (136-145); Total Bilirubin 1.2 mg/dL (0.15-1.2); Total Protein 5.5 g/dL (6.6-8.7)
[2019-10-18] MEDS: neomycin-poly-bacitracin oint 28 gm 1 APPLIC TOPICAL (11:30)
[2019-10-18] MEDS: phytonadione (ADULT) 10 mg/mL Ampule 1 mL 5 MG PO (13:11)
[2019-10-18] MEDS: sodium chloride 0.9% (100 ml) 100 ML 50 ML ×2 (15:21→18:34)
[2019-10-18] MEDS: bacitracin ointment 28 gm 1 APPLIC TOPICAL (17:38)
[2019-10-18] MEDS: LORazepam 0.5 mg Tablet PO (22:19)
[2019-10-18] MEDS: morphine ER (12 HR) 100 mg Tablet PO (22:57)
[2019-10-19] VITALS (11 sets, daily range): BP systolic 94–119; BP diastolic 60–77; PULSE 78–88; RESP 7–20; TEMP 36.4–37; O2SAT 94–100
[2019-10-19] MEDS: lactated ringers 1,000 ML 125 ML IV ×3 (02:45→18:16)
[2019-10-19 05:14] LABS: Basophils # 0.1 10^3/uL (0.0-0.1); Basophils % 1.3 %; Eosinophils % 0.3 %; Hematocrit 25.3 % (37.0-47.0); Hemoglobin 8.4 g/dL (11.5-15.3); Lymphocytes # 0.9 10^3/uL (0.8-4.8); Lymphocytes % 23.2 %; Mean Corpuscular HGB Conc 33.2 g/dL (30.0-36.0); Mean Corpuscular Hemoglobin 32.6 pg (28.0-34.0); Mean Corpuscular Volume 98.1 fL (81-99); Monocytes # 0.4 10^3/uL (0.2-0.9); Monocytes % 10.5 %; Neutrophils # 2.47 10^3/uL (1.8-7.7); Neutrophils % 62.9 %; Nucleated Red Blood Cells % 0 %; Red Blood Count 2.58 10^6/uL (4.1-5.3); Red Cell Distribution Width 17.5 % (12.1-15.1); White Blood Count 3.9 10^3/uL (4.0-10.0)
[2019-10-19 05:45] LABS: Alanine Aminotransferase 17 U/L (0-33); Albumin Level 2.3 g/dL (3.5-5.2); Alkaline Phosphatase 97 IU/L (35-105); Anion Gap 10.2 (5-19); Aspartate Amino Transferase 27 U/L (0-32); Blood Urea Nitrogen 11 mg/dL (8-23); Calcium 7.3 mg/dL (8.5-10.5); Carbon Dioxide 26 mmol/L (22-29); Chloride 103 mmol/L (98-107); Creatinine Clr Calc Pharmacy 70.0695; Globulin 2.8 g/dL (1.3-4.6); Glomerular Filtration Rate 99.7 mL/min (90-130); Glucose 86 mg/dL (65-115); Osmolality Calculated 277 mOsm/kg (285-295); Potassium 3.2 mmol/L (3.5-5.1); Sodium 136 mmol/L (136-145); Total Bilirubin 1.3 mg/dL (0.15-1.2); Total Protein 5.1 g/dL (6.6-8.7)
[2019-10-19 05:54] LABS: Slide Review Slide Review Perform
[2019-10-19 05:55] LABS: Platelet Count 23 10^3/cmm (130-400)
--- NOTE | 2019-10-19 08:00 | PC.NURSE ---
pt lethargic this morning and was unable to hold her water and pill cup by herself this morning. dressing to right abdomen changed with some bloody drainage. dressing to left chest change with some serous drainage.
[2019-10-19] MEDS: cefepime 1,000 MG in sodium chloride 0.9% (plus) 50 ML 100 MG IV ×2 (08:09→23:22)
[2019-10-19] MEDS: magnesium oxide 400 mg tablet PO ×2 (08:10→17:59)
[2019-10-19] MEDS: pantoprazole DR 40 mg Tablet PO (08:10)
[2019-10-19] MEDS: sennosides-docusate Tablet 1 TAB PO (08:10)
[2019-10-19] MEDS: gabapentin 300 mg Capsule 600 MG PO ×3 (08:10→23:24)
[2019-10-19] MEDS: cyanocobalamin 1,000 mcg Tablet 1000 MCG PO (08:10)
[2019-10-19] MEDS: bacitracin ointment 28 gm 1 APPLIC TOPICAL ×2 (08:11→17:59)
--- NOTE | 2019-10-19 11:10 | PC.OT ---
OT tx attempted. Nursing reports pt unresponsive to their stimulus at this time. OT tx withheld. Will attempt again tomorrow.
[2019-10-19 11:27] LABS: Glucose Point of Care 107 mg/dL (70-110)
--- NOTE | 2019-10-19 11:28 | PC.PHAR ---
Patient SCr has improved from dosing 1.6 to 0.6. Changed dose from 1500 q24 to 1000 q12h trough before 3rd dose will give us an idea if in/out of range
--- NOTE | 2019-10-19 11:29 | PM.PN ---
Subjective Subjective: Interval history: Patient is somnolent this morning. She denies shortness of breath or chest pain denies abdominal pain. Reported that she is not in any pain at all. She received Ativan and morphine last night. She was able to open her eyes and answer questions appropriately during my evaluation. She was closely monitored and at this point noted to have respirations at 6. Narcan is being prepared. Her labs are improving. Neutropenia resolved. Platelets appear to plateau. Hemoglobin responded well to 1 unit and is up to 8.4. Vitals/I&O/Wt Last Vital Signs Temp 98.2 F 10/19/19 07:58 Pulse 87 10/19/19 07:58 Resp 15 10/19/19 07:58 BP 99/66 10/19/19 07:58 Pulse Ox 94 10/19/19 07:58 10/18/19 10/19/19 10/19/19 22:59 06:59 14:59 Intake Total 1960 / 3490 1000 / 4490 550 / 550 Balance 1960 / 3490 1000 / 4490 550 / 550 Physical Exam Const: COMMON NORMALS: no acute distress and patient oriented x3 Resp: COMMON NORMALS: normal respiratory effort and clear to auscultation bilaterally AUSCULTATION: clear to auscultation bilaterally Cardio: COMMON NORMALS: regular rate, regular rhythm and S2 normal heart sound present RATE: regular rate RHYTHM: regular rhythm HEART SOUNDS: S2 normal heart sound present OTHER: No lower extremity edema GI: COMMON NORMALS: Normal to inspection, nondistended, normoactive bowel sounds present, Soft to palpation and non-tender PALPATION: Yes Soft to palpation Neuro: COMMON NORMALS: patient oriented x3 and no focal motor deficits Skin: NARRATIVE SKIN EXAM: Left chest opening with draining purulent material. Some surrounding erythema versus chronic changes noted. This appears to be at least partially related to invasive malignancy. Data : 10/19/19 04:32 10/19/19 04:32 Micro: Microbiology 10/17/19 10:38 Blood Culture - Preliminary Blood NEGATIVE TO DATE 10/17/19 10:43 Blood Culture - Preliminary Blood NEGATIVE TO DATE A&P Assessment and plan (1) Neutropenia: Status: Acute (2) Pancytopenia: Status: Acute (3) Weakness: Status: Acute (4) Cellulitis: Of left chest with underlying abscess and purulent drainage. Status: Acute (5) Abnormal transaminases: Status: Acute (6) Syncope: Status: Acute Additional A&P Information Severe neutropenia with underlying pancytopenia It seems to be drug-induced/chemotherapy-induced pancytopenia She will need Neupogen, will touch base with Dr. Sainz in the morning, currently for her purulent cellulitis I would start her on vancomycin and cefepime for MRSA and antipseudomonal coverage, keep her on normal saline maintenance fluid rate Reverse isolation Blood cultures obtained Lactic acid trended down after fluid resuscitation Not septic Syncopal event I do suspect severe dehydration to be the cause of syncopal event, EKG showing sinus rhythm, no arrhythmia noted, no chest pain or palpitations, troponin trending down, her lactic acid trended down significantly after fluid resuscitation, clinically she looks dry, at home she has been taking Lasix, she is consistent with her Eliquis, no lower extremity swelling, patient is not tachycardic or hypoxic, low risk for PE at this point, I highly doubt will be able to obtain echo because of left chest wall tunneled wound and purulent cellulitis UTI: Patient is complaining of urinary frequency however denying dysuria Would obtain urinalysis and urine culture Purulent cellulitis of left chest wall Purulent drainage of tunneled wound which seems to be secondary to cancer metastases MRSA and antipseudomonal coverage started High risk for sepsis and septic shock considering pancytopenia Cellulitis of lower abdominal wall with intertrigo, topical antifungal Abnormal transaminases with high alkaline phosphatase seems secondary to hepatic metastases, abdominal imaging showing multiple metastases Patient is full code For previous history of PE patient is currently on Eliquis which I would continue for now No need of DVT prophylaxis because of use of Eliquis Neutropenic diet PLAN: We will proceed with Narcan and reevaluate her response. We will go ahead and discontinue morphine and Ativan until patient's mental status improves. Will keep on continuous pulse ox for now. Attestations Medical Necessity Statement*: Patient with significant infection and immunosuppression postchemotherapy requires close inpatient monitoring and treatment. Time Spent in Patient Care: 16 - 35 minutes Coding Level of Care Code Acute Inclusion Internship for g Fwd Diagnoses Neutropenia D70.9 Pancytopenia D61.818 Weakness R53.1 Cellulitis L03.90 Abnormal transaminases R74.8 Syncope R55
[2019-10-19] MEDS: naloxone 0.4 mg/ml SDV IVP ×4 (11:32→18:31)
[2019-10-19] MEDS: ondansetron 2 mg/ML SDV 2 mL 4 MG IVP (11:54)
[2019-10-19] MEDS: lidocaine 1% INJ 20 mL 5 ML INJECTION (11:54)
[2019-10-19] MEDS: potassium chloride premix 40 MEQ/100 ML PREMIX 25 MEQ IV (11:54)
[2019-10-19] MEDS: vancomycin 1,000 MG in sodium chloride 0.9% 250 ML 250 MG IV (12:46)
[2019-10-19] MEDS: nystatin powder 15 gm Btl 1 APPLIC TOPICAL (17:59)
--- NOTE | 2019-10-19 18:22 | PC.NURSE ---
shift summary pt lethargic all throughout the day. respiratory rate began to drop below 10 this afternoon and per MD, gave narcan 0.4mg IVP PRN Q2h for RR below 10. a total of 4 doses of narcan given today. when awake, pt is A/Ox4. pt refusing meals, but this pm, she was able to eat some yogurt and drink 200mls. dressing on left chest and on right groin changed and patient tolerated well.
[2019-10-20] VITALS (10 sets, daily range): BP systolic 96–108; BP diastolic 62–70; PULSE 65–84; RESP 12–18; TEMP 36.3–37.1; O2SAT 94–99
[2019-10-20 00:50] LABS: Basophils # 0.1 10^3/uL (0.0-0.1); Basophils % 1.3 %; Eosinophils % 0.5 %; Hematocrit 29.5 % (37.0-47.0); Hemoglobin 9.5 g/dL (11.5-15.3); Lymphocytes # 0.9 10^3/uL (0.8-4.8); Lymphocytes % 22.8 %; Mean Corpuscular HGB Conc 32.2 g/dL (30.0-36.0); Mean Corpuscular Hemoglobin 32.2 pg (28.0-34.0); Mean Platelet Volume 12.9 fL (7.4-10.4); Monocytes # 0.4 10^3/uL (0.2-0.9); Monocytes % 11.4 %; Neutrophils % 62.2 %; Nucleated Red Blood Cells % 0 %; Red Blood Count 2.95 10^6/uL (4.1-5.3); Red Cell Distribution Width 18.3 % (12.1-15.1); White Blood Count 3.9 10^3/uL (4.0-10.0)
[2019-10-20 00:58] LABS: Alanine Aminotransferase 20 U/L (0-33); Albumin Level 2.6 g/dL (3.5-5.2); Alkaline Phosphatase 102 IU/L (35-105); Anion Gap 11.9 (5-19); Aspartate Amino Transferase 34 U/L (0-32); Blood Urea Nitrogen 12 mg/dL (8-23); Calcium 7.6 mg/dL (8.5-10.5); Carbon Dioxide 25 mmol/L (22-29); Chloride 102 mmol/L (98-107); Creatinine Clr Calc Pharmacy 70.0695; Globulin 3.2 g/dL (1.3-4.6); Glomerular Filtration Rate 71.5 mL/min (90-130); Glucose 94 mg/dL (65-115); Osmolality Calculated 276 mOsm/kg (285-295); Potassium 3.9 mmol/L (3.5-5.1); Sodium 135 mmol/L (136-145); Total Protein 5.8 g/dL (6.6-8.7)
[2019-10-20 01:22] LABS: Vancomycin Trough 23.8 ug/mL (10-15)
[2019-10-20 01:43] LABS: Slide Review Slide Review Perform
[2019-10-20 01:44] LABS: Platelet Count 26 10^3/cmm (130-400)
[2019-10-20] MEDS: lactated ringers 1,000 ML 125 ML IV ×3 (06:34→21:37)
[2019-10-20] MEDS: bacitracin ointment 28 gm 1 APPLIC TOPICAL ×2 (08:04→18:16)
[2019-10-20] MEDS: gabapentin 300 mg Capsule 600 MG PO ×3 (08:11→21:38)
[2019-10-20] MEDS: magnesium oxide 400 mg tablet PO ×2 (08:11→18:13)
[2019-10-20] MEDS: pantoprazole DR 40 mg Tablet PO (08:11)
[2019-10-20] MEDS: sennosides-docusate Tablet 1 TAB PO (08:11)
[2019-10-20] MEDS: cyanocobalamin 1,000 mcg Tablet 1000 MCG PO (08:11)
--- NOTE | 2019-10-20 10:50 | PC.NURSE ---
Spoke with Victor Hugo the pharmacist in pharmacy who says it is okay to give the patient her 10 o'clock dose of Vancomycin.
[2019-10-20] MEDS: vancomycin 1,000 MG in sodium chloride 0.9% 250 ML 250 MG IV ×2 (11:00→21:31)
[2019-10-20] MEDS: cefepime 1,000 MG in sodium chloride 0.9% (plus) 50 ML 100 MG IV ×2 (13:52→23:22)
[2019-10-20] MEDS: ondansetron 2 mg/ML SDV 2 mL 4 MG IVP (14:02)
--- NOTE | 2019-10-20 15:12 | P.PN_ITS ---
Subjective Subjective: Interval history: Patient is doing much better this morning. She had several episodes of hypopnea yesterday which improved with Narcan. She received several doses. Apparently patient's home morphine was restarted and I have discussed with pharmacy. Patient only got 1 MS Contin 100 mg dose and then 1 morphine 30 mg IR during this hospitalization in addition to IV dose she received in the ER. She reports that she only takes morphine at home as needed but dose she received was enough to significantly depressed patient's respiratory status. Her morphine is currently discontinued. Her labs continue to improve. Vitals/I&O/Wt Last Vital Signs Temp 98.4 F 10/20/19 11:15 Pulse 72 10/20/19 15:09 Resp 18 10/20/19 11:15 BP 102/66 10/20/19 11:15 Pulse Ox 94 10/20/19 15:09 10/20/19 10/20/19 10/20/19 06:59 14:59 22:59 Intake Total 1350 / 5011.667 1415.417 / 1415.417 Balance 1350 / 4911.667 1415.417 / 1415.417 Physical Exam Const: COMMON NORMALS: no acute distress and patient oriented x3 Resp: COMMON NORMALS: normal respiratory effort and clear to auscultation bilaterally AUSCULTATION: clear to auscultation bilaterally Cardio: COMMON NORMALS: regular rate, regular rhythm and S2 normal heart sound present RATE: regular rate RHYTHM: regular rhythm HEART SOUNDS: S2 normal heart sound present OTHER: No lower extremity edema GI: COMMON NORMALS: Normal to inspection, nondistended, normoactive bowel sounds present, Soft to palpation and non-tender PALPATION: Yes Soft to palpation Neuro: COMMON NORMALS: patient oriented x3 and no focal motor deficits Skin: NARRATIVE SKIN EXAM: Left chest opening with draining purulent material. Some surrounding erythema versus chronic changes noted. This appears to be at least partially related to invasive malignancy. Data : 10/20/19 00:34 10/20/19 00:34 A&P Assessment and plan (1) Neutropenia: Status: Acute (2) Pancytopenia: Status: Acute (3) Weakness: Status: Acute (4) Cellulitis: Of left chest with underlying abscess and purulent drainage. Status: Acute (5) Abnormal transaminases: Status: Acute (6) Syncope: Status: Acute Additional A&P Information Severe neutropenia with underlying pancytopenia It seems to be drug-induced/chemotherapy-induced pancytopenia She will need Neupogen, will touch base with Dr. Sainz in the morning, currently for her purulent cellulitis I would start her on vancomycin and cefepime for MRSA and antipseudomonal coverage, keep her on normal saline maintenance fluid rate Reverse isolation Blood cultures obtained Lactic acid trended down after fluid resuscitation Not septic Syncopal event I do suspect severe dehydration to be the cause of syncopal event, EKG showing sinus rhythm, no arrhythmia noted, no chest pain or palpitations, troponin trending down, her lactic acid trended down significantly after fluid resuscitation, clinically she looks dry, at home she has been taking Lasix, she is consistent with her Eliquis, no lower extremity swelling, patient is not tachycardic or hypoxic, low risk for PE at this point, I highly doubt will be able to obtain echo because of left chest wall tunneled wound and purulent cellulitis UTI: Patient is complaining of urinary frequency however denying dysuria Would obtain urinalysis and urine culture Purulent cellulitis of left chest wall Purulent drainage of tunneled wound which seems to be secondary to cancer metastases MRSA and antipseudomonal coverage started High risk for sepsis and septic shock considering pancytopenia Cellulitis of lower abdominal wall with intertrigo, topical antifungal Abnormal transaminases with high alkaline phosphatase seems secondary to hepatic metastases, abdominal imaging showing multiple metastases Patient is full code For previous history of PE patient is currently on Eliquis which I would continue for now No need of DVT prophylaxis because of use of Eliquis Neutropenic diet Unintentional opiate overdose. Not present on admission. PLAN: We will continue current antibiotics. Continue holding opioids. Continue with physical therapy and if patient is doing well we will likely be able to dismiss patient home on oral antibiotics. Patient does not want to consider nursing facility placement. Reports that she lives with her sister and plans to go back home. Attestations Medical Necessity Statement*: Patient with neutropenia postchemotherapy requires close inpatient monitoring and treatment till deemed safe for discharge. Time Spent in Patient Care: 16 - 35 minutes Coding Level of Care Code Acute Collect On Delivery Clerk for [facility] Fwd Diagnoses Neutropenia D70.9 Pancytopenia D61.818 Weakness R53.1 Cellulitis L03.90 Abnormal transaminases R74.8 Syncope R55
--- NOTE | 2019-10-20 15:33 | PC.CHAP ---
Pastoral Care Encounter/Spiritual Assessment Type of Contact [] Declined program dir visit [] Patient/Family/Request visit [] Outpatient visit [] Follow-up visit [] Physician referral [] Code/Alert [X] Routine visit [] Staff referral [] Actively dying [X] Patient sleeping [] Family support [] [] Out of room [] Palliative care [] [] Receiving care in room [] Pre-surgical visit [] Trauma [] Long length of stay [] ICU visit [] Other: Relational/Emotional Strength [] Patient feels connected with others/family/visitors/staff [] Distress [] Loneliness/isolation [] Abandonment Spirituality of Patient [] Person of Aline [] Attends Latter Day of their Aline [] Believes in Prayer [] Reads Bible or Taoism materials [] There are Spiritual issues to be addressed Survey Methodologist Interventions [] Prayer [] Active listening [] Non-anxious presence [] Spiritual/emotional support [] Crisis/trauma care [] Spiritual counseling [] Bereavement support [] Provided bereavement packet [] Provided Bible/devotional materials [] Provided toy/stuffed animal, coloring book to patient or family member [] Provided Communion [] Anointing/[place] [] Salvation [] Completed spiritual assessment [] Other: Impact on Illness or Injury [] Angry [] Fearful [] Anxious [] Often cries [] Exhaustion [] Unable to work [] Unable to attend voodoo [] Unable to walk/stand [] Unable to read [] Unable to drive [] Unable to eat/drink [] Unable to sleep [] Unable to be with family [] Patient intubated [] Other: Summary Time spent with patient
[2019-10-20] MEDS: nystatin powder 15 gm Btl 1 APPLIC TOPICAL (18:12)
--- NOTE | 2019-10-20 18:47 | PC.NURSE ---
End of shift report Patient over all had a good day. Patient was awake and alert all day. Patient did not require any Narcan today. Patient did get up to the chair for about 15 minutes with PT. Patient's R AC IV infiltrated and was removed intact. Patient Port Dressing was changed today. Patient will discharge to a SNF.
[2019-10-21] VITALS (8 sets, daily range): BP systolic 91–132; BP diastolic 57–65; PULSE 71–88; RESP 16–20; TEMP 36.6–37.2; O2SAT 94–100
[2019-10-21 03:59] LABS: Basophils % 0.6 %; Eosinophils % 0.3 %; Hematocrit 26.5 % (37.0-47.0); Hemoglobin 8.6 g/dL (11.5-15.3); Lymphocytes # 1.2 10^3/uL (0.8-4.8); Lymphocytes % 18.6 %; Mean Corpuscular HGB Conc 32.5 g/dL (30.0-36.0); Mean Corpuscular Hemoglobin 32.2 pg (28.0-34.0); Mean Corpuscular Volume 99.3 fL (81-99); Mean Platelet Volume 12.3 fL (7.4-10.4); Monocytes # 0.6 10^3/uL (0.2-0.9); Monocytes % 9.5 %; Neutrophils # 4.45 10^3/uL (1.8-7.7); Neutrophils % 69.6 %; Nucleated Red Blood Cells % 0 %; Platelet Count 29 10^3/cmm (130-400); Red Blood Count 2.67 10^6/uL (4.1-5.3); Red Cell Distribution Width 17.8 % (12.1-15.1); White Blood Count 6.4 10^3/uL (4.0-10.0)
[2019-10-21 04:15] LABS: Alanine Aminotransferase 19 U/L (0-33); Albumin Level 2.6 g/dL (3.5-5.2); Alkaline Phosphatase 103 IU/L (35-105); Anion Gap 10.3 (5-19); Aspartate Amino Transferase 32 U/L (0-32); Blood Urea Nitrogen 10 mg/dL (8-23); Calcium 7.4 mg/dL (8.5-10.5); Carbon Dioxide 28 mmol/L (22-29); Chloride 103 mmol/L (98-107); Creatinine Clr Calc Pharmacy 70.0695; Globulin 2.8 g/dL (1.3-4.6); Glomerular Filtration Rate 71.5 mL/min (90-130); Glucose 99 mg/dL (65-115); Osmolality Calculated 282 mOsm/kg (285-295); Potassium 3.3 mmol/L (3.5-5.1); Sodium 138 mmol/L (136-145); Total Bilirubin 0.8 mg/dL (0.15-1.2); Total Protein 5.4 g/dL (6.6-8.7)
[2019-10-21] MEDS: sennosides-docusate Tablet 1 TAB PO (09:47)
[2019-10-21] MEDS: cyanocobalamin 1,000 mcg Tablet 1000 MCG PO (09:47)
[2019-10-21] MEDS: gabapentin 300 mg Capsule 600 MG PO ×3 (09:47→21:48)
[2019-10-21] MEDS: pantoprazole DR 40 mg Tablet PO (09:47)
[2019-10-21] MEDS: nystatin powder 15 gm Btl 1 APPLIC TOPICAL ×2 (09:47→18:08)
[2019-10-21] MEDS: magnesium oxide 400 mg tablet PO ×2 (09:47→18:11)
[2019-10-21 11:07] LABS: Vancomycin Trough 26.6 ug/mL (10-15)
[2019-10-21] MEDS: bacitracin ointment 28 gm 1 APPLIC TOPICAL ×2 (11:08→18:08)
--- NOTE | 2019-10-21 11:08 | P.PN_ITS ---
Subjective Subjective: Interval history: Patient is much more alert this morning. Denies shortness of breath or chest pain. Denies abdominal pain. Reports that her appetite is still poor. Reports being weak and not strong enough to be dismissed home where she lives with her sister. Agrees with intermediate facility placement. White blood cell count completely recovered and is 6.4 this morning. Platelets are up to 29. She was able to sit in the chair for 15 minutes yesterday. Vitals/I&O/Wt Last Vital Signs Temp 98.3 F 10/21/19 08:00 Pulse 75 10/21/19 07:36 Resp 20 H 10/21/19 08:00 BP 110/64 10/21/19 08:00 Pulse Ox 98 10/21/19 08:00 10/20/19 10/21/19 10/21/19 22:59 06:59 14:59 Intake Total 1425.833 / 3141.250 480 / 3621.250 240 / 240 Output Total 500 / 500 700 / 1200 Balance 925.833 / 2641.250 -220 / 2421.250 240 / 240 Physical Exam Const: COMMON NORMALS: no acute distress and patient oriented x3 Resp: COMMON NORMALS: normal respiratory effort and clear to auscultation bilaterally AUSCULTATION: clear to auscultation bilaterally Cardio: COMMON NORMALS: regular rate, regular rhythm and S2 normal heart sound present RATE: regular rate RHYTHM: regular rhythm HEART SOUNDS: S2 normal heart sound present OTHER: No lower extremity edema GI: COMMON NORMALS: Normal to inspection, nondistended, normoactive bowel sounds present, Soft to palpation and non-tender PALPATION: Yes Soft to palpation Neuro: COMMON NORMALS: patient oriented x3 and no focal motor deficits Data : 10/21/19 03:35 10/21/19 03:35 A&P Assessment and plan (1) Neutropenia: Status: Acute (2) Pancytopenia: Status: Acute (3) Weakness: Status: Acute (4) Cellulitis: Of left chest with underlying abscess and purulent drainage. Status: Acute (5) Abnormal transaminases: Status: Acute (6) Syncope: Status: Acute Additional A&P Information Severe neutropenia with underlying pancytopenia It seems to be drug-induced/chemotherapy-induced pancytopenia She will need Neupogen, will touch base with Dr. Sainz in the morning, currently for her purulent cellulitis I would start her on vancomycin and cefepime for MRSA and antipseudomonal coverage, keep her on normal saline maintenance fluid rate Reverse isolation Blood cultures obtained Lactic acid trended down after fluid resuscitation Not septic Syncopal event I do suspect severe dehydration to be the cause of syncopal event, EKG showing sinus rhythm, no arrhythmia noted, no chest pain or palpitations, troponin trending down, her lactic acid trended down significantly after fluid resusc itation, clinically she looks dry, at home she has been taking Lasix, she is consistent with her Eliquis, no lower extremity swelling, patient is not tachycardic or hypoxic, low risk for PE at this point, I highly doubt will be able to obtain echo because of left chest wall tunneled wound and purulent cellulitis UTI: Patient is complaining of urinary frequency however denying dysuria Would obtain urinalysis and urine culture Purulent cellulitis of left chest wall Purulent drainage of tunneled wound which seems to be secondary to cancer metastases MRSA and antipseudomonal coverage started High risk for sepsis and septic shock considering pancytopenia Cellulitis of lower abdominal wall with intertrigo, topical antifungal Abnormal transaminases with high alkaline phosphatase seems secondary to hepatic metastases, abdominal imaging showing multiple metastases Patient is full code For previous history of PE patient is currently on Eliquis which I would continue for now No need of DVT prophylaxis because of use of Eliquis Neutropenic diet Unintentional opiate overdose. Not present on admission. PLAN: We will continue current antibiotics. Restart morphine IR 10 mg 3 times daily as needed. Patient reports that she takes usually 30 mg IR twice daily. Reports that for the last 5 to 6 months she has not been taking 100 mg MS Contin tablets. Awaiting placement to intermediate facility. Discussed regarding importance of physical therapy. Inpatient agreed to participate. Attestations Medical Necessity Statement*: Patient with neutropenia postchemotherapy as well as significant deconditioning and generalized weakness requires close inpatient monitoring and treatment till placement to nursing facility is arranged. Time Spent in Patient Care: 16 - 35 minutes Coding Level of Care Code Acute Leakage Tester for g Fwd Diagnoses Neutropenia D70.9 Pancytopenia D61.818 Weakness R53.1 Cellulitis L03.90 Abnormal transaminases R74.8 Syncope R55
[2019-10-21] MEDS: cefepime 1,000 MG in sodium chloride 0.9% (plus) 50 ML 100 MG IV ×2 (11:53→21:48)
[2019-10-21] MEDS: potassium chloride ER 10 mEq Tablet 40 MEQ PO (11:54)
[2019-10-21] MEDS: ondansetron 2 mg/ML SDV 2 mL 4 MG IVP (17:18)
[2019-10-21] MEDS: lactated ringers 1,000 ML 125 ML IV (18:10)
--- NOTE | 2019-10-21 18:53 | PC.NURSE ---
End of shift report Patient has some nausea and vomiting with dinner. She had some vomiting yesterday with dinner as well but thought it was the Tuna she had eaten. Patient has changed her mind again after speaking with her sister Krista. Patient wishes to be discharged home. Patient has only been up with PT one time for 15 minutes in a chair and then she requested to go back to bed. Patient states her sister is a TECHNICAL TRAINER, her niece a nurse. Patient states that her sister and niece take care of her father at home as well as her. Patient has been using a bedpan to void and has had good output.
[2019-10-22] MEDS: lactated ringers 1,000 ML 125 ML IV ×2 (00:52→08:50)
[2019-10-22] MEDS: vancomycin 1,000 MG in sodium chloride 0.9% 250 ML 250 MG IV (00:52)
[2019-10-22 04:00] VITALS: BP 126/79; PULSE 88; RESP 18; TEMP 36.8; O2SAT 96
[2019-10-22 07:51] VITALS: BP 106/69; PULSE 86; RESP 18; TEMP 37.1; O2SAT 94
[2019-10-22 08:36] LABS: Basophils % 0.5 %; Eosinophils % 0.2 %; Hematocrit 28.1 % (37.0-47.0); Hemoglobin 8.9 g/dL (11.5-15.3); Lymphocytes # 1.3 10^3/uL (0.8-4.8); Lymphocytes % 22.1 %; Mean Corpuscular HGB Conc 31.7 g/dL (30.0-36.0); Mean Corpuscular Hemoglobin 31.8 pg (28.0-34.0); Mean Corpuscular Volume 100.4 fL (81-99); Mean Platelet Volume 12.8 fL (7.4-10.4); Monocytes # 0.6 10^3/uL (0.2-0.9); Monocytes % 10.6 %; Neutrophils # 3.84 10^3/uL (1.8-7.7); Neutrophils % 64.9 %; Nucleated Red Blood Cells % 0 %; Platelet Count 32 10^3/cmm (130-400); Red Cell Distribution Width 17.5 % (12.1-15.1); White Blood Count 5.9 10^3/uL (4.0-10.0)
[2019-10-22] MEDS: pantoprazole DR 40 mg Tablet PO (08:41)
[2019-10-22] MEDS: gabapentin 300 mg Capsule 600 MG PO (08:41)
[2019-10-22] MEDS: cyanocobalamin 1,000 mcg Tablet 1000 MCG PO (08:41)
[2019-10-22] MEDS: magnesium oxide 400 mg tablet PO (08:41)
[2019-10-22] MEDS: sennosides-docusate Tablet 1 TAB PO (08:41)
[2019-10-22 08:42] LABS: INR 1.07 (0.8-1.2)
[2019-10-22] MEDS: nystatin powder 15 gm Btl 1 APPLIC TOPICAL (08:44)
[2019-10-22] MEDS: bacitracin ointment 28 gm 1 APPLIC TOPICAL (08:44)
[2019-10-22 08:51] LABS: Alanine Aminotransferase 24 U/L (0-33); Albumin Level 2.7 g/dL (3.5-5.2); Alkaline Phosphatase 164 IU/L (35-105); Anion Gap 11.9 (5-19); Aspartate Amino Transferase 46 U/L (0-32); Blood Urea Nitrogen 7 mg/dL (8-23); Calcium 7.4 mg/dL (8.5-10.5); Carbon Dioxide 28 mmol/L (22-29); Chloride 105 mmol/L (98-107); Creatinine Clr Calc Pharmacy 70.0695; Globulin 2.7 g/dL (1.3-4.6); Glomerular Filtration Rate 71.5 mL/min (90-130); Glucose 91 mg/dL (65-115); Osmolality Calculated 287 mOsm/kg (285-295); Potassium 3.9 mmol/L (3.5-5.1); Sodium 141 mmol/L (136-145); Total Bilirubin 0.7 mg/dL (0.15-1.2); Total Protein 5.4 g/dL (6.6-8.7)
[2019-10-22] MEDS: cefepime 1,000 MG in sodium chloride 0.9% (plus) 50 ML 100 MG IV (09:57)
[2019-10-22 10:00] VITALS: BP 95/62; PULSE 88; RESP 16; TEMP 36.8
--- NOTE | 2019-10-22 10:09 | PM.DCS ---
Discharge Providers Date of Admission: 10/16/19 19:00 Date of Discharge: October 22, 2019 Attending Provider at Admission: Reyna Salas MD Attending Provider at Discharge: Tera Grimaldo MD Primary Care Provider: REY Patten Diagnoses at Discharge Discharge Diagnosis (1) Neutropenia: Status: Acute (2) Pancytopenia: Status: Acute (3) Weakness: Status: Acute (4) Cellulitis: Status: Acute (5) Abnormal transaminases: Status: Acute (6) Syncope: Status: Acute Reason for Visit Reason for Visit: NEAR SYNCOPE Hospital Course Discharge Summary: Patient presented dehydrated with syncopal episode post chemotherapy. She was pancytopenic with neutropenia. She was started on antibiotics and IV fluids and gradually improved. This morning she reports feeling much better reports that her oral intake is also improving. Initially we were trying to place patient to group home facility for rehabilitation but she refuses this morning and wants to go home. Reports that her sister will take care of her. She was able to transfer herself to bedside commode And she thinks she will do okay at home. This morning she denies shortness of breath or chest pain. Denies abdominal pain. I will decrease her morphine dose as patient was getting lethargic with her current home dose. I will continue Levaquin that patient was taking previously. Will request outpatient follow-up with oncology service as well as outpatient wound care clinic. Physical Exam Const: COMMON NORMALS: no acute distress and patient oriented x3 Resp: COMMON NORMALS: normal respiratory effort and clear to auscultation bilaterally AUSCULTATION: clear to auscultation bilaterally Cardio: COMMON NORMALS: regular rate, regular rhythm and S2 normal heart sound present RATE: regular rate RHYTHM: regular rhythm HEART SOUNDS: S2 normal heart sound present OTHER: No lower extremity edema GI: COMMON NORMALS: Normal to inspection, nondistended, normoactive bowel sounds present, Soft to palpation and non-tender PALPATION: Yes Soft to palpation Neuro: COMMON NORMALS: patient oriented x3 and no focal motor deficits Skin: NARRATIVE SKIN EXAM: Patient continues to have chest wall opening with very no significant output. Discharge Data Data Completed and Pending: Completed Studies During Hospitalization Category Date Time Status CT abdomen pelvis w con* [id number] Stat Cat Scan 10/16/19 16:[address] chest w con* [id number] Routine Cat Scan 10/17/19 12:14 Completed XR chest 1V allyn ble [id number] Stat Exams 10/16/19 15:59 Completed Pending at discharge Category Date Time Status Blood Culture Sta t Lab 10/17/19 10:38 Results Complete Blood Co unt w/Auto AM LABS Lab 10/23/19 04:00 Ordered Complete Blood Co unt w/Auto AM LABS Lab 10/24/19 04:00 Ordered Complete Blood Co unt w/Auto AM LABS Lab 10/25/19 04:00 Ordered Comprehensive Met abolic Panel AM LA BS Lab 10/23/19 04:00 Ordered Comprehensive Met abolic Panel AM LA BS Lab 10/24/19 04:00 Ordered Comprehensive Met abolic Panel AM LA BS Lab 10/25/19 04:00 Ordered Labs from last 24 hours 10/22/19 10/22/19 10/22/19 08:10 08:10 08:10 WBC 5.9 RBC 2.80 L Hgb 8.9 L Hct 28.1 L MCV 100.4 H MCH 31.8 MCHC 31.7 RDW 17.5 H Plt Count 32 L MPV 12.8 H Neut % (Auto) 64.9 Lymph % (Auto) 22.1 [place] % (Auto) 10.6 Eos % (Auto) 0.2 Baso % (Auto) 0.5 Neut # (Auto) 3.84 Lymph # (Auto) 1.3 [place] # (Auto) 0.6 Eos # (Auto) 0.0 Baso # (Auto) 0.0 Nucleated RBC % (a uto) 0 Nucleated RBCs # 0.0 PT 14.30 INR 1.07 Sodium 141 Potassium 3.9 Chloride 105 Carbon Dioxide 28 Anion Gap 11.9 BUN 7 L Creatinine 0.8 GFR Calculation 71.5 L Glucose 91 Calculated Osmolal ity 287 Calcium 7.4 L Total Bilirubin 0.7 AST 46 H ALT 24 Alkaline Phosphata se 164 H Total Protein 5.4 L Albumin 2.7 L Globulin 2.7 Vancomycin Trough 10/21/19 09:14 WBC RBC Hgb Hct MCV MCH MCHC RDW Plt Count MPV Neut % (Auto) Lymph % (Auto) [place] % (Auto) Eos % (Auto) Baso % (Auto) Neut # (Auto) Lymph # (Auto) [place] # (Auto) Eos # (Auto) Baso # (Auto) Nucleated RBC % (a uto) Nucleated RBCs # PT INR Sodium Potassium Chloride Carbon Dioxide Anion Gap BUN Creatinine GFR Calculation Glucose Calculated Osmolal ity Calcium Total Bilirubin AST ALT Alkaline Phosphata se Total Protein Albumin Globulin Vancomycin Trough 26.6 H* Vitals: Last Vital Signs Temp 98.7 F 10/22/19 07:51 Pulse 86 10/22/19 07:51 Resp 18 10/22/19 07:51 BP 106/69 10/22/19 07:51 Pulse Ox 94 10/22/19 07:51 Discharge Plan Discharge Patient Disposition: Home Condition: Stable Prescriptions: New morphine 15 mg tablet 15 mg PO TID PRN (Reason: pain) Qty: 20 RF: 0 sennosides-docusate sodium 8.6-50 mg Tablet 1 tab PO DAILY Qty: 30 RF: 0 nystatin [Nystop] 100,000 unit/gram Powder 1 applic topical BID Qty: 100 RF: 0 Continued gabapentin 600 mg tablet 600 mg PO TID RF: 0 Zofran 4 mg Tablet 4 - 8 mg PO Q4H PRN (Reason: Nausea) RF: 0 Vitamin B-12 1,000 mcg Tablet 1,000 mcg PO DAILY RF: 0 potassium chloride 10 mEq tablet extended release 10 meq PO BID RF: 0 magnesium oxide 400 mg (241.3 mg magnesium) tablet 400 mg PO BID RF: 0 lorazepam 0.5 mg tablet 0.5 mg PO BEDTIME RF: 0 pantoprazole 40 mg tablet,delayed release (DR/EC) 40 mg PO DAILY RF: 0 Vitamin D2 1,250 mcg (50,000 unit) capsule 50,000 unit PO Q30D RF: 0 levofloxacin 500 mg tablet 500 mg PO DAILY RF: 0 Oyster Shell Calcium-Vit D3 500 mg(1,250mg) -200 unit tablet 1 tab PO BID RF: 0 Eliquis 5 mg tablet 5 mg PO BID RF: 0 Discontinued furosemide 40 mg tablet 40 mg PO DAILY RF: 0 morphine 100 mg tablet extended release 100 mg PO Q12H RF: 0 morphine 30 mg tablet 30 mg PO QID PRN (Reason: Pain) RF: 0 Discharge Orders: Discharge Order (Routine); Ordered 10/22/19 Ordered By: Tera Grimaldo Referrals: Holly Hernandez FNP [Primary Care Provider] - 10/24/19 9:00 am Discharge Diet: Advance as tolerated Discharge Activity: Increase activity as tolerated Activity Restrictions/Additional Instructions: Please call your doctor or present to emergency department if your condition worsens or you develop diarrhea, lightheadedness, fatigue or see blood in your stool or black stool. 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
--- NOTE | 2019-10-22 10:58 | PC.NURSE ---
DISCHARGE: [place]-accessed by Paola Leon RN. Notified Pat (sister) was called to inform of discharge and states she will be taking care of sister and she will be caregiver and that she will be here to pick patient up for d/c home in approx. 1 hour. She states she does not need Home Health. JIMBO GOLDBERG
[2019-10-22 11:36] VITALS: BP 101/63; PULSE 93; RESP 18; TEMP 36.7; O2SAT 97
[2019-10-22 14:55] VITALS: BP 101/63; PULSE 93; RESP 18; TEMP 36.7; O2SAT 97
== END 2019-10-22 14:20 | disposition home or self-care (01) | DRG 809 ==
LOC: ER 19:02 → MEDSURG 10-17 07:17
PROVIDERS: Family Medicine; Admitting Provider Internal Medicine; Emergency Provider Emergency Medicine; PCP Nurse Practitioner Family; Visit Provider Internal Medicine
DX: D70.1 Agranulocytosis secondary to cancer chemotherapy (principal); C78.01 Secondary malignant neoplasm of right lung; C78.7 Secondary malignant neoplasm of liver and intrahepatic bile duct; C79.51 Secondary malignant neoplasm of bone; L03.311 Cellulitis of abdominal wall; L02.213 Cutaneous abscess of chest wall; S21.102A Unspecified open wound of left front wall of thorax without penetration into thoracic cavity, initial encounter; N39.0 Urinary tract infection, site not specified; T45.1X5A Adverse effect of antineoplastic and immunosuppressive drugs, initial encounter; Z85.3 Personal history of malignant neoplasm of breast; Z79.899 Other long term (current) drug therapy; D64.81 Anemia due to antineoplastic chemotherapy; M71.20 Synovial cyst of popliteal space [Baker], unspecified knee; Z17.0 Estrogen receptor positive status [ER+]; I10 Essential (primary) hypertension; M19.90 Unspecified osteoarthritis, unspecified site; M81.0 Age-related osteoporosis without current pathological fracture; Z95.828 Presence of other vascular implants and grafts; Z90.13 Acquired absence of bilateral breasts and nipples; Z87.891 Personal history of nicotine dependence; R55 Syncope and collapse; R59.0 Localized enlarged lymph nodes; X58.XXXA Exposure to other specified factors, initial encounter; Z86.711 Personal history of pulmonary embolism; L30.4 Erythema intertrigo; Z79.01 Long term (current) use of anticoagulants; E86.0 Dehydration
CPT/HCPCS: 12345; 36415; 36416; 36430; 36592; 71045; 71260; 74177; 80053; 80202; 81001; 82962; 83605; 84484; 85025; 85362; 85378; 85384; 85610; 85730; 86850; 86900; 86920; 87040; 93005; 94660; 94762; 96375; 97110; 97162; 97166; 97530; 97535; 99283; J0692; J2270; J2310; J2405; J3370; J3430; J3480; J7030; J7050; P9040; Q9967

== ENCOUNTER 2019-10-17 05:44 | Outpatient (RCR) | payer MEDICAID, SELFPAY ==
[2019-10-10 08:57] LABS: Basophils # 0.1 10^3/uL (0.0-0.1); Basophils % 0.9 %; Eosinophils # 0.1 10^3/uL (0.0-0.8); Eosinophils % 0.9 %; Hematocrit 30.6 % (37.0-47.0); Hemoglobin 9.7 g/dL (11.5-15.3); Lymphocytes # 2.2 10^3/uL (0.8-4.8); Lymphocytes % 22.2 %; Mean Corpuscular HGB Conc 31.7 g/dL (30.0-36.0); Mean Corpuscular Hemoglobin 34.3 pg (28.0-34.0); Mean Corpuscular Volume 108.1 fL (81-99); Mean Platelet Volume 9.9 fL (7.4-10.4); Monocytes # 1.2 10^3/uL (0.2-0.9); Monocytes % 12.5 %; Neutrophils # 6.11 10^3/uL (1.8-7.7); Neutrophils % 62.7 %; Nucleated Red Blood Cells % 0 %; Platelet Count 330 10^3/cmm (130-400); Red Blood Count 2.83 10^6/uL (4.1-5.3); Red Cell Distribution Width 17.8 % (12.1-15.1); White Blood Count 9.8 10^3/uL (4.0-10.0)
[2019-10-10 09:19] LABS: Alanine Aminotransferase 54 U/L (0-33); Albumin Level 3.4 g/dL (3.5-5.2); Alkaline Phosphatase 207 IU/L (35-105); Anion Gap 16.3 (5-19); Aspartate Amino Transferase 89 U/L (0-32); Blood Urea Nitrogen 11 mg/dL (8-23); Calcium 8.9 mg/dL (8.5-10.5); Carbon Dioxide 23 mmol/L (22-29); Chloride 100 mmol/L (98-107); Globulin 4.1 g/dL (1.3-4.6); Glomerular Filtration Rate 49.5 mL/min (90-130); Glucose 137 mg/dL (65-115); Osmolality Calculated 278 mOsm/kg (285-295); Potassium 4.3 mmol/L (3.5-5.1); Sodium 135 mmol/L (136-145); Total Bilirubin 0.5 mg/dL (0.15-1.2); Total Protein 7.5 g/dL (6.6-8.7)
[2019-10-10] MEDS: sodium chloride 0.9% 250 ML 75 ML IV (10:45)
[2019-10-10] MEDS: pegfilgrastim 6 mg/0.6 mL Kit (onpro) SUBCUT (13:20)
== END 2019-10-17 23:59 | disposition home or self-care (01) ==
LOC: ONCMED 05:44
PROVIDERS: Visit Provider Internal Medicine Medical Oncology
DX: Z51.11 Encounter for antineoplastic chemotherapy (principal); C50.411 Malignant neoplasm of upper-outer quadrant of right female breast; C78.7 Secondary malignant neoplasm of liver and intrahepatic bile duct; C79.51 Secondary malignant neoplasm of bone; D70.1 Agranulocytosis secondary to cancer chemotherapy; T45.1X5A Adverse effect of antineoplastic and immunosuppressive drugs, initial encounter; Z17.0 Estrogen receptor positive status [ER+]; C50.812 Malignant neoplasm of overlapping sites of left female breast; Z92.3 Personal history of irradiation
CPT/HCPCS: 80053; 85025; 96367; 96372; 96413; 96415; 96417; J1100; J1200; J1453; J2469; J2505; J3490; J7050; J9045; J9264

== ENCOUNTER 2019-10-31 06:07 | Outpatient (RCR) | payer MEDICAID, SELFPAY ==
[2019-10-31] MEDS: alteplase 1 mg/mL SDV 2 mL 2 MG IV (09:54)
[2019-10-31 10:02] LABS: Basophils # 0.1 10^3/uL (0.0-0.1); Basophils % 1.6 %; Eosinophils # 0.1 10^3/uL (0.0-0.8); Eosinophils % 2.1 %; Hematocrit 29.5 % (37.0-47.0); Hemoglobin 9.1 g/dL (11.5-15.3); Lymphocytes # 1.1 10^3/uL (0.8-4.8); Mean Corpuscular HGB Conc 30.8 g/dL (30.0-36.0); Mean Corpuscular Hemoglobin 31.5 pg (28.0-34.0); Mean Corpuscular Volume 102.1 fL (81-99); Mean Platelet Volume 10.4 fL (7.4-10.4); Monocytes # 0.8 10^3/uL (0.2-0.9); Monocytes % 14.7 %; Neutrophils # 3.42 10^3/uL (1.8-7.7); Neutrophils % 61.2 %; Nucleated Red Blood Cells % 0 %; Platelet Count 197 10^3/cmm (130-400); Red Blood Count 2.89 10^6/uL (4.1-5.3); Red Cell Distribution Width 17.5 % (12.1-15.1); White Blood Count 5.6 10^3/uL (4.0-10.0)
[2019-10-31 10:22] LABS: Alanine Aminotransferase 16 U/L (0-33); Albumin Level 2.9 g/dL (3.5-5.2); Alkaline Phosphatase 104 IU/L (35-105); Anion Gap 17.9 (5-19); Aspartate Amino Transferase 33 U/L (0-32); Blood Urea Nitrogen 11 mg/dL (8-23); Calcium 9.3 mg/dL (8.5-10.5); Carbon Dioxide 23 mmol/L (22-29); Chloride 100 mmol/L (98-107); Globulin 4.2 g/dL (1.3-4.6); Glomerular Filtration Rate 62.5 mL/min (90-130); Glucose 112 mg/dL (65-115); Osmolality Calculated 281 mOsm/kg (285-295); Potassium 3.9 mmol/L (3.5-5.1); Sodium 137 mmol/L (136-145); Total Bilirubin 0.5 mg/dL (0.15-1.2); Total Protein 7.1 g/dL (6.6-8.7)
--- NOTE | 2019-11-07 07:26 | ONC FU_ITS ---
Dr. Sainz Patient Follow-Up Note Patient: Luiza Salmon Unit #: [id number]: 1950 Dicatated By: Ming Sainz M.D.Date of Visit:Oct 31, 2019 Onc Med Follow-up/Prog Note Chief Complaint: Breast cancer. History of Present Illness: This is a 69 year-old woman with grade 2 infiltrating ductal carcinoma of the right breast, ER positive/SD negataive and HER-23/hannah negative, stage IV (T2, pN2a, M1), metastatic to bone. 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 It was locally advanced at initial presentation in July 2008. Biopsy showed multifocal grade 3/3 invasive ductal carcinoma with extensive lymphatic invasion within fat and skin. The tumor was ER positive at 100% and SD negative at less than 5%. It was positive for overexpression of HER-2/hannah (3+ by IHC). She was given neoadjuvant chemotherapy with 6 cycles of TCH, which she completed in November 2008. She underwent left modified radical mastectomy in December 2008. Pathology showed residual infiltrating ductal carcinoma within the breast as well as involvement in 8 of 14 axillary lymph nodes. She was given prophylactic chest wall radiation, which she completed in March 2009 to a total dose of 60.4 Gy. She also received a full year of Herceptin, which she completed in July 2009. She started adjuvant hormonal therapy with Femara as of April 2009. It was stopped after completing 5 years of treatment. She did experience some neuropathy from her chemotherapy, and she had some chronic pain issues both during and following her treatment. In September 2016 she presented with a new lump in her right breast. Diagnostic mammogram/ultrasound 10/26/2016 was BI-RADS category high, highly suggestive of malignancy. The mammogram showed an irregular lobular high density mass in the upper outer quadrant measuring 2.3 x 3.1 cm. The ultrasound showed mixed echogenicity mass with irregular margins measuring 1.4 x 1.4 x 3 cm with an adjacent oval nodule or lymph node measuring 3.4 x 6 mm. Ultrasound guided biopsy on 11/09/2016 showed grade 1 infiltrating ductal carcinoma with prominent mucinous carcinoma component. The breast prognostic profile showed ER positive at 99%, strong intensity, with SD negative at less than 1%. The tumor was negative for overexpression of HER-2/hannah, 2+ by IHC and amplification ratio by FISH of 1.1 with 2.1 HER-2 copies/cell. The Ki-67 was unfavorable at 28%. On 11/25/2016 she underwent attempted axillary sentinel lymph node biopsy/right low axillary dissection and right simple mastectomy. There were palpable lymph nodes in the axilla which were noted to be firm and somewhat matted together. Pathology showed grade 2 invasive ductal carcinoma measuring 4.0 cm in greatest dimension. A smaller nodule tumor in the same quadrant measured 1.5 cm. There was involvement in 4 of 4 axillary lymph nodes with the largest metastatic deposit measuring 2.0 cm. There was extranodal extension identified. Her pathologic staging was pT2, pN2a. She had further evaluation with staging PET/CT on 12/25/2016. It showed multiple sites of FDG avid skeletal metastases which included but were not limited to C2, C7, T2, T8, T11, T12, L5, and S4 vertebral bodies as well as multiple sites in the pelvis. In December 2016 she began treatment with fulvestrant in combination with palbociclib, and she also started monthly denosumab injections for the metastatic bone involvement. Thus far she has tolerated the treatment very well. Restaging PET/CT on 04/23/2017 showed overall mixed response of multifocal osseous metastatic disease, with improvement in some areas and progression in others. Also noted was interval development of multifocal hepatic metastatic disease which included lesions with SUVs up to 7.5, largely in the left hepatic lobe. Also noted was new hypermetabolic subcutaneous soft tissue in the inferior left chest wall, strongly suspicious for metastatic disease. On 05/09/2017 she started a trial of palliative chemotherapy with Halaven on a standard day 1/day 8 schedule every 21 days. Her treatment was complicated by neutropenia, requiring growth factor support. She also did receive a dose reduction beginning with cycle 5. A restaging PET/CT on 11/19/2017 showed widespread osseous metastatic lesions but with mild improvement compared to the previous study from March 2017. Multifocal hepatic lesions also were mildly improved. Uptake in the left chest wall was noted to be stable. There was no mention of uptake in the right chest wall. She continued treatment with Halaven. As of 03/08/2018 she began her 14th cylce. Her day 8 treatment was delayed 1 week due to neutropenia. Her restaging PET/CT on 04/01/2018 showed progression of her left chest wall disease and progression of metastatic disease in the liver. Also noted was irregular uptake throughout the bone marrow consistent with widespread osseous metastatic disease, much more extensive compared to the prior study in October 2017. With those findings, she was scheduled for biopsy of a left iliac bone lesion to try and verify the ER/SD and HER-2/hannah status of her metastatic disease. That biopsy unfortunately was nondiagnostic. However, as her left breast cancer was HER-2/hannah positive, I did recommend that she proceed with a trial of TCH chemotherapy. She returned on 05/15/2018 for cycle 1 of carboplatin/docetaxel chemotherapy in combination with Herceptin. She had no acute toxicity during the administration of the chemotherapy. However, at completion of her treatment, she had become very lethargic, and she was sent to the emergency room for evaluation. A noncontrast head CT showed no acute findings. CT of the abdomen/pelvis showed prominent small bowel loops as well as distended stomach. An NG tube placed in the emergency room had an output of 300 mL of brownish colored gastric contents. She was admitted for overnight observation, and by the following day she was feeling better and she was able to be discharged home. It was thought that she most likely had opiate-induced ileus. She was then able to proceed with cycle 2 of carboplatin/docetaxel/Herceptin on 06/05/2018. It was administered with a 20% reduction in the chemotherapy dosages. The Herceptin was adjusted to the 3-week dosing schedule. She tolerated it well, and she was then able to continue her treatment at 3-week intervals. As of 08/28/2018 she completed her 6th cycle. In the presence of BRCA2 mutation and a good response to [place] based chemotherapy, she was then transitioned to maintenance therapy with olaparib 300 mg twice daily beginning in October 2018. She also continued the monthly denosumab injections for the metastatic bone involvement. Her other medical illnesses have been limited to hypertension and osteoporosis. She has had some chronic swelling in the lower extremities following chemotherapy. She is a nonsmoker. Surgeries have been limited to left modified radical mastectomy in December 2008 and right mastectomy with low axillary dissection in October 2016. She also had undergone placement of Port-A-Cath venous access device for chemotherapy in 2008. INTERIM HISTORY: I had seen her for followup on 09/10/2019. Over a period of about 2 months she had developed erythema in the left chest wall, which had worsened despite antibiotic therapy. At that point she had 2 open sores in the chest wall, and she also had shown some decline in her performance status. Her restaging PET/CT on 09/29/2019 showed progression of a left chest wall implant and development of a new pleural lesion at the anterior right upper lobe. A 3.0 cm metastatic lesion in the right hepatic dome had SUV 15.0. There was new right-sided retrocaval adenopathy. Still noted was multiple discrete lesions throughout the appendicular and axial skeleton consistent with possible metastatic lesions. With evidence of an obvious disease progression, I had recommended that she restart chemotherapy with carboplatin/Abraxane, as she had previously responded very well to [place] based therapy. She began cycle 1 on 10/10/2019. On 10/16/2019 she was admitted to the hospital with severe pancytopenia. She still had an open draining wound in the chest wall. She required PRBC transfusion, but she remained afebrile on broad-spectrum antibiotic coverage, and she otherwise recovered uneventfully. She was discharged home on 10/22/2019. She is seen for a follow-up visit. She is still very weak following her chemotherapy treatment and subsequent hospitalization. Her activity is very limited, and she is mostly confined to bed or wheelchair. Her ECOG score is 3. Her appetite is not good. She does not have fever, night sweats, or hot flashes. She has had no mouth sores. She does not complain of shortness of breath or cough. She still has an open wound in the chest wall, which is being packed daily, and it is beginning to show some healing. She has no GI/ complaints other than she is still having some acid reflux. She also has having some pain on her right side. She has no other joint or bone pain, but she is now complaining of numbness in her chin on the right side. She also has numbness/tingling in her hands and feet. Medications: Calcium 1 Tablet (of 500 mg) Oral b.i.d., Eliquis 1 Tablet (of 5 mg) Oral b.i.d., Ergocalciferol 1 (44943 Units) Capsule Oral q 30 days, Gabapentin 1 Tablet (of 600 mg) Capsule Oral t.i.d., Klor-Con M10 1 (10 meq) Tablet, controlled release Oral b.i.d., Magnesium 1 Tablet (of 400 mg) Oral b.i.d., Morphine Sulfate 1 Tablet (of 30 mg) Oral four times a day PRN, Morphine Sulfate ER 1 Tablet (of 100 mg) Capsule SR 24 HR Oral q 12 hours PRN, Olaparib 2 Tablet (of 150 mg) Oral b.i.d., Protonix 1 (40 mg) Tablet, enteric coated Oral daily, Senokot S 1 Tablet (of 8.6-50 mg) Oral b.i.d. PRN, Vitamin B12 1 Tablet Oral daily Allergies: No Known Allergies. Review of Systems: Constitutional - She is still very weak and she has very limited activity. Her appetite is not good. She does not have fever, night sweats, or hot flashes. ECOG score is 3, ENMT - Her nose runs occasionally. No mouth sores. No sore throat or difficulty swallowing, Hematologic/Lymphatic - No abnormal bruising or bleeding, Respiratory - No shortness of breath. No cough. No pleuritic pain or hemoptysis, Cardiovascular - No angina pain. No palpitations, Gastrointestinal - No nausea or vomiting. No heartburn or acid reflux. No diarrhea or constipation. No blood in the stool or black stools, Genitourinary (F) - No dysuria or hematuria. No urinary frequency. No urgency or incontinence, Musculoskeletal - She has having pain in the left chest wall and she has some pain on her right side. She has no other joint or bone pain, Integumentary - She has an open wound on the left chest wall, Neurologic - No headache. She sometimes has dizziness. She has developed numbness on the right side of her chin, and she has numbness/tingling in her hands and feet, Psychiatric - No anxiety or depression. She sometimes has difficulty sleeping. Vital Signs: Performed on Oct 31, 2019 10:42 Height - 68.00 in Temperature - 97.0 F (LOW) Pulse - 91 /min Respiration - 20 /min BP - 100/62 mm(hg) O2 Sat - 100 % Pain - 4 Physical Examination: Constitutional - She appears generally weak, Eyes - Sclerae nonicteric. Conjunctivae clear, ENMT - No lesions noted in the oral cavity, Hematologic/Lymphatic - No cervical or clavicular adenopathy, Respiratory - Lungs are clear, Cardiovascular - Heart rhythm is regular. There is a II/ systolic murmur. There is no gallop or rub noted, Breasts - The right chest wall shows no lesions. There is a significant area of erythema on the left chest wall, and there is a persistent open wound. There are no other chest wall lesions noted, and there is no axillary adenopathy, Abdomen - Soft. Liver and spleen are not enlarged. There is no abdominal mass or ascites noted and there is no inguinal adenopathy, Extremities - No edema, Neurologic - No focal neurologic deficits noted. Lab/Imaging: Test performed on Oct 31, 2019 09:50 WBC 5.6 10 3/uL RBC 2.89 10 6/uL HGB 9.1 g/dL HCT 29.5 % MCV 102.1 fL MCH 31.5 pg MCHC 30.8 g/dL RDW 17.5 % Platelet Count 197 10 3/cmm MPV 10.4 fL Neutrophils 3.42 10 3/uL Lymphocytes 1.1 10 3/uL Monocytes 0.8 10 3/uL Eosinophils 0.1 10 3/uL Basophils 0.1 10 3/uL Neutrophil % 61.2 % Lymphocyte % 20.0 % Monocyte % 14.7 % Eosinophil % 2.1 % Basophils % 1.6 % NRBC % 0 % Test performed on Oct 31, 2019 09:48 Sodium 137 mmol/L Potassium 3.9 mmol/L Chloride 100 mmol/L CO2 23 mmol/L Anion Gap 17.9 BUN 11 mg/dL Creatinine 0.9 mg/dL Cr Clearance (Est) 68.4500 mL/min eGFR 62.5 mL/min Glucose 112 mg/dL Calcium 9.3 mg/dL Protein, Total 7.1 g/dL Albumin 2.9 g/dL Globulin 4.2 g/dL Bilirubin, Total 0.5 mg/dL ALT (SGPT) 16 U/L AST (SGOT) 33 U/L Alkaline Phosphatase 104 IU/L Impression: 1. 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 She also completed 5 years of adjuvant hormonal therapy with Femara. 2. In 2016 she was found to have grade 2 invasive ductal carcinoma of the right breast, ER positive/SD negative and HER-2/hannah negative. 3. She underwent ultrasound-guided needle biopsy on 11/09/2016 followed by right simple mastectomy/low axillary dissection on 11/25/2016. 4. She was found to have stage IV disease (T2, pN2a, M1), with PET/CT showing multiple sites of bone involvement in the spine and pelvis. 5. On 01/05/2017 she began treatment with fulvestrant in combination with palbociclib. She also started monthly denosumab injections for the metastatic bone involvement. She completed 4 cycles of palbociclib. Her restaging PET/CT on 04/23/2017 showed mixed response with regard to the metastatic bone involvement, but unfortunately there was additional progression with new hepatic metastatic disease and new metastatic involvement in the left chest wall. 6. On 05/09/2017 she began a trial of palliative chemotherapy with Hal[place] on a standard day 1/day 8 schedule every 21 days. Restaging PET/CT on 11/19/2017 did show some improvement in the osseous and hepatic metastatic disease with no obvious disease progression. She then continued treatment with [place], which she tolerated well with growth factor support. 7. As of 03/08/2018 she began her 14th cycle of treatment. Her restaging PET/CT on 04/01/2018 showed evidence of significant disease progression including the left chest wall and liver as well as extensive metastatic bone involvement. 8. She began treatment with TCH chemotherapy on 05/15/2018. She had tolerated it well following a 20% reduction in the chemotherapy dosages. As of 08/28/2018 she completed her 6th cycle. By clinical evaluation she had a good response. 9. During that time, she was evaluated with a next generation sequencing study, which did confirm the presence of a BRCA2 mutation, presumed to be somatic. In the setting of a good response to [place] based chemotherapy, she was then transitioned to maintenance therapy with olaparib 300 mg twice daily beginning in October 2018. During follow-up she had gradual improvement in her performance status after stopping the chemotherapy. She was able to continue the olaparib at the same dosage, and she had been showing a steady decline in her CA 27.29 level. She was moderately anemic, which I had assumed to be treatment related. However, over a period of 2 months she had developed changes in the left chest wall which had continued to worsen despite antibiotic therapy. She also had shown some decline in performance status. She was then confirmed by PET/CT to have disease progression. With that finding, I had recommended that she restart chemotherapy with carboplatin/Abraxane. She received cycle 1 on 10/10/2019. At day 7 she was admitted to the hospital with severe pancytopenia. She has recovered, but she has had a significant further decline in her performance status, and she continues to have an open wound on the left chest wall. Plan: She will continue symptomatic/supportive treatment measures pending further recovery from her recent chemotherapy. Given the toxicity she experienced, I do not anticipate any further treatment with this regimen. Ultimately she may just continue on symptomatic/supportive care, as further treatment options for the breast cancer will be very limited. Signed By: Ming Sainz M.D. <<Signature on File>>
== END 2019-10-31 23:59 | disposition home or self-care (01) ==
LOC: ONCMED 06:07
PROVIDERS: PCP Nurse Practitioner Family; Visit Provider Internal Medicine Medical Oncology
DX: C50.411 Malignant neoplasm of upper-outer quadrant of right female breast (principal); Z17.0 Estrogen receptor positive status [ER+]; C79.51 Secondary malignant neoplasm of bone; C78.7 Secondary malignant neoplasm of liver and intrahepatic bile duct; S21.102D Unspecified open wound of left front wall of thorax without penetration into thoracic cavity, subsequent encounter; X58.XXXD Exposure to other specified factors, subsequent encounter; T45.1X5D Adverse effect of antineoplastic and immunosuppressive drugs, subsequent encounter; Z85.3 Personal history of malignant neoplasm of breast; Z90.13 Acquired absence of bilateral breasts and nipples; Z79.899 Other long term (current) drug therapy
CPT/HCPCS: 36593; 80053; 85025; 96374; 99214; J2997

== ENCOUNTER 2019-11-11 18:36 | Inpatient (IN) | payer MEDICAID, SELFPAY ==
[2019-11-11] VITALS (9 sets, daily range): BP systolic 81–105; BP diastolic 52–69; PULSE 88–108; RESP 18–32; TEMP 36.5–36.8; O2SAT 92–99
--- NOTE | 2019-11-11 18:46 | CTR_ITS ---
PROCEDURE INFORMATION: Exam: CT Head Without Contrast Exam date and time: 11/11/2019 7:04 PM Age: 69 years old Clinical indication: Altered mental status/memory loss; Confusion or disorientation; Patient HX: HX of breast CA w mets presents w AMS TECHNIQUE: Imaging protocol: Computed tomography of the head without contrast. Radiation optimization: All CT scans at this facility use at least one of these dose optimization techniques: automated exposure control; mA and/or kV adjustment per patient size (includes targeted exams where dose is matched to clinical indication); or iterative reconstruction. COMPARISON: CT head wo con* [id number] 05/15/2018 5:14 PM RADIATION DOSE METRICS: Total DLP (mGy-cm): 871.5 FINDINGS: Brain: There is volume loss and periventricular low density compatible with chronic small vessel disease changes. There is no acute hemorrhage, edema or mass effect. Ventricles: No ventriculomegaly. Bones/joints: Unremarkable. No acute fracture. Paranasal sinuses: Visualized sinuses are unremarkable. No fluid levels. Mastoid air cells: Visualized mastoid air cells are well aerated. Soft tissues: Unremarkable. CT/CT head wo con* [id number] IMPRESSION: No acute intracranial abnormality. Radiation Dose CTDIVOL = (mGy): DLP = 871.5 (mGy-cm)
--- NOTE | 2019-11-11 18:46 | XRR_ITS ---
PROCEDURE INFORMATION: Exam: XR Chest, 1 View Exam date and time: 11/11/2019 7:17 PM Age: 69 years old Clinical indication: Other: N/v/d; Prior surgery; Surgery date: 6+ months; Patient HX: HX of breast cancer. AMS TECHNIQUE: Imaging protocol: XR of the chest Views: 1 view. COMPARISON: CT chest w con* [id number] 10/17/2019 1:46 PM FINDINGS: Tubes, catheters and devices: There is a right subclavian port with tip in the superior vena cava. Lungs: The lungs are hyperinflated. Pulmonary vascularity is within normal limits. No consolidation. Unchanged nodular density mid right lung Pleural space: Unremarkable. No pleural effusion. No pneumothorax. Heart/Mediastinum: Unremarkable. No cardiomegaly. Bones/joints: No acute abnormality. XR/XR chest 1V portable [id number] IMPRESSION: No acute findings.
--- NOTE | 2019-11-11 18:47 | ECG_ITS ---
[facility] Test Date: 2019-11-11 Pat Name: Luiza Salmon Department: Room: Gender: Female Education Dean: : 1950 Requested By: Bassem Desir Order Number: [id number] Dianne MD: Reyna Quinones M.D. Measurements Intervals [place] Rate: 108 P: 64 MT: 142 QRS: 19 QRSD: 81 T: 29 QT: 358 QTc: 480 Interpretive Statements SINUS TACHYCARDIA WITH OCCASIONAL VENTRICULAR PREMATURE COMPLEXES NONSPECIFIC T-WAVE ABNORMALITY ABNORMAL RHYTHM ECG Compared to ECG 10/16/2019 18:40:41 Ventricular premature complex(es) now present Sinus rhythm no longer present T-wave abnormality still present Electronically Signed On 11-12-2019 20:51:56 CDT by Reyna Quinones M.D. [id number]
--- NOTE | 2019-11-11 18:49 | ED_ITS ---
HPI - Weakness General: Stated complaint: AMS, N/V/D Time Seen by Provider: 11/11/19 18:40 Source: patient and EMS Mode of arrival: EMS Limitations: no limitations History of Present Illness: HPI Narrative: 69-year-old female who has a history of breast cancer with metastases. Patient had a recent admission for pancytopenia. Patient was brought in by EMS today for weakness along with hypotension. EMS states when he first arrived she was altered but patient is awake now and able answer all my questions. Patient is able to tell me the year and her name and where she is from. She denies any fever or recent illness. She states she has had transfusions in the past and is quite pale. Patient is hypotensive here as well with blood pressure 84/65. 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 H/O drainage of abscess Left thigh abscess drainage x2 with superficial venous thrombosis History of small bowel obstruction Hypertension Hypertension Osteoarthritis Osteoporosis Port-A-Cath in place Surgical History History of bilateral mastectomy History of modified radical mastectomy of left breast Family History Sister Cancer Sister had cervical cancer no other family with known breast cancer Social History Smoking and tobacco status: former smoker Alcohol intake: never Household members: family Housing: House Physical Exam Const: COMMON NORMALS: patient oriented x3 GENERAL APPEARANCE: ill appearing HENMT: COMMON NORMALS: normocephalic and atraumatic HEAD & SCALP: normo cephalic and atraumatic Eye: COMMON NORMALS: Equal, round and reactive pupils present and EOMs intact bilaterally PUPIL: Yes Equal, round and reactive pupils present Neck/C-Spine: COMMON NORMALS: full ROM and supple Chest: COMMONS NORMALS: normal inspection of the chest and normal palpation of entire chest wall Resp: COMMON NORMALS: normal respiratory effort, No retractions, No use of accessory muscles and clear to auscultation bilaterally AUSCULTATION: clear to auscultation bilaterally Cardio: COMMON NORMALS: regular rate, regular rhythm and No murmurs present (Cardio) RATE: regular rate RHYTHM: regular rhythm GI: COMMON NORMALS: Normal to inspection, nondistended, normoactive bowel sounds present, Soft to palpation, non-tender and no masses PALPATION: Yes Soft to palpation Extremity: COMMON NORMALS: normal to inspection and full ROM Neuro: COMMON NORMALS: patient oriented x3, moves all extremities and no focal motor deficits Psych: COMMON NORMALS: mental status grossly normal, Normal thought process present and cooperative THOUGHT PROCESS: Normal thought process present Skin: COMMON NORMALS: no rashes or lesions noted and no wounds NARRATIVE SKIN EXAM: pale GENERAL SKIN EXAM: no rashes or lesions noted Course Vital Signs: Vital signs: Vital Signs Temperature 97.7 F 11/11/19 21:15 Pulse Rate 102 H 11/11/19 21:15 Respiratory Rate 20 H 11/11/19 21:15 Blood Pressure 81/62 11/11/19 21:15 Pulse Oximetry 92 11/11/19 21:15 MDM - Weakness MDM Narrative: Medical decision making narrative: 2030 patient's lactate like. Patient started on IV antibiotics. Did start on a low-dose Levophed which I have since turned off. Patient had a very large bloody bowel movement and is pale. I believe patient is likely having a severe GI bleed she is likely anemic. We will give her 2 units of uncrossed blood at this time as she is unstable. Patient presents here with hypotension along with elevated lactate. Lactate could be from hemorrhagic shock from GI bleed. Patient given blood products here and started on levo fed. I discussed giving Andexxa with Dr. Regalado and will hold to see outpatients response to blood products. I also spoke to Dr. Henderson who is consulted. Patient's blood pressure has improved here and is now 90/60. Will admit to the ICU. Patient given IV antibiotics as well. Lab Data: Labs: Lab Results 11/11/19 11/11/19 11/11/19 Range/Units 18:55 18:55 18:55 WBC 24.9 H (4.0-10.0) 10^3/ uL RBC 2.44 L (4.1-5.3) 10^6/u L Hgb 7.7 L (11.5-15.3) g/dL Hct 25.7 L (37.0-47.0) % MCV 105.3 H (81-99) fL MCH 31.6 (28.0-34.0) pg MCHC 30.0 (30.0-36.0) g/dL RDW 17.1 H (12.1-15.1) % Plt Count 179 (130-400) 10^3/c mm MPV 9.9 (7.4-10.4) fL Neut % (Auto) 81.3 % Lymph % (Auto) 7.7 % [place] % (Auto) 6.0 % Eos % (Auto) 0.1 % Baso % (Auto) 0.4 % Neut # (Auto) 20.24 H (1.8-7.7) 10^3/u L Lymph # (Auto) 1.9 (0.8-4.8) 10^3/u L Hettinger # (Auto) 1.5 H (0.2-0.9) 10^3/u L Eos # (Auto) 0.0 (0.0-0.8) 10^3/u L Baso # (Auto) 0.1 (0.0-0.1) 10^3/u L Nucleated RBC % (a uto) 0.2 % Nucleated RBCs # 0.1 /100WBC PT 24.20 H (12.1-14.9) SECO NDS INR 2.09 H (0.8-1.2) Sodium 138 (136-145) mmol/L Potassium 4.5 (3.5-5.1) mmol/L Chloride 100 (98-107) mmol/L Carbon Dioxide 16 L (22-29) mmol/L Anion Gap 26.5 H (5-19) BUN 39 H (8-23) mg/dL Creatinine 1.3 H (0.5-0.9) mg/dL GFR Calculation 40.9 L (90-130) mL/min Glucose 217 H (65-115) mg/dL Calculated Osmolal ity 290 (285-295) mOsm/k g Lactate (0.5-2.2) mmol/L Calcium 8.3 L (8.5-10.5) mg/dL Magnesium 1.7 (1.7-2.3) mg/dL Total Bilirubin 0.7 (0.15-1.2) mg/dL AST 103 H (0-32) U/L ALT 57 H (0-33) U/L Alkaline Phosphata se 202 H (35-105) IU/L Total Protein 6.9 (6.6-8.7) g/dL Albumin 3.1 L (3.5-5.2) g/dL Globulin 3.8 (1.3-4.6) g/dL Urine Color (Yellow) Urine Appearance (CLEAR) Urine pH (5-7) Ur Specific Gravit y (1.005-1.030) Urine Protein (Negative) Urine Glucose (UA) (Normal) Urine Ketones (Negative) Urine Blood (Negative) Urine Nitrate (Negative) Urine Bilirubin (Negative) Urine Urobilinogen (Negative) mg/dL Ur Leukocyte Sally ase (Negative) Blood Type Rho(D) Type 11/11/19 11/11/19 11/11/19 Range/Units 18:55 18:55 20:49 WBC (4.0-10.0) 10^3/ uL RBC (4.1-5.3) 10^6/u L Hgb (11.5-15.3) g/dL Hct (37.0-47.0) % MCV (81-99) fL MCH (28.0-34.0) pg MCHC (30.0-36.0) g/dL RDW (12.1-15.1) % Plt Count (130-400) 10^3/c mm MPV (7.4-10.4) fL Neut % (Auto) % Lymph % (Auto) % [place] % (Auto) % Eos % (Auto) % Baso % (Auto) % Neut # (Auto) (1.8-7.7) 10^3/u L Lymph # (Auto) (0.8-4.8) 10^3/u L Hettinger # (Auto) (0.2-0.9) 10^3/u L Eos # (Auto) (0.0-0.8) 10^3/u L Baso # (Auto) (0.0-0.1) 10^3/u L Nucleated RBC % (a uto) % Nucleated RBCs # /100WBC PT (12.1-14.9) SECO NDS INR (0.8-1.2) Sodium (136-145) mmol/L Potassium (3.5-5.1) mmol/L Chloride (98-107) mmol/L Carbon Dioxide (22-29) mmol/L Anion Gap (5-19) BUN (8-23) mg/dL Creatinine (0.5-0.9) mg/dL GFR Calculation (90-130) mL/min Glucose (65-115) mg/dL Calculated Osmolal ity (285-295) mOsm/k g Lactate 8.5 H* (0.5-2.2) mmol/L Calcium (8.5-10.5) mg/dL Magnesium (1.7-2.3) mg/dL Total Bilirubin (0.15-1.2) mg/dL AST (0-32) U/L ALT (0-33) U/L Alkaline Phosphata se (35-105) IU/L Total Protein (6.6-8.7) g/dL Albumin (3.5-5.2) g/dL Globulin (1.3-4.6) g/dL Urine Color Yellow (Yellow) Urine Appearance Clear (CLEAR) Urine pH 5 (5-7) Ur Specific Gravit y 1.015 (1.005-1.030) Urine Protein Neg (Negative) Urine Glucose (UA) Norm (Normal) Urine Ketones 1+ H (Negative) Urine Blood Neg (Negative) Urine Nitrate Negative (Negative) Urine Bilirubin Neg (Negative) Urine Urobilinogen 1 H (Negative) mg/dL Ur Leukocyte Sally ase Negative (Negative) Blood Type O Positive Rho(D) Type Positive 11/11/19 Range/Units 20:54 WBC (4.0-10.0) 10^3/ uL RBC (4.1-5.3) 10^6/u L Hgb 6.7 L (11.5-15.3) g/dL Hct 22.2 L (37.0-47.0) % MCV (81-99) fL MCH (28.0-34.0) pg MCHC (30.0-36.0) g/dL RDW (12.1-15.1) % Plt Count (130-400) 10^3/c mm MPV (7.4-10.4) fL Neut % (Auto) % Lymph % (Auto) % [place] % (Auto) % Eos % (Auto) % Baso % (Auto) % Neut # (Auto) (1.8-7.7) 10^3/u L Lymph # (Auto) (0.8-4.8) 10^3/u L [place] # (Auto) (0.2-0.9) 10^3/u L Eos # (Auto) (0.0-0.8) 10^3/u L Baso # (Auto) (0.0-0.1) 10^3/u L Nucleated RBC % (a uto) % Nucleated RBCs # /100WBC PT (12.1-14.9) SECO NDS INR (0.8-1.2) Sodium (136-145) mmol/L Potassium (3.5-5.1) mmol/L Chloride (98-107) mmol/L Carbon Dioxide (22-29) mmol/L Anion Gap (5-19) BUN (8-23) mg/dL Creatinine (0.5-0.9) mg/dL GFR Calculation (90-130) mL/min Glucose (65-115) mg/dL Calculated Osmolal ity (285-295) mOsm/k g Lactate (0.5-2.2) mmol/L Calcium (8.5-10.5) mg/dL Magnesium (1.7-2.3) mg/dL Total Bilirubin (0.15-1.2) mg/dL AST (0-32) U/L ALT (0-33) U/L Alkaline Phosphata se (35-105) IU/L Total Protein (6.6-8.7) g/dL Albumin (3.5-5.2) g/dL Globulin (1.3-4.6) g/dL Urine Color (Yellow) Urine Appearance (CLEAR) Urine pH (5-7) Ur Specific Gravit y (1.005-1.030) Urine Protein (Negative) Urine Glucose (UA) (Normal) Urine Ketones (Negative) Urine Blood (Negative) Urine Nitrate (Negative) Urine Bilirubin (Negative) Urine Urobilinogen (Negative) mg/dL Ur Leukocyte Sally ase (Negative) Blood Type Rho(D) Type EKG Data^: EKG 1: Attestation: I personally reviewed and interpreted this EKG as follows: EKG interpretation date: 11/11/19 EKG interpretation time: 21:16 Interpretation: sinus tach hr [address] or t wave abnormalities qrs 81 qtc 421 Critical Care Time Critical Care Time: Critical Care Time: Yes Total Critical Care Time: 36 Attestation: This case had a high probability of a clinically significant, sudden, or life threatening deterioration of this patient's condition which required my full and direct attention, intervention and personal management. Discharge Plan Discharge Patient Disposition: Admitted As Inpatient Clinical Impression: Acute GI bleeding Breast cancer metastasized to multiple sites Qualifiers: Laterality: left Qualified Code(s): C50.912 - Malignant neoplasm of unspecified site of left female breast Open wound of chest (wall), complicated Qualifiers: Encounter type: subsequent encounter Laterality: left Qualified Code(s): S21.102D - Unspecified open wound of left front wall of thorax without penetration into thoracic cavity, subsequent encounter Anemia Qualifiers: Anemia type: unspecified type Qualified Code(s): D64.9 - Anemia, unspecified Condition: Stable Referrals: Holly Hernandez FNP [Primary Care Provider] - Coding Level of Care Code ED Salvage Machine Operator for Chg Fwd Exam Comprehensive
[2019-11-11 19:15] LABS: Basophils # 0.1 10^3/uL (0.0-0.1); Basophils % 0.4 %; Eosinophils % 0.1 %; Hematocrit 25.7 % (37.0-47.0); Hemoglobin 7.7 g/dL (11.5-15.3); INR 2.09 (0.8-1.2); Lymphocytes # 1.9 10^3/uL (0.8-4.8); Lymphocytes % 7.7 %; Mean Corpuscular Hemoglobin 31.6 pg (28.0-34.0); Mean Corpuscular Volume 105.3 fL (81-99); Mean Platelet Volume 9.9 fL (7.4-10.4); Monocytes # 1.5 10^3/uL (0.2-0.9); Neutrophils # 20.24 10^3/uL (1.8-7.7); Neutrophils % 81.3 %; Nucleated Red Blood Cells # 0.1 /100WBC; Nucleated Red Blood Cells % 0.2 %; Platelet Count 179 10^3/cmm (130-400); Red Blood Count 2.44 10^6/uL (4.1-5.3); Red Cell Distribution Width 17.1 % (12.1-15.1); White Blood Count 24.9 10^3/uL (4.0-10.0)
[2019-11-11 19:25] LABS: Alanine Aminotransferase 57 U/L (0-33); Albumin Level 3.1 g/dL (3.5-5.2); Alkaline Phosphatase 202 IU/L (35-105); Anion Gap 26.5 (5-19); Aspartate Amino Transferase 103 U/L (0-32); Blood Urea Nitrogen 39 mg/dL (8-23); Calcium 8.3 mg/dL (8.5-10.5); Carbon Dioxide 16 mmol/L (22-29); Chloride 100 mmol/L (98-107); Globulin 3.8 g/dL (1.3-4.6); Glomerular Filtration Rate 40.9 mL/min (90-130); Glucose 217 mg/dL (65-115); Magnesium 1.7 mg/dL (1.7-2.3); Osmolality Calculated 290 mOsm/kg (285-295); Potassium 4.5 mmol/L (3.5-5.1); Sodium 138 mmol/L (136-145); Total Bilirubin 0.7 mg/dL (0.15-1.2); Total Protein 6.9 g/dL (6.6-8.7)
[2019-11-11 19:56] LABS: Lactate (Lactic Acid level) 8.5 mmol/L (0.5-2.2)
[2019-11-11] MEDS: ondansetron 2 mg/ML SDV 2 mL 4 MG IVP (20:15)
[2019-11-11] MEDS: piperacillin-tazobactam 3.375 GM in sodium chloride 0.9% (plus) 50 ML IV (20:16)
[2019-11-11] MEDS: sodium chloride 0.9% 1,000 ML 999 ML IV (20:18)
[2019-11-11] MEDS: vancomycin 1,000 MG in sodium chloride 0.9% 250 ML 250 MG IV (20:30)
[2019-11-11] MEDS: pantoprazole 40 MG in sodium chloride 0.9% (plus) 100 ML 20 MG IV (20:40)
[2019-11-11 21:04] LABS: Hematocrit 22.2 % (37.0-47.0); Hemoglobin 6.7 g/dL (11.5-15.3)
[2019-11-11 21:37] LABS: Add Urine Microscopic? NO
[2019-11-11 21:46] LABS: Bilirubin Urine Neg (Negative); Blood Urine Neg (Negative); Glucose Urine UA Norm (Normal); Ketones Urine 1+ (Negative); Leukocyte Esterase Urine Negative (Negative); Nitrate Urine Negative (Negative); Protein Urine Neg (Negative); Specific Gravity, Urine 1.015 (1.005-1.030); Urine Appearance Clear (CLEAR); Urine Color Yellow (Yellow); Urobilinogen Urine 1 mg/dL (Negative); pH Urine 5 (5-7)
--- NOTE | 2019-11-11 22:12 | P.HP_ITS ---
Providers/Chief Complaint Admitting Physician: Sabine Primary Care Provider: REY Patten Chief Complaint: AMS, N/V/D History of Present Illness Luiza Salmon is a 69 year old female who presented to the emergency room with some pain in her abdomen and generally not feeling well. She has a known history of metastatic breast cancer and has been declining over the last few months. Last dose of chemotherapy resulted in significant pancytopenia. The last dose was administered on October 09 and she has not had any additional since then. Pain was located in the periumbilical region. She describes it as just hurting . She rated up to a 6 out of 10 at its worst. She denies any fever or cough. She had a bit of a runny nose. She has had similar pain off and on before but not this bad. She also reports that her heartburn and indigestion, reflux is been getting progressively worse to the point that she does not think the Protonix is working very much anymore. While in the emergency room patient had large-volume bright red blood per rectum. She is never had an EGD and colonoscopy. She is on Eliquis chronically for superficial thrombosis recurrent that required intervention in the past. She cannot remember exactly when her last dose of Eliquis was. She received 2 uncrossed matched units of blood in the emergency room and is currently in the process of getting additional units of blood. Her hemoglobin at presentation was 7 and dropped to 6. When she was last discharged from the hospital hemoglobin was around 9. Patient denies ever having had GI bleed before. She was quite hypotensive in the emergency room and ultimately required initiation of pressor support. Her last dose of morphine was yesterday evening. She reports her bowels have been regular prior to this event for her. Review of Systems Const: Denies: fever(s) or chills Eyes: Denies: change in vision ENMT: Denies: throat pain, dry mouth or nasal congestion Card: Reports: chest pain (Chest wall pain around her rib cage); Denies: palpitations or edema Resp: Denies: dyspnea, productive cough or non-productive cough GI: Reports: heartburn and hematochezia (Started in the emergency room, patient denies prior to that); Denies: abdominal pain, nausea, vomiting, dysphagia, diarrhea or constipation Musc: Denies: extremity pain Skin/Breast: Reports: lesions (Left chest wall, has packing daily); Denies: rash or pruritus Neuro: Reports: numbness in extremities (Related to chemotherapy), weakness in extremities and dizziness; Denies: headache(s) Psych: Denies: anxiety or depression Ayush/Lymph: Denies: easy bruising or easy bleeding Medications/Allergies Home Medications Medication Instructions Recorded Confirmed Last Taken Type Eliquis 5 mg PO BID 10/16/19 10/16/19 10/15/19 History Oyster Shell Calcium-Vit D3 1 tab PO BID 10/16/19 10/16/19 10/15/19 History Vitamin B-12 1,000 mcg PO DAILY 10/16/19 10/16/19 Unknown History Vitamin D2 50,000 unit PO Q30D 10/16/19 10/16/19 Unknown History Zofran 4 - 8 mg PO Q4H PRN 10/16/19 10/16/19 Unknown History gabapentin 600 mg PO TID 10/16/19 10/16/19 Unknown History levofloxacin 500 mg PO DAILY 10/16/19 10/16/19 10/15/19 History lorazepam 0.5 mg PO BEDTIME 10/16/19 10/16/19 Unknown History magnesium oxide 400 mg PO BID 10/16/19 10/16/19 Unknown History pantoprazole 40 mg PO DAILY 10/16/19 10/16/19 10/15/19 History potassium chloride 10 meq PO BID 10/16/19 10/16/19 10/15/19 History morphine 15 mg PO TID PRN #20 tab 10/22/19 Unknown Rx nystatin [Nystop] 1 applic TOPICAL BID #100 g 10/22/19 Unknown Rx sennosides-docusate sodium 1 tab PO DAILY #30 tab 10/22/19 Unknown Rx Allergies Allergy/AdvReac Type Severity Reaction Status Date / Time No Known Allergies Allergy Verified 10/17/19 17:46 PFSH Acute PFSH: Medical History Arthritis Previously diagnosed as rheumatoid Bakers cyst GERD (gastroesophageal reflux disease) History of bilateral breast cancer L --inflammatory breast cancer 2008, R --infiltrating ductal carcinoma 2017 History of pancytopenia from chemotherapy, has required transfusion Hypertension Osteoarthritis Osteoporosis 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, reason on eliquis Surgical History H/O drainage of abscess Suspected left thigh abscess x2 (no fluid collections encountered) with superficial venous thrombosis History of bilateral breast biopsy History of modified radical mastectomy of left breast (~2008) History of right mastectomy (~2016) with low axillary dissection Port-A-Cath in place (~2008) Family History Sister Cancer Sister had cervical cancer no other family with known breast cancer Social History Smoking and tobacco status: former smoker Alcohol intake: never Household members: family Housing: House Vitals/I&O/Wt Last Vital Signs Temp 97.7 F 11/11/19 21:15 Pulse 102 H 11/11/19 21:15 Resp 20 H 11/11/19 21:15 BP 81/62 11/11/19 21:15 Pulse Ox 92 11/11/19 21:15 Physical Exam Const: OTHER: Alert, oriented x3, cooperative, ill-appearing HENMT: OTHER: Normocephalic atraumatic, dry mucous membranes, fair dentition, no mucosal sores noted Eye: OTHER: Right pupil is larger than left pupil Neck/C-Spine: OTHER: Supple Chest: OTHER: Patient with area of erythema and skin discoloration to the left chest wall. There is an open wound more medially and this with gauze packing in place. There is a faint malodorous smell and some oozing of blood noted. Dr brar that was over this had a large area of dried blood on it also. No areas of fluctuance, not able to express any purulent material from the wound. Area is tender to palpation Resp: OTHER: Clear to auscultation bilaterally, no rales, rhonchi or wheezes noted, no accessory muscle use noted Cardio: OTHER: Regular rate and rhythm, no gallops or rubs, patient does have a systolic murmur that review of records indicates is been noted previously GI: OTHER: Abdomen soft, mild periumbilical tenderness but without any rebound or guarding noted, positive bowel sounds : OTHER: Deferred Extremity: NARRATIVE EXTREMITY EXAM: No pitting edema Neuro: OTHER: Speech clear, moves all extremities Psych: OTHER: Normal affect Skin: OTHER: See chest wall examination for details of that wound. Otherwise patient skin is dry, no mottling although extremities are cool distally. No other wounds are noted Data : 11/12/19 03:45 11/12/19 03:45 Other Labs: Laboratory Tests 11/11/19 11/11/19 11/11/19 18:55 18:55 18:55 WBC 24.9 H Hgb 7.7 L MCV 105.3 H Plt Count 179 INR 2.09 H Sodium 138 Potassium 4.5 Chloride 100 Carbon Dioxide 16 L Anion Gap 26.5 H BUN 39 H Creatinine 1.3 H Glucose 217 H Lactate Calcium 8.3 L Magnesium 1.7 Total Bilirubin 0.7 AST 103 H ALT 57 H Alkaline Phosphatase 202 H Albumin 3.1 L 11/11/19 11/11/19 18:55 20:54 WBC Hgb 6.7 L MCV Plt Count INR Sodium Potassium Chloride Carbon Dioxide Anion Gap BUN Creatinine Glucose Lactate 8.5 H* Calcium Magnesium Total Bilirubin AST ALT Alkaline Phosphatase Albumin Urine 11/11/19 Range/Units 20:49 Urine Color Yellow (Yellow) Urine Appearance Clear (CLEAR) Urine pH 5 (5-7) Ur Specific Edmond 1.015 (1.005-1.030) Urine Protein Neg (Negative) Urine Glucose (UA) Norm (Normal) Micro: Microbiology 11/11/19 18:59 Blood Culture - Preliminary Blood SPECIMEN COLLECTED 11/11/19 18:55 Blood Culture - Preliminary Blood SPECIMEN COLLECTED A&P Assessment and plan (1) Acute GI bleeding: Based on history would suspect upper source with her worsening reflux symptoms but the description of GI bleeding today is likely lower in nature. Status: Acute (2) Acute blood loss anemia: On top of anemia related to chemotherapy/chronic disease Status: Acute (3) Chronic anticoagulation: Has been on Eliquis secondary to recurrent superficial thrombophlebitis necessitating intervention Status: Chronic (4) Shock, unspecified: I am suspecting that she is currently having hypovolemic shock but with wound to left chest wall and current GI issues, cannot rule out an acute infection as the source of hypotension necessitating pressors Status: Acute (5) Lactic acidosis: Could be from GI losses, sepsis, malignancy Status: Acute (6) Acute renal failure: Earlier this month creatinine was 0.9. BUN is also up quite a bit which I attribute to GI bleeding at least in part. Suspect a component of ATN hypo tension currently. Status: Acute Qualifiers: Acute renal failure type: with acute tubular necrosis Qualified Code(s): N17.0 - Acute kidney failure with tubular necrosis (7) Open wound of chest (wall), complicated: Currently undergoing dressing changes every few days at home Status: Chronic Qualifiers: Encounter type: subsequent encounter Laterality: left Qualified Code(s): S21.102D - Unspecified open wound of left front wall of thorax without penetration into thoracic cavity, subsequent encounter (8) Breast cancer metastasized to multiple sites: Dr. Sainz has an excellent note with date 11/07/2019. He indicates that she may ultimately only be a candidate for symptomatic or supportive care going forward if she does recovers sufficiently enough from the toxicity she exp erienced from last round of chemotherapy in September Status: Chronic Qualifiers: Laterality: left Qualified Code(s): C50.912 - Malignant neoplasm of unspecified site of left female breast (9) Cancer associated pain: Has available narcotics if needed but does not take them regularly Status: Chronic (10) GERD (gastroesophageal reflux disease): Progressively worsening and according to the patient does not really respond to Protonix anymore Status: Chronic Qualifiers: Esophagitis presence: esophagitis presence not specified Qualified Code(s): K21.9 - Gastro-esophageal reflux disease without esophagitis Additional A&P Information Inpatient ICU admission Dr. Henderson has been consulted by ER physician for evaluation of endoscopy Continue transfusion as currently ordered rechecking H&H IV PPI Keep n.p.o. except for sips and chips until evaluated by surgery Eliquis is currently stopped. I did discuss with ED whether or not to consider Andexxa but without further gross bleeding at this point in time, lack of further decline with measures that have already been instituted and an unclear timeframe from when she last took her Eliquis will not administer at this time. Given what Eliquis was for I do not know that it is going to be safe to resume it upon discharge or at any point in the future but we will have to see how she does Continue IV fluids and pressor support, weaning pressor support as able Empiric antibiotic coverage presently with vancomycin and Zosyn as started in the emergency room Wound care Recheck lactic acid Follow-up pending cultures Antiemetics as needed Majority of home medications are currently held Mclain catheter is in place for close monitoring of urine output in a critically ill patient Supportive care otherwise Full code as per discussion with patient Attestations Medical Necessity Statement*: Anticipate hospital stay greater than 2 midnights in a patient presenting with symptoms as noted above found to have acute GI bleed necessitating transfusion of multiple units of packed red blood cells. She has multiple comorbid conditions including metastatic breast cancer. Plans are as noted. 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
--- NOTE | 2019-11-11 23:58 | PC.NURSE ---
VITAL SIGNS PER MONITOR PRINT OUT
[2019-11-12] VITALS (156 sets, daily range): BP systolic 95–132; BP diastolic 56–78; PULSE 79–98; RESP 13–32; TEMP 36.4–37.4; O2SAT 95–100
[2019-11-12] MEDS: ondansetron 2 mg/ML SDV 2 mL 4 MG IVP ×3 (00:30→19:28)
[2019-11-12] MEDS: pantoprazole 40 MG in sodium chloride 0.9% (plus) 100 ML 20 MG IV (00:34)
[2019-11-12] MEDS: sodium chloride 0.9% 1,000 ML 150 ML IV (00:36)
--- NOTE | 2019-11-12 03:42 | P.CONIM_ITS ---
Providers/Reason For Consult Consulting Physican/Specialty*: General Surgery Jd Henderson MD Reason for Consult*: Hematochezia. Attending Physician: Kassidy Regalado MD Primary Care Provider: REY Patten History of Present Illness History of Present Illness Luiza Salmon is a 69 year old female admitted last evening with bright red blood per rectum. She says she was having a bowel movement last evening and started passing some bright red blood. This is a new sign for her. She denies this happening in the past. She does have a long history of abdominal pain. She has no previous diagnoses of peptic ulcer disease or bleeding sources in the colon. She has never had endoscopy. She denies any family history of upper or lower GI neoplasia. She does have a longstanding history of GERD but it sounds like this is been fairly asymptomatic recently. She denies any ongoing NSAID use. She is on Eliquis at home for history of a venous thrombosis. Eliquis is currently on hold. 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) Meds/Allergies Home Medications and Allergies Home Medications Medication Instructions Recorded Confirmed Last Taken Type Eliquis 5 mg PO BID 10/16/19 10/16/19 10/15/19 History Oyster Shell Calcium-Vit D3 1 tab PO BID 10/16/19 10/16/19 10/15/19 History Vitamin B-12 1,000 mcg PO DAILY 10/16/19 10/16/19 Unknown History Vitamin D2 50,000 unit PO Q30D 10/16/19 10/16/19 Unknown History Zofran 4 - 8 mg PO Q4H PRN 10/16/19 10/16/19 Unknown History gabapentin 600 mg PO TID 10/16/19 10/16/19 Unknown History levofloxacin 500 mg PO DAILY 10/16/19 10/16/19 10/15/19 History lorazepam 0.5 mg PO BEDTIME 10/16/19 10/16/19 Unknown History magnesium oxide 400 mg PO BID 10/16/19 10/16/19 Unknown History pantoprazole 40 mg PO DAILY 10/16/19 10/16/19 10/15/19 History potassium chloride 10 meq PO BID 10/16/19 10/16/19 10/15/19 History morphine 15 mg PO TID PRN #20 tab 10/22/19 Unknown Rx nystatin [Nystop] 1 applic TOPICAL BID #100 g 10/22/19 Unknown Rx sennosides-docusate sodium 1 tab PO DAILY #30 tab 10/22/19 Unknown Rx Allergies Allergy/AdvReac Type Severity Reaction Status Date / Time No Known Allergies Allergy Verified 10/17/19 17:46 Current Medications Current Medications Generic Name Dose Route Start Last Admin Trade Name Freq PRN Reason Stop Dose Admin Sodium Chloride 1,000 mls @ 150 mls/hr 11/12/19 00:18 11/12/19 00:36 Sodium Chloride 0.9% IV 11/12/19 06:57 150 mls/hr .Q6H40M JANE Administration Ondansetron HCl 4 mg 11/12/19 00:18 11/12/19 00:30 Zofran IVP 4 mg Q6H PRN Administration NAUSEA AND VOMITING PFSH Acute PFSH: Medical History (Updated 11/12/19 @ 03:51 by Jd Henderson MD) Arthritis Previously diagnosed as rheumatoid Bakers cyst Breast cancer metastasized to bone (~2008) Stage IIIb ER [place] negative 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, 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 positive [place] negative HER-2 negative stage IV metastatic to bone, liver, lymph nodes GERD (gastroesophageal reflux disease) History of bilateral breast cancer L --inflammatory breast cancer 2008 R --infiltrating ductal carcinoma 2016 History of pancytopenia from chemotherapy, has required transfusion Hypertension Osteoarthritis Osteoporosis 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, reason on eliquis Surgical History (Updated 11/12/19 @ 03:51 by Jd Henderson MD) H/O drainage of abscess Suspected left thigh abscess x2 (no fluid collections encountered) with superficial venous thrombosis History of bilateral breast biopsy History of modified radical mastectomy of left breast (~2008) History of right mastectomy (~2016) with low axillary dissection Port-A-Cath in place (~2008) Family History Sister Cancer Sister had cervical cancer no other family with known breast cancer Social History Smoking and tobacco status: former smoker Alcohol intake: never Household members: family Housing: House Vitals/I&O/Wt Last Vital Signs Temp 97.6 F 11/12/19 00:05 Pulse 85 11/12/19 01:25 Resp 19 H 11/12/19 01:25 BP 101/70 11/12/19 01:25 Pulse Ox 100 11/12/19 01:25 Weight last 48 hrs Weight 149 lb Physical Exam Narrative: EXAM NARRATIVE: The patient was encountered in the ICU. She does not appear to be in any acute distress and in fact, is resting when I first came to speak to her. She is easily arousable. The pupils seem equal. No carotid bruits are heard. The lungs are clear anteriorly. The heart seems regular. The left chest wall shows a small superficial opening measuring perhaps 1.5 cm in diameter that is packed with some gauze. She has some discoloration of her previous mastectomy site, presumably the result of radiation treatment. The abdomen is moderately obese but is soft. She has some diffuse scattered tenderness but nothing that seems to be always reproducible. The extremities reveal no significant edema. The patient can move all limbs to command. Urinary Catheter Management^: Mclain: Cath Placed During This Visit: yes Urinary Catheter Date of Insertion: 11/11/19 Urinary Catheter Time of Insertion: 20:56 Data Micro: Micro: Microbiology 11/11/19 18:59 Blood Culture - Pr eliminary Blood SPECIMEN [facility] 11/11/19 18:55 Blood Culture - Pr eliminary Blood SPECIMEN [facility] Imaging^: CT Abd/Pel: Radiologist's impression: CT abdomen/pelvis 10/16/2019 iMPRESSION: Imaging findings felt to represent diffuse metastatic disease throughout the liver. Additional pathological adenopathy in the allyn hepatis and also in the retroperitoneum superiorly between the IVC and aorta most likely metastatic involvement as well. Suspicion for bony metastasis as well. No bowel obstruction, free air or free fluid. No renal or ureteral calculus or obstructive uropathy. A&P Assessment and plan (1) Acute GI bleeding: The patient last had some blood per rectum around midnight according to ICU nursing. Currently, she is fairly comfortable. Status: Acute (2) Chronic anticoagulation: The patient normally takes Eliquis. I am hoping that with cessation of her Eliquis the bleeding will stop quickly. We did briefly discuss endoscopy as an option. Decisions regarding this will be made in the days to come based on the patient's wishes and clinical progress. Status: Chronic (3) Breast cancer metastasized to multiple sites: The patient appears to have widely metastatic breast cancer by CT last month. Status: Chronic Qualifiers: Laterality: left Qualified Code(s): C50.912 - Malignant neoplasm of unspecified site of left female breast Consult Attestations Medical Necessity Statement: See admitting service's notation. 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
[2019-11-12 04:27] LABS: Basophils # 0.1 10^3/uL (0.0-0.1); Basophils % 0.3 %; Hemoglobin 8.4 g/dL (11.5-15.3); Lymphocytes # 1.3 10^3/uL (0.8-4.8); Lymphocytes % 7.9 %; Mean Corpuscular HGB Conc 32.3 g/dL (30.0-36.0); Mean Corpuscular Hemoglobin 31.2 pg (28.0-34.0); Mean Corpuscular Volume 96.7 fL (81-99); Monocytes # 1.2 10^3/uL (0.2-0.9); Monocytes % 7.1 %; Neutrophils % 81.9 %; Nucleated Red Blood Cells % 0.2 %; Platelet Count 109 10^3/cmm (130-400); Red Blood Count 2.69 10^6/uL (4.1-5.3); White Blood Count 16.9 10^3/uL (4.0-10.0)
[2019-11-12] MEDS: piperacillin-tazobactam 3.375 GM in sodium chloride 0.9% (plus) 50 ML IV ×3 (04:30→20:19)
[2019-11-12 04:52] LABS: INR 1.79 (0.8-1.2)
[2019-11-12 05:00] LABS: Lactate (Lactic Acid level) 1.4 mmol/L (0.5-2.2)
[2019-11-12 05:01] LABS: Alanine Aminotransferase 47 U/L (0-33); Albumin Level 2.5 g/dL (3.5-5.2); Alkaline Phosphatase 155 IU/L (35-105); Anion Gap 18.2 (5-19); Aspartate Amino Transferase 92 U/L (0-32); Blood Urea Nitrogen 41 mg/dL (8-23); Calcium 6.7 mg/dL (8.5-10.5); Carbon Dioxide 19 mmol/L (22-29); Chloride 107 mmol/L (98-107); Globulin 2.7 g/dL (1.3-4.6); Glomerular Filtration Rate 55.3 mL/min (90-130); Glucose 132 mg/dL (65-115); Magnesium 1.4 mg/dL (1.7-2.3); Osmolality Calculated 290 mOsm/kg (285-295); Phosphorus 3.3 mg/dL (2.5-4.5); Potassium 4.2 mmol/L (3.5-5.1); Sodium 140 mmol/L (136-145); Total Bilirubin 0.7 mg/dL (0.15-1.2); Total Protein 5.2 g/dL (6.6-8.7)
[2019-11-12] MEDS: sodium chlor 0.9% + KCl 20 mEq 20 MEQ/1,000 ML BAG 75 MEQ IV ×2 (06:07→18:25)
[2019-11-12] MEDS: pantoprazole 40 mg SDV IVP ×2 (08:49→20:20)
--- NOTE | 2019-11-12 10:02 | P.PN_ITS ---
Subjective Subjective: Interval history: The patient has no new complaints this morning. She says that she has not had a bowel movement since midnight. Vitals/I&O/Wt Last Vital Signs Temp 98.2 F 11/12/19 07:00 Pulse 89 11/12/19 09:45 Resp 29 H 11/12/19 09:45 BP 111/67 11/12/19 09:45 Pulse Ox 100 11/12/19 09:45 11/11/19 11/12/19 11/12/19 22:59 06:59 14:59 Intake Total 30 / 30 278.25 / 278.25 Output Total 300 / 300 Balance -270 / -270 278.25 / 278.25 Weight last 48 hrs Weight 149 lb Weight 149 lb Physical Exam Narrative: EXAM NARRATIVE: Continued scattered abdominal tenderness (chronic). Urinary Catheter Management^: Mclain: Cath Placed During This Visit: yes Reason for Continuing Indwelling Catheter: Accurate Measurement of Urinary Output in Critically Ill Patients Urinary Catheter Date of Insertion: 11/11/19 Urinary Catheter Time of Insertion: 20:56 Data : 11/12/19 03:45 11/12/19 03:45 Micro: Microbiology 11/11/19 18:59 Blood Culture - Preliminary Blood SPECIMEN COLLECTED 11/11/19 18:55 Blood Culture - Preliminary Blood SPECIMEN COLLECTED A&P Assessment and plan (1) Acute GI bleeding: The patient has not had any further evidence of bleeding since around midnight. I discussed endoscopy with the patient. If she does not have any continued bleeding I think this would remain an option, but perhaps not absolutely necessary given all of her other medical issues. She is going to give it some thought. Status: Acute (2) Chronic anticoagulation: The patient normally takes Eliquis. I am hoping that with cessation of her Eliquis the bleeding will stop quickly. We did briefly discuss endoscopy as an option. Decisions regarding this will be made in the days to come based on the patient's wishes and clinical progress. Status: Chronic (3) Breast cancer metastasized to multiple sites: The patient appears to have widely metastatic breast cancer by CT last month. Status: Chronic Qualifiers: Laterality: left Qualified Code(s): C50.912 - Malignant neoplasm of unspecified site of left female breast Attestations Medical Necessity Statement*: See admitting service's notation. Coding Level of Care Code Acute Vascular Nurse for [facility]iss Shelton Diagnoses Acute GI bleeding K92.2 Chronic anticoagulation Z79.01 Breast cancer metastasized to multiple sites C50.912 Laterality: left
[2019-11-12] MEDS: fentaNYL 50 mcg/mL INJ 2mL 25 MCG IVP ×2 (10:55→15:55)
[2019-11-12 11:05] LABS: Hematocrit 22.9 % (37.0-47.0); Hemoglobin 7.7 g/dL (11.5-15.3)
--- NOTE | 2019-11-12 12:49 | PC.CHAP ---
Pastoral Care Encounter/Spiritual Assessment Type of Contact [] Declined oracle solutions architect visit [] Patient/Family/Request visit [] Outpatient visit [] Follow-up visit [] Physician referral [] Code/Alert [] Routine visit [] Staff referral [] Actively dying [] Patient sleeping [] Family support [] [] Out of room [] Palliative care [] [x] Receiving care in room [] Pre-surgical visit [] Trauma [] Long length of stay [x] ICU visit [] Other: Relational/Emotional Strength [] Patient feels connected with others/family/visitors/staff [] Distress [] Loneliness/isolation [] Abandonment Spirituality of Patient [] Person of Aline [] Attends Pentecostalism of their Aline [] Believes in Prayer [] Reads Bible or Episcopal materials [] There are Spiritual issues to be addressed Forest Resource Specialist Interventions [] Prayer [] Active listening [] Non-anxious presence [] Spiritual/emotional support [] Crisis/trauma care [] Spiritual counseling [] Bereavement support [] Provided bereavement packet [] Provided Bible/devotional materials [] Provided toy/stuffed animal, coloring book to patient or family member [] Provided Communion [] Anointing/[place] [] Salvation [] Completed spiritual assessment [] Other: Impact on Illness or Injury [] Angry [] Fearful [] Anxious [] Often cries [] Exhaustion [] Unable to work [] Unable to attend jainism [] Unable to walk/stand [] Unable to read [] Unable to drive [] Unable to eat/drink [] Unable to sleep [] Unable to be with family [] Patient intubated [] Other: Summary Patient was r4e Time spent with patient
--- NOTE | 2019-11-12 12:50 | PC.CHAP ---
Pastoral Care Encounter/Spiritual Assessment Type of Contact [] Declined senior marketing manager visit [] Patient/Family/Request visit [] Outpatient visit [] Follow-up visit [] Physician referral [] Code/Alert [] Routine visit [] Staff referral [] Actively dying [] Patient sleeping [] Family support [] [] Out of room [] Palliative care [] [x] Receiving care in room [] Pre-surgical visit [] Trauma [] Long length of stay [x] ICU visit [] Other: Relational/Emotional Strength [] Patient feels connected with others/family/visitors/staff [] Distress [] Loneliness/isolation [] Abandonment Spirituality of Patient [] Person of Aline [] Attends Jainism of their Aline [] Believes in Prayer [] Reads Bible or Restoration materials [] There are Spiritual issues to be addressed Sheet Metal Worker Supervisor Interventions [] Prayer [] Active listening [] Non-anxious presence [] Spiritual/emotional support [] Crisis/trauma care [] Spiritual counseling [] Bereavement support [] Provided bereavement packet [] Provided Bible/devotional materials [] Provided toy/stuffed animal, coloring book to patient or family member [] Provided Communion [] Anointing/[place] [] Salvation [] Completed spiritual assessment [] Other: Impact on Illness or Injury [] Angry [] Fearful [] Anxious [] Often cries [] Exhaustion [] Unable to work [] Unable to attend rastafari [] Unable to walk/stand [] Unable to read [] Unable to drive [] Unable to eat/drink [] Unable to sleep [] Unable to be with family [] Patient intubated [] Other: Summary Patient was receiving care from the nursing staff at the time of the senior marketing manager visit. Referred patient for a follow up visit from next senior marketing manager. Patient visit attempted by Sheet Metal Worker Supervisor Nghia Felder. Time spent with patient 3 minutes
--- NOTE | 2019-11-12 13:59 | PM.PN ---
Subjective Subjective: Interval history: HB up to 8.4 after 2 units transfusion, repeat at 7.7, continues to feel weak, also reports some dizziness. Off levophed drip now as of this morning. Bp is stable. No further bloody BM episodes, no hematemesis. 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 Urinary Catheter Management^: Mclain: Cath Placed During This Visit: yes Reason for Continuing Indwelling Catheter: Accurate Measurement of Urinary Output in Critically Ill Patients Urinary Catheter Date of Insertion: 11/11/19 Urinary Catheter Time of Insertion: 20:56 Data : 11/12/19 10:48 11/12/19 03:45 Micro: Microbiology 11/11/19 18:59 Blood Culture - Preliminary Blood SPECIMEN COLLECTED 11/11/19 18:55 Blood Culture - Preliminary Blood SPECIMEN COLLECTED A&P Assessment and plan (1) Acute GI bleeding: Status: Acute (2) Acute blood loss anemia: Status: Acute (3) Chronic anticoagulation: Status: Chronic (4) Shock, unspecified: Status: Acute (5) Lactic acidosis: Could be from GI losses, sepsis, malignancy Status: Acute (6) Acute renal failure: Status: Acute Qualifiers: Acute renal failure type: with acute tubular necrosis Qualified Code(s): N17.0 - Acute kidney failure with tubular necrosis (7) Open wound of chest (wall), complicated: Status: Chronic Qualifiers: Encounter type: subsequent encounter Laterality: left Qualified Code(s): S21.102D - Unspecified open wound of left front wall of thorax without penetration into thoracic cavity, subsequent encounter (8) Breast cancer metastasized to multiple sites: Status: Chronic Qualifiers: Laterality: left Qualified Code(s): C50.912 - Malignant neoplasm of unspecified site of left female breast (9) Cancer associated pain: Status: Chronic (10) GERD (gastroesophageal reflux disease): Progressively worsening and according to the patient does not really respond to Protonix anymore Status: Chronic Qualifiers: Esophagitis presence: esophagitis presence not specified Qualified Code(s): K21.9 - Gastro-esophageal reflux disease without esophagitis Additional A&P Information # GI bleeding s/p transfusion of 2 units yesetrday, one more unit ordered after drop to 7.7 Dr. Henderson has been consulted by ER physician for evaluation of endoscopy, appreciate recommendations Continue transfusion as currently ordered rechecking H&H this evening IV PPI protonix to continue Keep n.p.o. except for sips and chips Eliquis is currently stopped. Off pressor support # leukocytosis , recent chemo, will find out when patient last received neupogen No obvious source of acute infection appearent, however continue empiric abx until sepsis w/up. 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 Dvt ppx: contraindicated due to Gi bleeding full code Attestations Medical Necessity Statement*: GI bleeding, awaiting evaluation for EGD Coding Level of Care Code Acute Supervisor Shellfish Farming for g Fwd Diagnoses Acute GI bleeding K92.2 Acute blood loss anemia D62 Chronic anticoagulation Z79.01 Shock, unspecified R57.9 Lactic acidosis E87.2 Acute renal failure N17.0 Acute renal failure type: with acute tubular necrosis Open wound of chest (wall), complicated S21.102D Encounter type: subsequent encounter Laterality: left Breast cancer metastasized to multiple sites C50.912 Laterality: left Cancer associated pain G89.3 GERD (gastroesophageal reflux disease) K21.9 Esophagitis presence: esophagitis presence not specified
[2019-11-12] MEDS: sodium chloride 0.9% (100 ml) 100 ML 200 ML (17:08)
[2019-11-12 18:52] LABS: Hematocrit 26.1 % (37.0-47.0); Hemoglobin 8.7 g/dL (11.5-15.3)
[2019-11-12] MEDS: vancomycin 1,000 MG in sodium chloride 0.9% 250 ML 250 MG IV (20:19)
[2019-11-13] VITALS (38 sets, daily range): BP systolic 93–114; BP diastolic 53–68; PULSE 83–93; RESP 16–28; TEMP 36.8–37.3; O2SAT 94–100; BMI 24.7
[2019-11-13] MEDS: piperacillin-tazobactam 3.375 GM in sodium chloride 0.9% (plus) 50 ML IV ×3 (03:28→23:33)
[2019-11-13 03:59] LABS: Basophils # 0.1 10^3/uL (0.0-0.1); Basophils % 0.6 %; Eosinophils # 0.1 10^3/uL (0.0-0.8); Eosinophils % 0.5 %; Hematocrit 26.5 % (37.0-47.0); Hemoglobin 8.6 g/dL (11.5-15.3); Lymphocytes # 0.9 10^3/uL (0.8-4.8); Lymphocytes % 8.2 %; Mean Corpuscular HGB Conc 32.5 g/dL (30.0-36.0); Mean Corpuscular Volume 95.7 fL (81-99); Mean Platelet Volume 10.6 fL (7.4-10.4); Monocytes # 1.2 10^3/uL (0.2-0.9); Monocytes % 11.5 %; Neutrophils # 7.94 10^3/uL (1.8-7.7); Neutrophils % 76.7 %; Nucleated Red Blood Cells % 0.2 %; Platelet Count 77 10^3/cmm (130-400); Red Blood Count 2.77 10^6/uL (4.1-5.3); Red Cell Distribution Width 17.4 % (12.1-15.1); White Blood Count 10.4 10^3/uL (4.0-10.0)
[2019-11-13 04:42] LABS: Alanine Aminotransferase 70 U/L (0-33); Albumin Level 2.3 g/dL (3.5-5.2); Alkaline Phosphatase 132 IU/L (35-105); Anion Gap 14.4 (5-19); Aspartate Amino Transferase 284 U/L (0-32); Blood Urea Nitrogen 30 mg/dL (8-23); Calcium 6.2 mg/dL (8.5-10.5); Carbon Dioxide 18 mmol/L (22-29); Chloride 107 mmol/L (98-107); Globulin 2.8 g/dL (1.3-4.6); Glomerular Filtration Rate 71.5 mL/min (90-130); Glucose 87 mg/dL (65-115); Osmolality Calculated 278 mOsm/kg (285-295); Potassium 3.4 mmol/L (3.5-5.1); Sodium 136 mmol/L (136-145); Total Bilirubin 1.2 mg/dL (0.15-1.2); Total Protein 5.1 g/dL (6.6-8.7)
--- NOTE | 2019-11-13 06:47 | P.PN_ITS ---
Subjective Subjective: Interval history: Luiza has no new complaints this morning. She says her bowel movements still have some redness to them. She is not very anxious to have endoscopy, however. She wants to wait another day or 2 before making a final decision regarding that. Vitals/I&O/Wt Last Vital Signs Temp 98.4 F 11/13/19 05:52 Pulse 86 11/13/19 05:45 Resp 23 H 11/13/19 05:45 BP 101/55 11/13/19 05:45 Pulse Ox 98 11/13/19 05:45 11/12/19 11/12/19 11/13/19 14:59 22:59 06:59 Intake Total 281.765 / 3002.176 2596.5 / 1714.265 50 / 1714.265 Output Total 450 / 1500 750 / 1500 300 / 1500 Balance -168.235 / 214.265 632.5 / 214.265 -250 / 214.265 Weight last 48 hrs Weight 149 lb Weight 149 lb Weight 149 lb Physical Exam Narrative: EXAM NARRATIVE: No new changes. Urinary Catheter Management^: Mclain: Cath Placed During This Visit: yes Reason for Continuing Indwelling Catheter: Accurate Measurement of Urinary Ou tput in Critically Ill Patients Urinary Catheter Date of Insertion: 11/11/19 Urinary Catheter Time of Insertion: 20:56 Data : 11/13/19 03:10 11/13/19 03:10 Micro: Microbiology 11/11/19 18:59 Blood Culture - Preliminary Blood NEGATIVE TO DATE 11/11/19 18:55 Blood Culture - Preliminary Blood NEGATIVE TO DATE A&P Assessment and plan (1) Acute GI bleeding: The patient says her bowel movements still have a red color to them. She is not very anxious to have endoscopy. Status: Acute (2) Chronic anticoagulation: The patient normally takes Eliquis. I am hoping that with cessation of her Eliquis the bleeding will stop quickly. We did briefly discuss endoscopy as an option. Decisions regarding this will be made in the days to come based on the patient's wishes and clinical progress. Status: Chronic (3) Breast cancer metastasized to multiple sites: The patient appears to have widely metastatic breast cancer by CT last month. Status: Chronic Qualifiers: Laterality: left Qualified Code(s): C50.912 - Malignant neoplasm of unspecified site of left female breast Attestations Medical Necessity Statement*: See admitting service's notation. Coding Level of Care Code Acute Grinder Mill Operator for Kriss Fwd Diagnoses Acute GI bleeding K92.2 Chronic anticoagulation Z79.01 Breast cancer metastasized to multiple sites C50.912 Laterality: left
[2019-11-13] MEDS: ondansetron 2 mg/ML SDV 2 mL 4 MG IVP ×3 (07:14→21:28)
[2019-11-13] MEDS: sodium chlor 0.9% + KCl 20 mEq 20 MEQ/1,000 ML BAG 75 MEQ IV ×2 (07:51→21:08)
--- NOTE | 2019-11-13 08:33 | PM.PN ---
Subjective Subjective: Interval history: Patient is hemodynamically stable off pressors, hemoglobin is stable at 8.7 this morning. Her last bowel movement was last evening which still had some blood. Reassessed by surgery this morning, she would like to think about endoscopy some more. Leukocytosis is trending down. Medications: Reviewed: Yes Vitals/I&O/Wt Last Vital Signs Temp 98.9 F 11/13/19 08:00 Pulse 83 11/13/19 08:00 Resp 20 H 11/13/19 08:00 BP 109/62 11/13/19 08:00 Pulse Ox 97 11/13/19 08:00 11/12/19 11/13/19 11/13/19 22:59 06:59 14:59 Intake Total 1382.5 / 1664.265 50 / 4015.273 7958 / 1000 Output Total 750 / 1200 300 / 1500 Balance 632.5 / 464.265 -250 / 330.230 9748 / 1000 Weight last 48 hrs Weight 67.585 kg Weight 67.585 kg Weight 67.585 kg Physical Exam Narrative: EXAM NARRATIVE: GEN: Awake, alert and oriented, no acute distress CVS: S1S2 N RS: CTA B/L Abd: Soft, nt/nd , bs+ OUTSIDE SOLAR SALES CONSULTANT: no focal neuro deficits Ext: left chest wall with 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 Urinary Catheter Management^: Mclain: Cath Placed During This Visit: yes Reason for Continuing Indwelling Catheter: Accurate Measurement of Urinary Output in Critically Ill Patients Urinary Catheter Date of Insertion: 11/11/19 Urinary Catheter Time of Insertion: 20:56 Data : 11/13/19 03:10 11/13/19 03:10 Micro: Microbiology 11/11/19 18:59 Blood Culture - Preliminary Blood NEGATIVE TO DATE 11/11/19 18:55 Blood Culture - Preliminary Blood NEGATIVE TO DATE A&P Assessment and plan (1) Acute GI bleeding: Status: Acute (2) Acute blood loss anemia: Status: Acute (3) Chronic anticoagulation: Status: Chronic (4) Shock, unspecified: Status: Acute (5) Lactic acidosis: Could be from GI losses, sepsis, malignancy Status: Acute (6) Acute renal failure: Status: Acute Qualifiers: Acute renal failure type: with acute tubular necrosis Qualified Code(s): N17.0 - Acute kidney failure with tubular necrosis (7) Open wound of chest (wall), complicated: Status: Chronic Qualifiers: Encounter type: subsequent encounter Laterality: left Qualified Code(s): S21.102D - Unspecified open wound of left front wall of thorax without penetration into thoracic cavity, subsequent encounter (8) Breast cancer metastasized to multiple sites: Status: Chronic Qualifiers: Laterality: left Qualified Code(s): C50.912 - Malignant neoplasm of unspecified site of left female breast (9) Cancer associated pain: Status: Chronic (10) GERD (gastroesophageal reflux disease): Progressively worsening and according to the patient does not really respond to Protonix anymore Status: Chronic Qualifiers: Esophagitis presence: esophagitis presence not specified Qualified Code(s): K21.9 - Gastro-esophageal reflux disease without esophagitis Additional A&P Information # GI bleeding s/p transfusion of 3 units packed red blood cells since admission, hemoglobin now stable at 8.6 Last bowel movement was yesterday evening with still some blood in it. Dr. Henderson has been consulted by ER physician for evaluation of endoscopy, appreciate recommendations Recheck H&H this evening. IV PPI protonix to continue Diet has been advanced to clears today. Eliquis is currently stopped. Off pressor support , hemodynamically stable. # leukocytosis , recent chemo, last received Neupogen about a month ago, therefore unlikely that this represents leukocytosis. Patient could have been severely hemoconcentrated from being dehydrated from GI losses on admission. No obvious source of acute infection appearent, however continue empiric abx until sepsis w/up completed Empiric antibiotic coverage presently with vancomycin and Zosyn as started in the emergency room Wound care with betadine dressing. 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 #Metastatic breast cancer under oncology care. Dvt ppx: contraindicated due to Gi bleeding full code Attestations Medical Necessity Statement*: Continued monitoring for GI bleeding, hemoglobin check, vital signs monitoring, possible endoscopy Coding Level of Care Code Acute Cashier And Waiter/Waitress for g Fwd Diagnoses Acute GI bleeding K92.2 Acute blood loss anemia D62 Chronic anticoagulation Z79.01 Shock, unspecified R57.9 Lactic acidosis E87.2 Acute renal failure N17.0 Acute renal failure type: with acute tubular necrosis Open wound of chest (wall), complicated S21.102D Encounter type: subsequent encounter Laterality: left Breast cancer metastasized to multiple sites C50.912 Laterality: left Cancer associated pain G89.3 GERD (gastroesophageal reflux disease) K21.9 Esophagitis presence: esophagitis presence not specified
[2019-11-13] MEDS: pantoprazole 40 mg SDV IVP ×2 (09:29→21:29)
--- NOTE | 2019-11-13 13:38 | PC.NURSE ---
1300 transfered via bed to [facility] with belongings. No c/o's.
[2019-11-13 18:48] LABS: Hematocrit 25.6 % (37.0-47.0); Hemoglobin 8.4 g/dL (11.5-15.3)
[2019-11-13 19:34] LABS: Vancomycin Trough 5.6 ug/mL (10-15)
[2019-11-13] MEDS: vancomycin 1,000 MG in sodium chloride 0.9% 250 ML 250 MG IV (21:09)
[2019-11-14 03:31] VITALS: BP 95/66; PULSE 86; RESP 18; TEMP 36.9; O2SAT 98
[2019-11-14] MEDS: piperacillin-tazobactam 3.375 GM in sodium chloride 0.9% (plus) 50 ML IV ×3 (05:06→20:55)
[2019-11-14 05:20] LABS: Basophils % 0.3 %; Eosinophils # 0.1 10^3/uL (0.0-0.8); Eosinophils % 0.8 %; Hematocrit 25.8 % (37.0-47.0); Hemoglobin 8.2 g/dL (11.5-15.3); Lymphocytes % 11.6 %; Mean Corpuscular HGB Conc 31.8 g/dL (30.0-36.0); Mean Corpuscular Hemoglobin 30.7 pg (28.0-34.0); Mean Corpuscular Volume 96.6 fL (81-99); Mean Platelet Volume 9.7 fL (7.4-10.4); Monocytes # 1.2 10^3/uL (0.2-0.9); Monocytes % 13.7 %; Neutrophils # 6.25 10^3/uL (1.8-7.7); Neutrophils % 71.9 %; Nucleated Red Blood Cells % 0 %; Platelet Count 63 10^3/cmm (130-400); Red Blood Count 2.67 10^6/uL (4.1-5.3); Red Cell Distribution Width 17.7 % (12.1-15.1); White Blood Count 8.7 10^3/uL (4.0-10.0)
[2019-11-14 06:01] LABS: Alanine Aminotransferase 55 U/L (0-33); Alkaline Phosphatase 143 IU/L (35-105); Anion Gap 14.5 (5-19); Aspartate Amino Transferase 128 U/L (0-32); Blood Urea Nitrogen 14 mg/dL (8-23); Calcium 6.7 mg/dL (8.5-10.5); Carbon Dioxide 19 mmol/L (22-29); Chloride 107 mmol/L (98-107); Globulin 3.3 g/dL (1.3-4.6); Glomerular Filtration Rate 83.5 mL/min (90-130); Glucose 103 mg/dL (65-115); Osmolality Calculated 280 mOsm/kg (285-295); Potassium 3.5 mmol/L (3.5-5.1); Sodium 137 mmol/L (136-145); Total Bilirubin 1.1 mg/dL (0.15-1.2); Total Protein 5.3 g/dL (6.6-8.7)
--- NOTE | 2019-11-14 07:02 | PM.PN ---
Subjective Subjective: Interval history: The patient is now up on the regular med/surg floor. She says her bowel movements continue to show less evidence of blood. Vitals/I&O/Wt Last Vital Signs Temp 98.5 F 11/14/19 03:31 Pulse 86 11/14/19 03:31 Resp 18 11/14/19 03:31 BP 95/66 11/14/19 03:31 Pulse Ox 98 11/14/19 03:31 11/13/19 11/14/19 11/14/19 22:59 06:59 14:59 Intake Total 1476.25 / 2876.25 50 / 2876.25 Output Total 1050 / 2300 Balance 1476.25 / 576.25 -1000 / 576.25 Weight last 48 hrs Weight 156 lb 1.6 oz Weight 149 lb Physical Exam Narrative: EXAM NARRATIVE: No significant change. Urinary Catheter Management^: Mclain: Cath Placed During This Visit: yes Reason for Continuing Indwelling Catheter: Accurate Measurement of Urinary Output in Critically Ill Patients Urinary Catheter Date of Insertion: 11/11/19 Urinary Catheter Time of Insertion: 20:56 Data : 11/14/19 04:57 11/14/19 04:57 Micro: Microbiology 11/11/19 20:49 Urine Culture - Preliminary Urine,Clean Catch A&P Assessment and plan (1) Acute GI bleeding: The patient's hemoglobin is staying relatively stable, although it may still be slowly drifting. She is still not very anxious to have endoscopy; she seems comfortable continuing to wait and watch for now. Status: Acute (2) Chronic anticoagulation: The patient normally takes Eliquis. I am hoping that with cessation of her Eliquis the bleeding will stop. We did briefly discuss endoscopy as an option. Decisions regarding this will be made in the days to come based on the patient's wishes and clinical progress. Status: Chronic (3) Breast cancer metastasized to multiple sites: The patient appears to have widely metastatic breast cancer by CT last month. Status: Chronic Qualifiers: Laterality: left Qualified Code(s): C50.912 - Malignant neoplasm of unspecified site of left female breast Attestations Medical Necessity Statement*: See admitting service's notation. Coding Level of Care Code Acute Company Miner Blasting for Kriss Shelton Diagnoses Acute GI bleeding K92.2 Chronic anticoagulation Z79.01 Breast cancer metastasized to multiple sites C50.912 Laterality: left
[2019-11-14 07:53] VITALS: BP 95/62; PULSE 84; RESP 18; TEMP 37.1; O2SAT 93
[2019-11-14] MEDS: pantoprazole 40 mg SDV IVP ×2 (08:11→22:17)
[2019-11-14] MEDS: HYDROmorphone 1 mg/mL INJ 1 mL 2 MG IVP (08:39)
--- NOTE | 2019-11-14 08:49 | PC.NURSE ---
Dilaudid administration undone d/t pt blood pressure 95/62. 2mg dilaudid wasted and documented in Pyxis with Paola Bronson RN. Pt given Tylenol for pain.
[2019-11-14 10:59] VITALS: BP 101/64; PULSE 92; RESP 16; TEMP 37.3; O2SAT 92
[2019-11-14] MEDS: sodium chlor 0.9% + KCl 20 mEq 20 MEQ/1,000 ML BAG 75 MEQ IV (11:25)
[2019-11-14] MEDS: vancomycin 1,000 MG in sodium chloride 0.9% 250 ML 250 MG IV (15:01)
[2019-11-14 15:29] VITALS: BP 104/65; PULSE 90; RESP 22; TEMP 36.8; O2SAT 99
--- NOTE | 2019-11-14 16:24 | PC.NURSE ---
This nurse attempted to call pt's sister, Krista, to discuss possible d/c and pt transportation. No answer. Will attempt to call again later.
[2019-11-14 16:43] LABS: Hematocrit 24.4 % (37.0-47.0); Hemoglobin 7.9 g/dL (11.5-15.3)
[2019-11-14 20:00] VITALS: BP 93/62; PULSE 91; RESP 19; TEMP 37.1; O2SAT 97
[2019-11-14] MEDS: ondansetron 2 mg/ML SDV 2 mL 4 MG IVP (22:18)
--- NOTE | 2019-11-14 22:27 | P.PN_ITS ---
Subjective Subjective: Interval history: seen at 11am today. Hb stable, last BM last evening with some dark blood. No hematemesis Medications: Reviewed: Yes Vitals/I&O/Wt Last Vital Signs Temp 98.8 F 11/14/19 20:00 Pulse 91 11/14/19 20:00 Resp 19 H 11/14/19 20:00 BP 93/62 11/14/19 20:00 Pulse Ox 97 11/14/19 20:00 11/14/19 11/14/19 11/14/19 06:59 14:59 22:59 Intake Total 50 / 2876.25 1650 / 1650 530 / 2180 Output Total 1050 / 2300 1100 / 1100 Balance -1000 / 576.25 1650 / 1650 -570 / 1080 Weight last 48 hrs Weight 70.806 kg Weight 67.585 kg Physical Exam Narrative: EXAM NARRATIVE: GEN: Awake, alert and oriented, no acute distress CVS: S1S@ N RS: CTA B/L Abd: Soft, nt/nd , bs+ WELDER PIPE MAKING: no focal neuro deficits Urinary Catheter Management^: Mclain: Cath Placed During This Visit: yes Reason for Continuing Indwelling Catheter: Accurate Measurement of Urinary Output in Critically Ill Patients Urinary Catheter Date of Insertion: 11/11/19 Urinary Catheter Time of Insertion: 20:56 Data : 11/14/19 16:11/14/19 04:57 Micro: Microbiology 11/11/19 20:49 Urine Culture - Final Urine,Clean Catch A&P Assessment and plan (1) Acute GI bleeding: Status: Acute (2) Acute blood loss anemia: Status: Acute (3) Chronic anticoagulation: Status: Chronic (4) Shock, unspecified: Status: Acute (5) Lactic acidosis: Could be from GI losses, sepsis, malignancy Status: Acute (6) Acute renal failure: Status: Acute Qualifiers: Acute renal failure type: with acute tubular necrosis Qualified Code(s): N17.0 - Acute kidney failure with tubular necrosis (7) Open wound of chest (wall), complicated: Status: Chronic Qualifiers: Encounter type: subsequent encounter Laterality: left Qualified Code(s): S21.102D - Unspecified open wound of left front wall of thorax without penetration into thoracic cavity, subsequent encounter (8) Breast cancer metastasized to multiple sites: Status: Chronic Qualifiers: Laterality: left Qualified Code(s): C50.912 - Malignant neoplasm of unspecified site of left female breast (9) Cancer associated pain: Status: Chronic (10) GERD (gastroesophageal reflux disease): Progressively worsening and according to the patient does not really respond to Protonix anymore Status: Chronic Qualifiers: Esophagitis presence: esophagitis presence not specified Qualified Code(s): K21.9 - Gastro-esophageal reflux disease without esophagitis Additional A&P Information # GI bleeding s/p transfusion of 3 units packed red blood cells since admission, hemoglobin now stable at 8.4 in am, recheck this evening Last bowel movement was yesterday evening with still some blood in it. Patient is declining UGIE for assessment as she does not want invasive procedures IV PPI protonix to continue Advance diet to GI soft . Eliquis is currently stopped. # leukocytosis , now trending down, no obvious source of infection noted, may have been 2/2 hemoconcentration. d/c abx Wound care with betadine dressing. 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 #Metastatic breast cancer under oncology care. Dvt ppx: contraindicated due to Gi bleeding full code Attestations Medical Necessity Statement*: advancing diet, stopping abx, hb recheck Coding Level of Care Code Acute Email Marketing Manager for Chg Fwd Diagnoses Acute GI bleeding K92.2 Acute blood loss anemia D62 Chronic anticoagulation Z79.01 Shock, unspecified R57.9 Lactic acidosis E87.2 Acute renal failure N17.0 Acute renal failure type: with acute tubular necrosis Open wound of chest (wall), complicated S21.102D Encounter type: subsequent encounter Laterality: left Breast cancer metastasized to multiple sites C50.912 Laterality: left Cancer associated pain G89.3 GERD (gastroesophageal reflux disease) K21.9 Esophagitis presence: esophagitis presence not specified
[2019-11-15] VITALS (11 sets, daily range): BP systolic 85–103; BP diastolic 55–68; PULSE 77–91; RESP 14–20; TEMP 36.7–36.9; O2SAT 97–100
[2019-11-15] MEDS: sodium chlor 0.9% + KCl 20 mEq 20 MEQ/1,000 ML BAG 75 MEQ IV ×2 (00:35→13:43)
[2019-11-15 06:08] LABS: Basophils # 0.1 10^3/uL (0.0-0.1); Basophils % 0.6 %; Eosinophils # 0.1 10^3/uL (0.0-0.8); Eosinophils % 1.3 %; Hematocrit 24.2 % (37.0-47.0); Hemoglobin 7.8 g/dL (11.5-15.3); Lymphocytes # 1.1 10^3/uL (0.8-4.8); Lymphocytes % 14.3 %; Mean Corpuscular HGB Conc 32.2 g/dL (30.0-36.0); Mean Corpuscular Hemoglobin 31.1 pg (28.0-34.0); Mean Corpuscular Volume 96.4 fL (81-99); Mean Platelet Volume 10.7 fL (7.4-10.4); Monocytes # 0.9 10^3/uL (0.2-0.9); Monocytes % 10.8 %; Neutrophils # 5.59 10^3/uL (1.8-7.7); Neutrophils % 71.3 %; Nucleated Red Blood Cells % 0 %; Platelet Count 78 10^3/cmm (130-400); Red Blood Count 2.51 10^6/uL (4.1-5.3); Red Cell Distribution Width 17.2 % (12.1-15.1); White Blood Count 7.8 10^3/uL (4.0-10.0)
[2019-11-15 06:43] LABS: Alanine Aminotransferase 45 U/L (0-33); Albumin Level 2.1 g/dL (3.5-5.2); Alkaline Phosphatase 137 IU/L (35-105); Anion Gap 11.7 (5-19); Aspartate Amino Transferase 71 U/L (0-32); Blood Urea Nitrogen 9 mg/dL (8-23); Calcium 6.4 mg/dL (8.5-10.5); Carbon Dioxide 19 mmol/L (22-29); Chloride 109 mmol/L (98-107); Globulin 3.2 g/dL (1.3-4.6); Glomerular Filtration Rate 99.7 mL/min (90-130); Glucose 101 mg/dL (65-115); Osmolality Calculated 281 mOsm/kg (285-295); Potassium 3.7 mmol/L (3.5-5.1); Sodium 136 mmol/L (136-145); Total Bilirubin 0.9 mg/dL (0.15-1.2); Total Protein 5.3 g/dL (6.6-8.7)
[2019-11-15 08:11] LABS: Vancomycin Trough 11.1 ug/mL (10-15)
[2019-11-15] MEDS: iron complex forte Capsule 1 EACH PO ×2 (08:23→17:54)
[2019-11-15] MEDS: pantoprazole DR 40 mg Tablet PO ×2 (08:23→17:54)
[2019-11-15] MEDS: multivitamin therapeutic Tablet 1 TAB PO (08:23)
[2019-11-15] MEDS: sodium chloride 0.9% (100 ml) 100 ML (10:40)
[2019-11-15] MEDS: acetaminophen 325 mg Tablet 650 MG PO ×2 (13:46→21:30)
--- NOTE | 2019-11-15 16:59 | PM.PN ---
Subjective Subjective: Interval history: Hemoglobin today at 7.8. Had a cardiac bowel movement this morning. Feels weak and fatigued. Blood pressure between 90-99 systolic. Ordered for 1 unit blood transfusion today. Medications: Reviewed: Yes Vitals/I&O/Wt Last Vital Signs Temp 98.3 F 11/15/19 16:09 Pulse 82 11/15/19 16:09 Resp 18 11/15/19 16:09 BP 99/64 11/15/19 16:09 Pulse Ox 99 11/15/19 16:09 11/15/19 11/15/19 11/15/19 06:59 14:59 22:59 Intake Total 1707.5 / 3887.5 1485 / 1485 350 / 1835 Output Total 1700 / 3475 725 / 725 Balance 7.5 / 412.5 760 / 760 350 / 1110 Weight last 48 hrs Weight 69.995 kg Weight 70.806 kg Physical Exam Narrative: EXAM NARRATIVE: GEN: Awake, alert and oriented, no acute distress CVS: S1S2 N RS: CTA B/L Abd: Soft, nt/nd , bs+ PERIANESTHESIA RN: no focal neuro deficits Urinary Catheter Management^: Mclain: Cath Placed During This Visit: yes Reason for Continuing Indwelling Catheter: Accurate Measurement of Urinary Output in Critically Ill Patients Urinary Catheter Date of Insertion: 11/11/19 Urinary Catheter Time of Insertion: 20:56 Data : 11/15/19 05:02 11/15/19 05:02 Micro: Microbiology 11/11/19 20:49 Urine Culture - Final Urine,Clean Catch A&P Assessment and plan (1) Acute GI bleeding: Status: Acute (2) Acute blood loss anemia: Status: Acute (3) Chronic anticoagulation: Status: Chronic (4) Shock, unspecified: Status: Acute (5) Lactic acidosis: Could be from GI losses, sepsis, malignancy Status: Acute (6) Acute renal failure: Status: Acute Qualifiers: Acute renal failure type: with acute tubular necrosis Qualified Code(s): N17.0 - Acute kidney failure with tubular necrosis (7) Open wound of chest (wall), complicated: Status: Chronic Qualifiers: Encounter type: subsequent encounter Laterality: left Qualified Code(s): S21.102D - Unspecified open wound of left front wall of thorax without penetration into thoracic cavity, subsequent encounter (8) Breast cancer metastasized to multiple sites: Status: Chronic Qualifiers: Laterality: left Qualified Code(s): C50.912 - Malignant neoplasm of unspecified site of left female breast (9) Cancer associated pain: Status: Chronic (10) GERD (gastroesophageal reflux disease): Progressively worsening and according to the patient does not really respond to Protonix anymore Status: Chronic Qualifiers: Esophagitis presence: esophagitis presence not specified Qualified Code(s): K21.9 - Gastro-esophageal reflux disease without esophagitis Additional A&P Information # GI bleeding s/p transfusion of 3 units packed red blood cells since admission, hemoglobin 7.8 this morning, tarry bowel movement this morning, systolic blood pressure between 90-99 systolic. Ordered for an additional 1 unit of blood transfusion today. Patient is declining UGIE for assessment as she does not want invasive procedures PPI protonix to continue 40 BID Advance diet to GI soft . Eliquis is currently stopped. # leukocytosis , now trending down, no obvious source of infection noted, may have been 2/2 hemoconcentration. d/c abx Wound care with betadine dressing. 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 #Metastatic breast cancer under oncology care. Dvt ppx: contraindicated due to Gi bleeding full code Attestations Medical Necessity Statement*: Dropping hemoglobin, soft blood pressure, ongoing GI bleed Coding Level of Care Code Acute Senior Project Manager Engineering for Chg Fwd Diagnoses Acute GI bleeding K92.2 Acute blood loss anemia D62 Chronic anticoagulation Z79.01 Shock, unspecified R57.9 Lactic acidosis E87.2 Acute renal failure N17.0 Acute renal failure type: with acute tubular necrosis Open wound of chest (wall), complicated S21.102D Encounter type: subsequent encounter Laterality: left Breast cancer metastasized to multiple sites C50.912 Laterality: left Cancer associated pain G89.3 GERD (gastroesophageal reflux disease) K21.9 Esophagitis presence: esophagitis presence not specified
[2019-11-15 18:34] LABS: Hematocrit 30.1 % (37.0-47.0); Hemoglobin 9.7 g/dL (11.5-15.3)
[2019-11-15] MEDS: ondansetron 2 mg/ML SDV 2 mL 4 MG IVP (21:36)
[2019-11-16] VITALS (7 sets, daily range): BP systolic 99–117; BP diastolic 64–81; PULSE 77–85; RESP 18–20; TEMP 36.4–36.9; O2SAT 98–99
[2019-11-16] MEDS: sodium chlor 0.9% + KCl 20 mEq 20 MEQ/1,000 ML BAG 75 MEQ IV (02:55)
[2019-11-16 06:06] LABS: Basophils % 0.6 %; Eosinophils # 0.1 10^3/uL (0.0-0.8); Hematocrit 30.6 % (37.0-47.0); Lymphocytes # 1.1 10^3/uL (0.8-4.8); Mean Corpuscular HGB Conc 32.7 g/dL (30.0-36.0); Mean Corpuscular Hemoglobin 30.9 pg (28.0-34.0); Mean Corpuscular Volume 94.4 fL (81-99); Mean Platelet Volume 10.4 fL (7.4-10.4); Monocytes # 0.8 10^3/uL (0.2-0.9); Monocytes % 11.7 %; Neutrophils # 4.44 10^3/uL (1.8-7.7); Neutrophils % 67.7 %; Nucleated Red Blood Cells % 0 %; Platelet Count 90 10^3/cmm (130-400); Red Blood Count 3.24 10^6/uL (4.1-5.3); White Blood Count 6.6 10^3/uL (4.0-10.0)
[2019-11-16 06:28] LABS: Alanine Aminotransferase 40 U/L (0-33); Albumin Level 2.1 g/dL (3.5-5.2); Alkaline Phosphatase 223 IU/L (35-105); Anion Gap 12.4 (5-19); Aspartate Amino Transferase 65 U/L (0-32); Blood Urea Nitrogen 7 mg/dL (8-23); Calcium 6.9 mg/dL (8.5-10.5); Carbon Dioxide 18 mmol/L (22-29); Chloride 111 mmol/L (98-107); Globulin 3.3 g/dL (1.3-4.6); Glomerular Filtration Rate 99.7 mL/min (90-130); Glucose 90 mg/dL (65-115); Osmolality Calculated 282 mOsm/kg (285-295); Potassium 4.4 mmol/L (3.5-5.1); Sodium 137 mmol/L (136-145); Total Bilirubin 0.7 mg/dL (0.15-1.2); Total Protein 5.4 g/dL (6.6-8.7)
[2019-11-16] MEDS: pantoprazole DR 40 mg Tablet PO (08:14)
[2019-11-16] MEDS: multivitamin therapeutic Tablet 1 TAB PO (08:15)
[2019-11-16] MEDS: iron complex forte Capsule 1 EACH PO (08:17)
--- NOTE | 2019-11-16 12:16 | PM.DCS ---
Discharge Providers Date of Admission: 11/11/19 22:40 Date of Discharge: November 16, 2019 Attending Provider at Admission: Kassidy Regalado MD Attending Provider at Discharge: Mikki Sanchez MD Primary Care Provider: REY Patten Diagnoses at Discharge Discharge Diagnosis (1) Acute GI bleeding: Status: Acute (2) Acute blood loss anemia: Status: Acute (3) Chronic anticoagulation: Status: Chronic (4) Shock, unspecified: Status: Acute (5) Lactic acidosis: Status: Acute (6) Acute renal failure: Status: Acute Qualifiers: Acute renal failure type: with acute tubular necrosis Qualified Code(s): N17.0 - Acute kidney failure with tubular necrosis (7) Open wound of chest (wall), complicated: Status: Chronic Problem details: related to breast cancer Qualifiers: Encounter type: subsequent encounter Laterality: left Qualified Code(s): S21.102D - Unspecified open wound of left front wall of thorax without penetration into thoracic cavity, subsequent encounter (8) Breast cancer metastasized to multiple sites: Status: Chronic Qualifiers: Laterality: left Qualified Code(s): C50.912 - Malignant neoplasm of unspecified site of left female breast (9) Cancer associated pain: Status: Chronic Problem details: on narcotics as needed (10) GERD (gastroesophageal reflux disease): Status: Chronic Qualifiers: Esophagitis presence: esophagitis presence not specified Qualified Code(s): K21.9 - Gastro-esophageal reflux disease without esophagitis Reason for Visit Reason for Visit: AMS, N/V/D Hospital Course Discharge Summary: 69 year old cathy with h/o metatstatic breast cancer s/p multiple lines of treatment presented for admission with c/o easy fatiguability, abdominal pain and kala. Her BMs were noted to be black and tarry. Hb upon admission was 6.5 for which she has received todatl 4 units of blood tranfusion during the course of admission. She has been on chronic Eliquis treatment due to h/o recurrent superficial thrombosis. The latter was discontinued due to ongoing GI bleeding. She refused endoscopic assessment for source of bleeding. She also deferred discussion of any other interventions such as IVC filters until her follow up as outpatient with Dr. Sainz. Her BM on day of discharge have started to clear up. She had semi soft brown BM today. Given high risk of recurrent GI bleed, Elquis has been placed on hold after a risk/benefit discussion. Per review of past notes, patient has had chemoradiation in the past and in spite of multiple lines of chemo has had progressive disease with overall guarded prognosis. She remains on supportive/symptomatic management. 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 She is being discharged today in chronically ill but stable condition. Physical Exam Narrative: EXAM NARRATIVE: GEN: Awake, alert and oriented, no acute distress CVS: S1S2 N RS: CTA B/L Abd: Soft, nt/nd , bs+ SUPERVISOR FABRICATION: no focal neuro deficits Urinary Catheter Management^: Mcl[place]: Cath Placed During This Visit: yes Reason for Continuing Indwelling Catheter: Accurate Measurement of Urinary Output in Critically Ill Patients Urinary Catheter Date of Insertion: 11/11/19 Urinary Catheter Time of Insertion: 20:56 Discharge Data Data Completed and Pending: Completed Studies During Hospitalization Category Date Time Status CT head wo con* 7 0450 Urgent Cat Scan 11/11/19 18:46 Completed XR chest 1V allyn ble [id number] Urgent Exams 11/11/19 18:46 Completed Pending at discharge Category Date Time Status Blood Culture Sta t Lab 11/11/19 18:59 Results Labs from last 24 hours 11/16/19 11/16/19 11/15/19 05:10 05:10 18:25 WBC 6.6 RBC 3.24 L Hgb 10.0 L 9.7 L Hct 30.6 L 30.1 L MCV 94.4 MCH 30.9 MCHC 32.7 RDW 17.0 H Plt Count 90 L MPV 10.4 Neut % (Auto) 67.7 Lymph % (Auto) 16.0 [place] % (Auto) 11.7 Eos % (Auto) 2.0 Baso % (Auto) 0.6 Neut # (Auto) 4.44 Lymph # (Auto) 1.1 [place] # (Auto) 0.8 Eos # (Auto) 0.1 Baso # (Auto) 0.0 Nucleated RBC % (a uto) 0 Nucleated RBCs # 0.0 Sodium 137 Potassium 4.4 Chloride 111 H Carbon Dioxide 18 L Anion Gap 12.4 BUN 7 L Creatinine 0.6 GFR Calculation 99.7 Glucose 90 Calculated Osmolal ity 282 L Calcium 6.9 L Total Bilirubin 0.7 AST 65 H ALT 40 H Alkaline Phosphata se 223 H Total Protein 5.4 L Albumin 2.1 L Globulin 3.3 Blood Type Rho(D) Type Antibody Screen Crossmatch 11/15/19 11/11/19 10:35 18:55 WBC RBC Hgb Hct MCV MCH MCHC RDW Plt Count MPV Neut % (Auto) Lymph % (Auto) [place] % (Auto) Eos % (Auto) Baso % (Auto) Neut # (Auto) Lymph # (Auto) [place] # (Auto) Eos # (Auto) Baso # (Auto) Nucleated RBC % (a uto) Nucleated RBCs # Sodium Potassium Chloride Carbon Dioxide Anion Gap BUN Creatinine GFR Calculation Glucose Calculated Osmolal ity Calcium Total Bilirubin AST ALT Alkaline Phosphata se Total Protein Albumin Globulin Blood Type O Positive Rho(D) Type Positive Antibody Screen Negative Crossmatch See Detail See Detail Vitals: Last Vital Signs Temp 98.1 F 11/16/19 11:37 Pulse 81 11/16/19 11:37 Resp 18 11/16/19 11:37 BP 108/73 11/16/19 11:37 Pulse Ox 99 11/16/19 11:37 Discharge Plan Discharge Patient Disposition: Home Condition: Stable Prescriptions: New Ferrex 150 Forte 150-25-1 mg-mcg-mg Capsule 1 ea PO BIDWM Qty: 0 RF: 0 pantoprazole 40 mg Tablet,Delayed Release (Dr/Ec) 40 mg PO BID 30 Days Qty: 60 RF: 0 Thera 400 mcg Tablet 1 tab PO DAILY Qty: 0 RF: 0 Continued morphine 15 mg tablet 15 mg PO QID PRN (Reason: pain) RF: 0 gabapentin 600 mg tablet 600 mg PO TID RF: 0 cyanocobalamin (vitamin B-12) [Vitamin B-12] 1,000 mcg Tablet 1,000 mcg PO DAILY RF: 0 potassium chloride 10 mEq tablet extended release 10 meq PO BID RF: 0 magnesium oxide 400 mg (241.3 mg magnesium) tablet 400 mg PO BID RF: 0 lorazepam 0.5 mg tablet 0.5 mg PO BEDTIME RF: 0 pantoprazole 40 mg tablet,delayed release (DR/EC) 40 mg PO DAILY RF: 0 ergocalciferol (vitamin D2) [Vitamin D2] 1,250 mcg (50,000 unit) capsule 50,000 unit PO Q30D RF: 0 calcium carbonate-vitamin D3 [Oyster Shell Calcium-Vit D3] 500 mg(1,250mg) -200 unit tablet 1 tab PO BID RF: 0 sennosides-docusate sodium 8.6-50 mg Tablet 1 tab PO DAILY Qty: 30 RF: 0 nystatin [Nystop] 100,000 unit/gram Powder 1 applic topical BID Qty: 100 RF: 0 Discontinued Eliquis 5 mg tablet 5 mg PO BID RF: 0 Discharge Orders: Discharge Order (Routine); Ordered 11/16/19 Ordered By: Mikki Sanchez Referrals: Holly Hernandez FNP [Primary Care Provider] - (Please call patient at home with a hospital follow up appointment. Faxed information to clinic) Ming Sainz MD [Hospitalist] - 7-10 days (Please call patient at home with a hospital follow up appointment in 7-[address] Sainz. Faxed information to clinic) Discharge Diet: Usual diet Discharge Activity: Resume usual activity Patient Instructions: Pantoprazole (By mouth), GI Bleeding, Renal Failure Diet (GEN) Discharge Date/Time: 11/16/19 20:00 Discharge Attestations Time Spent in Discharge Care*: greater than 30 min Quality Metrics Clinical Quality Measures During this hospital stay, did patient experience: None Coding Level of Care Code Acute Furniture Finisher for g Fwd Diagnoses Acute GI bleeding K92.2 Acute blood loss anemia D62 Chronic anticoagulation Z79.01 Shock, unspecified R57.9 Lactic acidosis E87.2 Acute renal failure N17.0 Acute renal failure type: with acute tubular necrosis Open wound of chest (wall), complicated S21.102D Encounter type: subsequent encounter Laterality: left Breast cancer metastasized to multiple sites C50.912 Laterality: left Cancer associated pain G89.3 GERD (gastroesophageal reflux disease) K21.9 Esophagitis presence: esophagitis presence not specified
--- NOTE | 2019-11-17 00:27 | PC.NURSE ---
Patient was discharged 11/16/2019 at 2000. All IV's removed with patient tolerating well. Patient was wheeled out via wheelchair with MACHINE PRINTER to family vehicle with family assisting patient to vehicle. Patient belongings were with patient at time of discharge. All discharge instructions along with medication education was given to patient with patient agreeing to understanding.
[2019-11-17 00:38] VITALS: BP 111/72; PULSE 85; RESP 18; TEMP 36.9; O2SAT 99
== END 2019-11-16 20:00 | disposition home or self-care (01) | DRG 377 ==
LOC: ER 21:24 → ICU 22:50 → MEDSURG 11-13 13:10
PROVIDERS: Emergency Medicine; Admitting Provider Hospitalist; PCP Nurse Practitioner Family; Visit Provider Student in an Organized Health Care Education/Training Program
DX: K92.2 Gastrointestinal hemorrhage, unspecified (principal); N17.0 Acute kidney failure with tubular necrosis; R57.1 Hypovolemic shock; C79.51 Secondary malignant neoplasm of bone; C78.7 Secondary malignant neoplasm of liver and intrahepatic bile duct; D62 Acute posthemorrhagic anemia; E87.2 Acidosis; C50.912 Malignant neoplasm of unspecified site of left female breast; Z79.899 Other long term (current) drug therapy; I95.9 Hypotension, unspecified; K21.9 Gastro-esophageal reflux disease without esophagitis; Z85.3 Personal history of malignant neoplasm of breast; I10 Essential (primary) hypertension; M19.90 Unspecified osteoarthritis, unspecified site; M81.0 Age-related osteoporosis without current pathological fracture; Z86.718 Personal history of other venous thrombosis and embolism; Z90.13 Acquired absence of bilateral breasts and nipples; Z87.891 Personal history of nicotine dependence; S21.102D Unspecified open wound of left front wall of thorax without penetration into thoracic cavity, subsequent encounter; G89.3 Neoplasm related pain (acute) (chronic); Z79.891 Long term (current) use of opiate analgesic; L59.8 Other specified disorders of the skin and subcutaneous tissue related to radiation; Y84.2 Radiological procedure and radiotherapy as the cause of abnormal reaction of the patient, or of later complication, without mention of misadventure at the time of the procedure
CPT/HCPCS: 12345; 36415; 36430; 36591; 36592; 51702; 70450; 71045; 80053; 80202; 81003; 83605; 83735; 84100; 85014; 85018; 85025; 85610; 86850; 86900; 86920; 87040; 87086; 93005; 96375; 99283; C9113; J1170; J2405; J2543; J3010; J3370; J7030; J7050; P9016; P9040

== ENCOUNTER 2019-11-26 10:17 | Outpatient (CLI) | payer MEDICAID, SELFPAY ==
[2019-11-26 10:58] LABS: Basophils # 0.1 10^3/uL (0.0-0.1); Basophils % 1.4 %; Eosinophils # 0.1 10^3/uL (0.0-0.8); Eosinophils % 1.1 %; Hematocrit 37.2 % (37.0-47.0); Hemoglobin 11.6 g/dL (11.5-15.3); Lymphocytes # 2.3 10^3/uL (0.8-4.8); Lymphocytes % 26.6 %; Mean Corpuscular HGB Conc 31.2 g/dL (30.0-36.0); Mean Corpuscular Hemoglobin 30.1 pg (28.0-34.0); Mean Corpuscular Volume 96.4 fL (81-99); Mean Platelet Volume 10.4 fL (7.4-10.4); Monocytes # 0.9 10^3/uL (0.2-0.9); Monocytes % 10.1 %; Neutrophils # 5.01 10^3/uL (1.8-7.7); Neutrophils % 58.8 %; Nucleated Red Blood Cells % 0 %; Platelet Count 235 10^3/cmm (130-400); Red Blood Count 3.86 10^6/uL (4.1-5.3); Red Cell Distribution Width 15.9 % (12.1-15.1); White Blood Count 8.5 10^3/uL (4.0-10.0)
[2019-11-26 11:07] LABS: Alanine Aminotransferase 62 U/L (0-33); Alkaline Phosphatase 254 IU/L (35-105); Anion Gap 18.9 (5-19); Aspartate Amino Transferase 115 U/L (0-32); Blood Urea Nitrogen 16 mg/dL (8-23); Calcium 9.2 mg/dL (8.5-10.5); Carbon Dioxide 20 mmol/L (22-29); Chloride 100 mmol/L (98-107); Glomerular Filtration Rate 49.5 mL/min (90-130); Glucose 153 mg/dL (65-115); Osmolality Calculated 284 mOsm/kg (285-295); Potassium 3.9 mmol/L (3.5-5.1); Sodium 135 mmol/L (136-145); Total Bilirubin 1.1 mg/dL (0.15-1.2)
--- NOTE | 2019-11-27 14:40 | ONC FU_ITS ---
Dr. Sainz Patient Follow-Up Note Patient: Luiza Salmon Unit #: [id number]: 1950 Dicatated By: Ming Sainz M.D.Date of Visit:Nov 26, 2019 Onc Med Follow-up/Prog Note Chief Complaint: Breast cancer. History of Present Illness: This is a 69 year-old woman with grade 2 infiltrating ductal carcinoma of the right breast, ER positive/NC negataive and HER-23/hannah negative, stage IV (T2, pN2a, M1), metastatic to bone. 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 It was locally advanced at initial presentation in July 2008. Biopsy showed multifocal grade 3/3 invasive ductal carcinoma with extensive lymphatic invasion within fat and skin. The tumor was ER positive at 100% and NC negative at less than 5%. It was positive for overexpression of HER-2/hannah (3+ by IHC). She was given neoadjuvant chemotherapy with 6 cycles of TCH, which she completed in November 2008. She underwent left modified radical mastectomy in December 2008. Pathology showed residual infiltrating ductal carcinoma within the breast as well as involvement in 8 of 14 axillary lymph nodes. She was given prophylactic chest wall radiation, which she completed in March 2009 to a total dose of 60.4 Gy. She also received a full year of Herceptin, which she completed in July 2009. She started adjuvant hormonal therapy with Femara as of April 2009. It was stopped after completing 5 years of treatment. She did experience some neuropathy from her chemotherapy, and she had some chronic pain issues both during and following her treatment. In September 2016 she presented with a new lump in her right breast. Diagnostic mammogram/ultrasound 10/26/2016 was BI-RADS category high, highly suggestive of malignancy. The mammogram showed an irregular lobular high density mass in the upper outer quadrant measuring 2.3 x 3.1 cm. The ultrasound showed mixed echogenicity mass with irregular margins measuring 1.4 x 1.4 x 3 cm with an adjacent oval nodule or lymph node measuring 3.4 x 6 mm. Ultrasound guided biopsy on 11/09/2016 showed grade 1 infiltrating ductal carcinoma with prominent mucinous carcinoma component. The breast prognostic profile showed ER positive at 99%, strong intensity, with NC negative at less than 1%. The tumor was negative for overexpression of HER-2/hannah, 2+ by IHC and amplification ratio by FISH of 1.1 with 2.1 HER-2 copies/cell. The Ki-67 was unfavorable at 28%. On 11/25/2016 she underwent attempted axillary sentinel lymph node biopsy/right low axillary dissection and right simple mastectomy. There were palpable lymph nodes in the axilla which were noted to be firm and somewhat matted together. Pathology showed grade 2 invasive ductal carcinoma measuring 4.0 cm in greatest dimension. A smaller nodule tumor in the same quadrant measured 1.5 cm. There was involvement in 4 of 4 axillary lymph nodes with the largest metastatic deposit measuring 2.0 cm. There was extranodal extension identified. Her pathologic staging was pT2, pN2a. She had further evaluation with staging PET/CT on 12/25/2016. It showed multiple sites of FDG avid skeletal metastases which included but were not limited to C2, C7, T2, T8, T11, T12, L5, and S4 vertebral bodies as well as multiple sites in the pelvis. In December 2016 she began treatment with fulvestrant in combination with palbociclib, and she also started monthly denosumab injections for the metastatic bone involvement. Thus far she has tolerated the treatment very well. Restaging PET/CT on 04/23/2017 showed overall mixed response of multifocal osseous metastatic disease, with improvement in some areas and progression in others. Also noted was interval development of multifocal hepatic metastatic disease which included lesions with SUVs up to 7.5, largely in the left hepatic lobe. Also noted was new hypermetabolic subcutaneous soft tissue in the inferior left chest wall, strongly suspicious for metastatic disease. On 05/09/2017 she started a trial of palliative chemotherapy with Halaven on a standard day 1/day 8 schedule every 21 days. Her treatment was complicated by neutropenia, requiring growth factor support. She also did receive a dose reduction beginning with cycle 5. A restaging PET/CT on 11/19/2017 showed widespread osseous metastatic lesions but with mild improvement compared to the previous study from March 2017. Multifocal hepatic lesions also were mildly improved. Uptake in the left chest wall was noted to be stable. There was no mention of uptake in the right chest wall. She continued treatment with Halaven. As of 03/08/2018 she began her 14th cylce. Her day 8 treatment was delayed 1 week due to neutropenia. Her restaging PET/CT on 04/01/2018 showed progression of her left chest wall disease and progression of metastatic disease in the liver. Also noted was irregular uptake throughout the bone marrow consistent with widespread osseous metastatic disease, much more extensive compared to the prior study in October 2017. With those findings, she was scheduled for biopsy of a left iliac bone lesion to try and verify the ER/NC and HER-2/hannah status of her metastatic disease. That biopsy unfortunately was nondiagnostic. However, as her left breast cancer was HER-2/hannah positive, I did recommend that she proceed with a trial of TCH chemotherapy. She returned on 05/15/2018 for cycle 1 of carboplatin/docetaxel chemotherapy in combination with Herceptin. She had no acute toxicity during the administration of the chemotherapy. However, at completion of her treatment, she had become very lethargic, and she was sent to the emergency room for evaluation. A noncontrast head CT showed no acute findings. CT of the abdomen/pelvis showed prominent small bowel loops as well as distended stomach. An NG tube placed in the emergency room had an output of 300 mL of brownish colored gastric contents. She was admitted for overnight observation, and by the following day she was feeling better and she was able to be discharged home. It was thought that she most likely had opiate-induced ileus. She was then able to proceed with cycle 2 of carboplatin/docetaxel/Herceptin on 06/05/2018. It was administered with a 20% reduction in the chemotherapy dosages. The Herceptin was adjusted to the 3-week dosing schedule. She tolerated it well, and she was then able to continue her treatment at 3-week intervals. As of 08/28/2018 she completed her 6th cycle. In the presence of BRCA2 mutation and a good response to met[place] based chemotherapy, she was then transitioned to maintenance therapy with olaparib 300 mg twice daily beginning in October 2018. She also continued the monthly denosumab injections for the metastatic bone involvement. Her other medical illnesses have been limited to hypertension and osteoporosis. She has had some chronic swelling in the lower extremities following chemotherapy. She is a nonsmoker. Surgeries have been limited to left modified radical mastectomy in December 2008 and right mastectomy with low axillary dissection in October 2016. She also had undergone placement of Port-A-Cath venous access device for chemotherapy in 2008. INTERIM HISTORY: I had seen her for followup on 09/10/2019. Over a period of about 2 months she had developed erythema in the left chest wall, which had worsened despite antibiotic therapy. At that point she had 2 open sores in the chest wall, and she also had shown some decline in her performance status. Her restaging PET/CT on 09/29/2019 showed progression of a left chest wall implant and development of a new pleural lesion at the anterior right upper lobe. A 3.0 cm metastatic lesion in the right hepatic dome had SUV 15.0. There was new right-sided retrocaval adenopathy. Still noted was multiple discrete lesions throughout the appendicular and axial skeleton consistent with possible metastatic lesions. With evidence of an obvious disease progression, I had recommended that she restart chemotherapy with carboplatin/Abraxane, as she had previously responded very well to metl[place] based therapy. She began cycle 1 on 10/10/2019. On 10/16/2019 she was admitted to the hospital with severe pancytopenia. She still had an open draining wound in the chest wall. She required PRBC transfusion, but she remained afebrile on broad-spectrum antibiotic coverage, and she otherwise recovered uneventfully. She was discharged home on 10/22/2019. Due to the severity of that illness and declining performance status, her further chemotherapy was put on hold. On 11/11/2019 she was admitted to the hospital with acute GI bleeding and anemia. She was still on anticoagulation with apixaban, and that was obviously discontinued. She received a total of 4 units of PRBC. She was otherwise managed conservatively. She stabilized and was able to be discharged home on 11/16/2019. She is seen for a follow-up visit. She remains very weak following the recent hospitalization. Her activity is very limited. She does get up to the bathroom but she is otherwise better wheelchair-confined. She still has an open wound in the left chest wall, which are family is packing on a daily basis. She is pretty much totally dependent for ADLs. ECOG score is 3. Appetite is poor. She does not have fever. She does have periods of feeling hot and cold. She says her breathing is pretty good. She does not have cough. She has some discomfort in the chest wall on both sides. She otherwise is not having chest pain. She is still having nausea and she reports having acid reflux. She also has constipation. Bladder function has been okay. She does not complain of headache. She has had some episodes of dizziness. She has numbness/tingling in her hands and toes. Medications: Calcium 1 Tablet (of 500 mg) Oral b.i.d., Eliquis 1 Tablet (of 5 mg) Oral b.i.d., Ergocalciferol 1 (49380 Units) Capsule Oral q 30 days, Ferrous Sulfate 1 Tablet (of 325 (65 fe) mg) Oral daily, Gabapentin 1 Tablet (of 600 mg) Capsule Oral t.i.d., Klor-Con M10 1 (10 meq) Tablet, controlled release Oral b.i.d., Magnesium 1 Tablet (of 400 mg) Oral b.i.d., Morphine Sulfate 1 Tablet (of 30 mg) Oral four times a day PRN, Morphine Sulfate ER 1 Tablet (of 100 mg) Capsule SR 24 HR Oral q 12 hours PRN, Olaparib 2 Tablet (of 150 mg) Oral b.i.d., Protonix 1 (40 mg) Tablet, enteric coated Oral daily, Senokot S 1 Tablet (of 8.6-50 mg) Oral b.i.d. PRN, Vitamin B12 1 Tablet Oral daily Allergies: No Known Allergies. Review of Systems: Constitutional - She has no energy and her performance status has continued to decline. She requires full assistance at home with ADL's. She is only out of bed to get up to the bathroom. Her appetite is very poor. No fevers. She is having episodes of hot flashes then cold sweats. ECOG score is 3, ENMT - She has sinus congestion/drainage. She has sores in the corners of her mouth. No sore throat or difficulty swallowing, Hematologic/Lymphatic - No abnormal bruising or bleeding, Respiratory - No shortness of breath. No cough. No pleuritic pain or hemoptysis, Cardiovascular - No angina pain. No palpitations, Gastrointestinal - She has nausea. No vomiting. She is having heartburn despite taking Pantoprazole 40 mg twice daily. No diarrhea. She has constipation. No blood in the stool or black stools, Genitourinary (F) - No dysuria or hematuria. No urinary frequency. No urgency or incontinence, Musculoskeletal - She has pain to her left and right rib/flank area. Worse to the left side where her wound is, Integumentary - She has an open wound on the left chest wall that is being packed daily, Neurologic - No headache. She has occasional dizziness. She has numbness and tingling in her fingers and toes. No other focal neurologic symptoms, Psychiatric - No anxiety or depression. She is not sleeping well. Vital Signs: Performed on Nov 26, 2019 11:23 Height - 68.00 in Temperature - 97.1 F (LOW) Pulse - 121 /min (HIGH) Respiration - 16 /min BP - 99/62 mm(hg) O2 Sat - 99 % Pain - 0 Physical Examination: Constitutional - She appears very weak generally, Eyes - Sclerae nonicteric. Conjunctivae clear, ENMT - No lesions noted in the oral cavity. There is mild angular cheilitis, Hematologic/Lymphatic - No cervical or clavicular adenopathy, Respiratory - Lungs are clear, Cardiovascular - Heart rhythm is regular with a mild tachyardia. There is a II/ systolic murmur. There is no gallop or rub noted, Breasts - The right chest wall shows no lesions. There is a persistent open wound in the left chest wall. There is no axillary adenopathy, Abdomen - Soft. Liver and spleen are not enlarged. There is no abdominal mass or ascites noted and there is no inguinal adenopathy, Extremities - Slight edema. Lower legs and feet are cool to touch, Neurologic - No focal neurologic deficits noted. Lab/Imaging: Test performed on Nov 26, 2019 10:26 Sodium 135 mmol/L Potassium 3.9 mmol/L Chloride 100 mmol/L CO2 20 mmol/L Anion Gap 18.9 BUN 16 mg/dL Creatinine 1.1 mg/dL Cr Clearance (Est) 56.0100 mL/min eGFR 49.5 mL/min Glucose 153 mg/dL Osmolality - Calculated 284 mOsm/kg Calcium 9.2 mg/dL Protein, Total 7.0 g/dL Albumin 3.0 g/dL Globulin 4.0 g/dL Bilirubin, Total 1.1 mg/dL ALT (SGPT) 62 U/L AST (SGOT) 115 U/L Alkaline Phosphatase 254 IU/L WBC 8.5 10 3/uL RBC 3.86 10 6/uL HGB 11.6 g/dL HCT 37.2 % MCV 96.4 fL MCH 30.1 pg MCHC 31.2 g/dL RDW 15.9 % Platelet Count 235 10 3/cmm MPV 10.4 fL Neutrophils 5.01 10 3/uL Lymphocytes 2.3 10 3/uL Monocytes 0.9 10 3/uL Eosinophils 0.1 10 3/uL Basophils 0.1 10 3/uL Neutrophil % 58.8 % Lymphocyte % 26.6 % Monocyte % 10.1 % Eosinophil % 1.1 % Basophils % 1.4 % NRBC % 0 % Impression: 1. 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 She also completed 5 years of adjuvant hormonal therapy with Femara. 2. In 2016 she was found to have grade 2 invasive ductal carcinoma of the right breast, ER positive/NC negative and HER-2/hannah negative. 3. She underwent ultrasound-guided needle biopsy on 11/09/2016 followed by right simple mastectomy/low axillary dissection on 11/25/2016. 4. She was found to have stage IV disease (T2, pN2a, M1), with PET/CT showing multiple sites of bone involvement in the spine and pelvis. 5. On 01/05/2017 she began treatment with fulvestrant in combination with palbociclib. She also started monthly denosumab injections for the metastatic bone involvement. She completed 4 cycles of palbociclib. Her restaging PET/CT on 04/23/2017 showed mixed response with regard to the metastatic bone involvement, but unfortunately there was additional progression with new hepatic metastatic disease and new metastatic involvement in the left chest wall. 6. On 05/09/2017 she began a trial of palliative chemotherapy with Halaven on a standard day 1/day 8 schedule every 21 days. Restaging PET/CT on 11/19/2017 did show some improvement in the osseous and hepatic metastatic disease with no obvious disease progression. She then continued treatment with Halaven, which she tolerated well with growth factor support. 7. As of 03/08/2018 she began her 14th cycle of treatment. Her restaging PET/CT on 04/01/2018 showed evidence of significant disease progression including the left chest wall and liver as well as extensive metastatic bone involvement. 8. She began treatment with TCH chemotherapy on 05/15/2018. She had tolerated it well following a 20% reduction in the chemotherapy dosages. As of 08/28/2018 she completed her 6th cycle. By clinical evaluation she had a good response. 9. During that time, she was evaluated with a next generation sequencing study, which did confirm the presence of a BRCA2 mutation, presumed to be somatic. In the setting of a good response to [place] based chemotherapy, she was then transitioned to maintenance therapy with olaparib 300 mg twice daily beginning in October 2018. During follow-up she had gradual improvement in her performance status after stopping the chemotherapy. She was able to continue the olaparib at the same dosage, and she had been showing a steady decline in her CA 27.29 level. She was moderately anemic, which I had assumed to be treatment related. However, over a period of 2 months she had developed changes in the left chest wall which had continued to worsen despite antibiotic therapy. She also had shown some decline in performance status. She was then confirmed by PET/CT to have disease progression. With that finding, I had recommended that she restart chemotherapy with carboplatin/Abraxane. She received cycle 1 on 10/10/2019. At day 7 she was admitted to the hospital with severe pancytopenia. Her blood counts recovered, but during subsequent follow-up her performance status had declined significantly, and opted to withhold further chemotherapy. She was then admitted to the hospital with acute GI bleeding and anemia. At that time she was still on anticoagulation with apixaban, and it was discontinued. She stabilized after 4 units of PRBC, and she was then discharged to the care of her sister. At this point her blood counts are adequate, but her overall condition is very poor, and her prognosis also is very poor. Plan: As I really have no further treatment options to offer her, she will continue with symptomatic/supportive care measures. I will now arrange for hospice referral, as her prognosis does appear to be very poor. Signed By: Ming Sainz M.D. <<Signature on File>>
== END 2019-11-26 10:18 | disposition home or self-care (01) ==
LOC: ONCMED 10:18
PROVIDERS: PCP Nurse Practitioner Family; Visit Provider Internal Medicine Medical Oncology
DX: C50.411 Malignant neoplasm of upper-outer quadrant of right female breast (principal); C77.3 Secondary and unspecified malignant neoplasm of axilla and upper limb lymph nodes; C79.51 Secondary malignant neoplasm of bone; C78.7 Secondary malignant neoplasm of liver and intrahepatic bile duct; C79.89 Secondary malignant neoplasm of other specified sites; D61.811 Other drug-induced pancytopenia; T45.1X5D Adverse effect of antineoplastic and immunosuppressive drugs, subsequent encounter; Z17.0 Estrogen receptor positive status [ER+]; Z85.3 Personal history of malignant neoplasm of breast; Z90.13 Acquired absence of bilateral breasts and nipples
CPT/HCPCS: 80053; 85025; 96360; 99214